=== PATIENT | male | born 1960 | race Caucasian/White ===

== ENCOUNTER 2020-05-30 12:39 | Inpatient (IN) | payer BC ==
[~2020-05-30] VITALS: Ht 162.6 cm; Wt 85.9 kg
[2020-05-30] MEDS ORDERED: methylPREDNISolone sod succ 125mg/2ml vial IV ONE (12:45)
[2020-05-30] MEDS ORDERED: ipratropium/albuterol 3ml nebule NEB ONE (12:45)
[2020-05-30 13:26] LABS: ABG BASE EXCESS 2.4 mmol/L (-2.0-2.0); ABG HCO3 27.3 mmol/L (22.0-26.0); ABG OXYGEN SATURATION 98.6 % (94-97); ABG PCO2 (T) 43.1 mmHg (35.0-48.0); ALLEN'S TEST POSITIVE; FCOHb 1.9 % (0.0-3.9); FLOW 15 L/min; FMetHb 0.3 % (0.0-1.5); FO2Hb 96.4 % (94-97)
[2020-05-30 13:37] LABS: D-DIMER 0.48 MG/L FEU (0-0.50); PARTIAL THROMBOPLASTIN TIME 30 SECONDS (22-32)
[2020-05-30] MEDS ORDERED: LORazepam 2 mg/ml vial IV ONE (14:00)
[2020-05-30 14:25] LABS: C-REACTIVE PROTEIN 9.19 MG/DL (0.0-0.5); FERRITIN 204 NG/ML (26-388); LACTATE DEHYDROGENASE 382 U/L (85-227)
[2020-05-30 14:33] LABS: CLARITY,URINE SLIGHTLY CLOUDY (Clear); COLOR,URINE YELLOW (Yellow); GLUCOSE, URINE NEGATIVE (Neg); KETONES,URINE NEGATIVE (Neg); LEUKOCYTE ESTERASE ,URINE NEGATIVE (Neg); NITRITES, URINE NEGATIVE (Neg); OCCULT BLOOD,URINE LARGE (Neg); PH,URINE 5.5 (4.8-8.0); PROTEIN,URINE 100 mg/dl (Neg)
[2020-05-30 14:39] LABS: BASOPHILS # (AUTO) 0.1 X10'3 (0-0.2); BASOPHILS % (AUTO) 0.5 % (0-1); EOSINOPHILS # (AUTO) 0.6 X10'3 (0-0.9); EOSINOPHILS % (AUTO) 4.5 % (0-6); HEMATOCRIT 49.4 % (42.0-52.0); HEMOGLOBIN 16.3 g/dl (14.0-17.9); LYMPHOCYTES # (AUTO) 1.8 X10'3 (1.1-4.8); LYMPHOCYTES % (AUTO) 14.3 % (21-51); MEAN CORPUSCULAR HEMOGLOBIN 26.6 PG (27.0-31.0); MEAN CORPUSCULAR VOLUME 80.8 FL (78-98); MEAN PLATELET VOLUME 8.8 FL (7.4-10.4); MONOCYTES # (AUTO) 1.2 X10'3 (0-0.9); MONOCYTES % (AUTO) 9.7 % (2-12); NEUTROPHILS # (AUTO) 8.8 X10'3 (1.8-7.7); PLATELET COUNT 394 X10'3 (140-440); RED BLOOD COUNT 6.12 X10'6 (4.70-6.10); RED CELL DISTRIBUTION WIDTH 15.4 % (11.5-14.5); WHITE BLOOD COUNT 12.3 X10'3 (4.5-11.0)
[2020-05-30 14:48] LABS: ALANINE AMINOTRANSFERASE 24 U/L (12-78); ALBUMIN 3.1 G/DL (3.4-5.0); ALBUMIN/GLOBULIN RATIO 0.7 (1.1-1.5); ALKALINE PHOSPHATASE 152 IU/L (46-116); ANION GAP 11 (8-16); ASPARTATE AMINO TRANSFERASE 29 U/L (10-37); BILIRUBIN,TOTAL 0.7 MG/DL (0.1-1.0); BLOOD UREA NITROGEN 16 MG/DL (7-18); BUN/CREATININE RATIO 18.2 (5.4-32.0); CALCIUM 9.4 MG/DL (8.5-10.1); CHLORIDE 100 MMOL/L (99-107); CREATININE 0.88 MG/DL (0.60-1.10); GLUCOSE 144 MG/DL (70-104); POTASSIUM 3.6 MMOL/L (3.5-5.1); SODIUM 138 MMOL/L (135-145); TOTAL CARBON DIOXIDE 26.6 MMOL/L (24-32); TOTAL PROTEIN 7.7 G/DL (6.4-8.2); eGFR 88 ML/MIN
[2020-05-30 14:52] LABS: UA COLLECTION TYPE URINAL
[2020-05-30 15:00] LABS: MUCUS STRANDS MANY /LPF (Neg)
[2020-05-30 15:02] LABS: COARSE GRANULAR CAST 0-3 /LPF (NEGATIVE); HYALINE CASTS 0-3 /LPF (NEGATIVE)
[2020-05-30 15:04] LABS: SQUAMOUS EPITHELIAL CELL,UR FEW /LPF (FEW)
[2020-05-30 15:05] LABS: BACTERIA,URINE FEW /HPF (Neg)
[2020-05-30 15:07] LABS: TRANSITIONAL EPI CELLS,URINE FEW /HPF
[2020-05-30] MEDS ORDERED: iohexol 350MG/ML 100ml bottle IV ONE (15:20)
--- NOTE | 2020-05-30 15:23 | NUR ---
patient to ct.
--- NOTE | 2020-05-30 16:12 | NUR ---
PATIENT ASLEEP.WE WILL MONITOR.
[2020-05-30] MEDS ORDERED: magnesium 2GM in 50ml NS 50 ML IV PRN (17:20)
[2020-05-30] MEDS ORDERED: magnesium 4gm in 100ml NS 100 ML IV PRN (17:20)
[2020-05-30] MEDS ORDERED: bisacodyl 10mg suppository rectal RC PRN (17:20)
[2020-05-30] MEDS ORDERED: mag hydrox/Alum hydrox/simeth 30ml oral suspension PO PRN (17:20)
[2020-05-30] MEDS ORDERED: magnesium Cl slow-release 64mg tablet PO PRN (17:20)
[2020-05-30] MEDS ORDERED: potassium CL 10mEq/100ml bag 100 ML IV PRN ×2 (17:20)
[2020-05-30] MEDS ORDERED: diphenhydrAMINE 25mg capsule PO PRN (17:20)
[2020-05-30] MEDS ORDERED: ipratropium/albuterol 3ml nebule NEB PRN (17:20)
[2020-05-30] MEDS ORDERED: magnesium hydroxide 30ml (MOM) UD suspension PO PRN (17:20)
[2020-05-30] MEDS ORDERED: HYDROcodone/acetaminophen 5mg/325mg tablet PO PRN (17:20)
[2020-05-30] MEDS ORDERED: potassium Cl 20 mEq SR tablet PO PRN ×2 (17:20)
[2020-05-30] MEDS ORDERED: ondansetron/PF 4mg/2ml inj IV PRN (17:20)
[2020-05-30] MEDS ORDERED: acetaminophen 325mg tablet PO PRN ×2 (17:20)
[2020-05-30] MEDS ORDERED: acetaminophen 650mg rectal suppository RC PRN (17:20)
[2020-05-30] MEDS ORDERED: HYDROcodone/acetaminophen 10/325mg tab PO PRN (17:20)
[2020-05-30] MEDS ORDERED: MULT-384 PO (17:55)
[2020-05-30] MEDS ORDERED: HYDR25TA4 PO (17:55)
[2020-05-30] MEDS ORDERED: MYCO500T5 PO (17:55)
[2020-05-30] MEDS ORDERED: GEMF600T89 PO (17:55)
[2020-05-30] MEDS ORDERED: ASPI-611 PO (17:55)
[2020-05-30] MEDS ORDERED: OMEG-79 PO (17:55)
[2020-05-30] MEDS ORDERED: ALBU18HF2 IH (17:55)
[2020-05-30] MEDS: levoFLOXACIN-Levaquin 750MG/D5 150 ML IV SCH (17:59)
[2020-05-30] MEDS: normal saline 1000ml 1,000 ML IV SCH (18:00)
[2020-05-30 18:19] LABS: HEMOGLOBIN A1C 5.9 % (4.5-6.2)
[2020-05-30] MEDS: ipratropium/albuterol 3ml nebule NEB SCH ×2 (18:59→23:55)
[2020-05-30 20:00] VITALS: BP 148/89
[2020-05-30] MEDS: mycophenolate mofetil 250mg capsule PO SCH (20:00)
[2020-05-30] MEDS: K and/or MAG REPLACEMENT MC SCH (20:00)
--- NOTE | 2020-05-30 20:00 | NUR ---
I have received report from Michelle CARLOS and had the opportunity to ask questions.
--- NOTE | 2020-05-30 20:10 | NUR ---
Patient transferred from ER via gurney. Patient is in stable condition AOx4. MRSA sample collected and physical assessment performed. Vitals signs Temp 98.9, HR 115, RR 26, O2 94 on 12 liters High flow nasal cannula. BP 148/89, no pain at this time. Tele monitor attached. Bed locked and lowered, call light in reach, will continue to monitor.
[2020-05-30] MEDS ORDERED: temazepam 15mg capsule PO PRN (21:00)
[2020-05-30] MEDS: methylPREDNISolone sod succ 125mg/2ml vial IV SCH (21:04)
[2020-05-30] MEDS: heparin, porcine 5000 units/ml vial SQ SCH (21:05)
[2020-05-30 22:00] VITALS: BP 116/75
--- NOTE | 2020-05-30 22:06 | NUR ---
message sent to pharmacy regarding cellcept capsules.
[2020-05-31] MEDS: LORazepam 2 mg/ml vial IV PRN ×4 (00:16→19:55)
[2020-05-31 02:00] VITALS: BP 116/87
[2020-05-31] MEDS: methylPREDNISolone sod succ 125mg/2ml vial IV SCH ×4 (02:00→19:54)
[2020-05-31] MEDS: ipratropium/albuterol 3ml nebule NEB SCH ×6 (03:42→23:14)
[2020-05-31 03:48] LABS: BASOPHILS % (AUTO) 0.3 % (0-1); EOSINOPHILS % (AUTO) 0 % (0-6); HEMOGLOBIN 15.1 g/dl (14.0-17.9); LYMPHOCYTES # (AUTO) 0.6 X10'3 (1.1-4.8); LYMPHOCYTES % (AUTO) 5.6 % (21-51); MEAN CORPUSCULAR HGB CONC 33.5 g/dL (33.0-36.5); MEAN CORPUSCULAR VOLUME 80.6 FL (78-98); MEAN PLATELET VOLUME 8.5 FL (7.4-10.4); MONOCYTES # (AUTO) 0.3 X10'3 (0-0.9); MONOCYTES % (AUTO) 2.8 % (2-12); NEUTROPHILS # (AUTO) 10.1 X10'3 (1.8-7.7); NEUTROPHILS % (AUTO) 91.3 % (42-75); PLATELET COUNT 404 X10'3 (140-440); RED BLOOD COUNT 5.59 X10'6 (4.70-6.10)
[2020-05-31 03:55] LABS: ALANINE AMINOTRANSFERASE 25 U/L (12-78); ALBUMIN 2.9 G/DL (3.4-5.0); ALBUMIN/GLOBULIN RATIO 0.6 (1.1-1.5); ALKALINE PHOSPHATASE 141 IU/L (46-116); ANION GAP 6 (8-16); ASPARTATE AMINO TRANSFERASE 18 U/L (10-37); BILIRUBIN,TOTAL 0.5 MG/DL (0.1-1.0); BLOOD UREA NITROGEN 20 MG/DL (7-18); BUN/CREATININE RATIO 21.5 (5.4-32.0); CALCIUM 9.6 MG/DL (8.5-10.1); CHLORIDE 102 MMOL/L (99-107); CREATININE 0.93 MG/DL (0.60-1.10); GLUCOSE 242 MG/DL (70-104); POTASSIUM 3.7 MMOL/L (3.5-5.1); SODIUM 138 MMOL/L (135-145); TOTAL CARBON DIOXIDE 29.9 MMOL/L (24-32); TOTAL PROTEIN 7.4 G/DL (6.4-8.2); eGFR 83 ML/MIN
[2020-05-31 03:58] LABS: CHOL/HDL RATIO 4.5 (0.00-4.99); CHOLESTEROL 140 MG/DL (0-200); HDL CHOLESTEROL 31 MG/DL (35-60); LDL CHOLESTEROL 98 MG/DL (50-100); MAGNESIUM 2.2 MG/DL (1.5-2.4); PHOSPHORUS 3.3 MG/DL (2.3-4.5); TRIGLYCERIDES 54 MG/DL (20-135)
[2020-05-31 06:00] VITALS: BP 111/78
--- NOTE | 2020-05-31 06:35 | NUR ---
Problems reprioritized. Patient report given, questions answered & plan of care reviewed with Emily CARLOS.
--- NOTE | 2020-05-31 06:54 | NUR ---
Patient in room PCU 3014. I have received report from BREANNA Ruffin and had the opportunity to ask questions and assume patient care.
[2020-05-31] MEDS: K and/or MAG REPLACEMENT MC SCH ×2 (08:41→19:42)
[2020-05-31] MEDS: levoFLOXACIN-Levaquin 750MG/D5 150 ML IV SCH (08:45)
[2020-05-31] MEDS: mycophenolate mofetil 250mg capsule PO SCH ×2 (08:46→19:54)
[2020-05-31] MEDS: multivitamins, therapeutics tablet PO SCH (08:46)
[2020-05-31] MEDS: HYDROchlorothiazide 25mg tablet PO SCH (08:46)
[2020-05-31] MEDS: aspirin 81mg tab.chew PO SCH (08:46)
[2020-05-31] MEDS: heparin, porcine 5000 units/ml vial SQ SCH ×2 (08:46→19:55)
[2020-05-31] MEDS: gemfibrozil 600mg tablet PO SCH ×2 (08:47→17:16)
[2020-05-31] MEDS: omega-3 acid ethyl esters 1GM capsule PO SCH (08:55)
[2020-05-31 11:00] VITALS: BP 104/71
[2020-05-31 12:00] VITALS: BP 122/74
[2020-05-31] MEDS: normal saline 1000ml 1,000 ML IV SCH (17:17)
[2020-05-31 18:00] VITALS: BP 125/74
--- NOTE | 2020-05-31 18:08 | NUR ---
Patient in room [facility] 3014. I have received report from BREANNA Donis and had the opportunity to ask questions and assume patient care. Addendum: 05/31/20 at 1808 by Emily Del Cid RN Problems reprioritized. Patient report given, questions answered & plan of care reviewed with BREANNA Donis.
[2020-05-31] MEDS: lactobacillus rhamnosus 10,000 MMU CELLS/CAPSULE PO SCH (19:55)
[2020-05-31 22:00] VITALS: BP 131/79
[2020-05-31] MEDS: morphine 2 MG/ML inj. syringe IV PRN (23:12)
[2020-06-01 02:00] VITALS: BP 127/75
[2020-06-01] MEDS: methylPREDNISolone sod succ 125mg/2ml vial IV SCH ×4 (02:12→20:18)
[2020-06-01] MEDS: ipratropium/albuterol 3ml nebule NEB SCH ×6 (03:32→23:18)
[2020-06-01 06:00] VITALS: BP 88/54
--- NOTE | 2020-06-01 06:04 | NUR ---
Problems reprioritized. Patient report given, questions answered & plan of care reviewed with Emily CARLOS.
[2020-06-01 06:22] LABS: BASOPHILS # (AUTO) 0.1 X10'3 (0-0.2); BASOPHILS % (AUTO) 0.3 % (0-1); EOSINOPHILS % (AUTO) 0 % (0-6); HEMATOCRIT 40.6 % (42.0-52.0); HEMOGLOBIN 13.5 g/dl (14.0-17.9); LYMPHOCYTES # (AUTO) 0.6 X10'3 (1.1-4.8); LYMPHOCYTES % (AUTO) 3.7 % (21-51); MEAN CORPUSCULAR HGB CONC 33.3 g/dL (33.0-36.5); MEAN CORPUSCULAR VOLUME 81.1 FL (78-98); MEAN PLATELET VOLUME 8.6 FL (7.4-10.4); MONOCYTES # (AUTO) 0.8 X10'3 (0-0.9); MONOCYTES % (AUTO) 4.3 % (2-12); NEUTROPHILS # (AUTO) 16.3 X10'3 (1.8-7.7); NEUTROPHILS % (AUTO) 91.7 % (42-75); PLATELET COUNT 392 X10'3 (140-440); RED CELL DISTRIBUTION WIDTH 15.3 % (11.5-14.5); WHITE BLOOD COUNT 17.8 X10'3 (4.5-11.0)
[2020-06-01 06:41] LABS: ALANINE AMINOTRANSFERASE 24 U/L (12-78); ALBUMIN 2.7 G/DL (3.4-5.0); ALBUMIN/GLOBULIN RATIO 0.7 (1.1-1.5); ALKALINE PHOSPHATASE 123 IU/L (46-116); ANION GAP 4 (8-16); ASPARTATE AMINO TRANSFERASE 15 U/L (10-37); BILIRUBIN,TOTAL 0.3 MG/DL (0.1-1.0); BLOOD UREA NITROGEN 18 MG/DL (7-18); BUN/CREATININE RATIO 21.4 (5.4-32.0); CALCIUM 9.1 MG/DL (8.5-10.1); CHLORIDE 101 MMOL/L (99-107); CREATININE 0.84 MG/DL (0.60-1.10); GLUCOSE 284 MG/DL (70-104); PHOSPHORUS 3.3 MG/DL (2.3-4.5); SODIUM 137 MMOL/L (135-145); TOTAL CARBON DIOXIDE 31.6 MMOL/L (24-32); TOTAL PROTEIN 6.4 G/DL (6.4-8.2); eGFR > 90 ML/MIN
[2020-06-01] MEDS: K and/or MAG REPLACEMENT MC SCH ×2 (08:22→20:00)
[2020-06-01] MEDS: multivitamins, therapeutics tablet PO SCH (08:24)
[2020-06-01] MEDS: aspirin 81mg tab.chew PO SCH (08:24)
[2020-06-01] MEDS: omega-3 acid ethyl esters 1GM capsule PO SCH (08:24)
[2020-06-01] MEDS: gemfibrozil 600mg tablet PO SCH ×2 (08:24→16:03)
[2020-06-01] MEDS: levoFLOXACIN-Levaquin 750MG/D5 150 ML IV SCH (08:24)
[2020-06-01] MEDS: lactobacillus rhamnosus 10,000 MMU CELLS/CAPSULE PO SCH ×2 (08:24→20:18)
[2020-06-01] MEDS: mycophenolate mofetil 250mg capsule PO SCH ×2 (08:24→20:19)
[2020-06-01] MEDS: heparin, porcine 5000 units/ml vial SQ SCH ×2 (08:25→20:18)
[2020-06-01] MEDS: HYDROchlorothiazide 25mg tablet PO SCH (08:29)
[2020-06-01] MEDS: LORazepam 2 mg/ml vial IV PRN ×3 (08:40→20:18)
[2020-06-01 11:00] VITALS: BP 112/72
--- NOTE | 2020-06-01 13:18 | NUR ---
New orders from mandi to discontinue normal saline @50cc
[2020-06-01 15:00] VITALS: BP 126/80
--- NOTE | 2020-06-01 15:30 | NUR ---
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 Replaced by RT.
[2020-06-01 18:00] VITALS: BP 127/84
--- NOTE | 2020-06-01 18:14 | NUR ---
Problems reprioritized. Patient report given, questions answered & plan of care reviewed with BREANNA Yanez.
--- NOTE | 2020-06-01 18:25 | NUR ---
Patient in room PCU 3014. I have received report from Emily CARLOS and had the opportunity to ask questions and assume patient care.
--- NOTE | 2020-06-01 21:50 | NUR ---
pt sat on the edge of the bed and began to desat and had persistent coughing. HiFlow @ 15L and NRB applied @ 15L for aprox. 15-20 mins until pt breathing was under control and saturations were back WNL. pt is currently on 15L HiFlow.
[2020-06-01 22:00] VITALS: BP 111/70
[2020-06-01] MEDS: morphine 2 MG/ML inj. syringe IV PRN (22:00)
[2020-06-02] MEDS: methylPREDNISolone sod succ 125mg/2ml vial IV SCH ×4 (01:19→19:59)
[2020-06-02 02:00] VITALS: BP 136/98
[2020-06-02 02:08] LABS: ALANINE AMINOTRANSFERASE 25 U/L (12-78); ALBUMIN 2.8 G/DL (3.4-5.0); ALBUMIN/GLOBULIN RATIO 0.8 (1.1-1.5); ALKALINE PHOSPHATASE 117 IU/L (46-116); ANION GAP 4 (8-16); ASPARTATE AMINO TRANSFERASE 13 U/L (10-37); BILIRUBIN,TOTAL 0.3 MG/DL (0.1-1.0); BLOOD UREA NITROGEN 21 MG/DL (7-18); BUN/CREATININE RATIO 24.4 (5.4-32.0); CHLORIDE 99 MMOL/L (99-107); CREATININE 0.86 MG/DL (0.60-1.10); GLUCOSE 189 MG/DL (70-104); MAGNESIUM 2.1 MG/DL (1.5-2.4); POTASSIUM 4.5 MMOL/L (3.5-5.1); SODIUM 138 MMOL/L (135-145); TOTAL CARBON DIOXIDE 35.1 MMOL/L (24-32); TOTAL PROTEIN 6.5 G/DL (6.4-8.2); eGFR > 90 ML/MIN
[2020-06-02 02:18] LABS: BASOPHILS % (AUTO) 0.1 % (0-1); EOSINOPHILS % (AUTO) 0 % (0-6); HEMATOCRIT 41.2 % (42.0-52.0); HEMOGLOBIN 13.4 g/dl (14.0-17.9); LYMPHOCYTES # (AUTO) 0.7 X10'3 (1.1-4.8); LYMPHOCYTES % (AUTO) 4.6 % (21-51); MEAN CORPUSCULAR HGB CONC 32.4 g/dL (33.0-36.5); MEAN CORPUSCULAR VOLUME 80.2 FL (78-98); MEAN PLATELET VOLUME 8.7 FL (7.4-10.4); MONOCYTES # (AUTO) 0.7 X10'3 (0-0.9); MONOCYTES % (AUTO) 4.4 % (2-12); NEUTROPHILS # (AUTO) 14.6 X10'3 (1.8-7.7); NEUTROPHILS % (AUTO) 90.9 % (42-75); PLATELET COUNT 405 X10'3 (140-440); RED BLOOD COUNT 5.14 X10'6 (4.70-6.10); RED CELL DISTRIBUTION WIDTH 14.9 % (11.5-14.5); WHITE BLOOD COUNT 16.1 X10'3 (4.5-11.0)
[2020-06-02] MEDS: ipratropium/albuterol 3ml nebule NEB SCH ×6 (02:51→22:29)
--- NOTE | 2020-06-02 06:18 | NUR ---
Problems reprioritized. Patient report given, questions answered & plan of care reviewed with Daniela CARLOS.
--- NOTE | 2020-06-02 06:18 | NUR ---
Patient in room PCU 3014. I have received report from BREANNA Yanez and had the opportunity to ask questions and assume patient care.
[2020-06-02] MEDS: K and/or MAG REPLACEMENT MC SCH ×2 (07:19→20:00)
[2020-06-02 07:23] VITALS: BP 111/73
[2020-06-02] MEDS: LORazepam 2 mg/ml vial IV PRN ×3 (08:16→19:46)
[2020-06-02] MEDS: HYDROchlorothiazide 25mg tablet PO SCH (08:24)
[2020-06-02] MEDS: multivitamins, therapeutics tablet PO SCH (08:24)
[2020-06-02] MEDS: aspirin 81mg tab.chew PO SCH (08:24)
[2020-06-02] MEDS: mycophenolate mofetil 250mg capsule PO SCH ×2 (08:24→19:59)
[2020-06-02] MEDS: gemfibrozil 600mg tablet PO SCH ×2 (08:24→16:47)
[2020-06-02] MEDS: lactobacillus rhamnosus 10,000 MMU CELLS/CAPSULE PO SCH ×2 (08:24→19:59)
[2020-06-02] MEDS: omega-3 acid ethyl esters 1GM capsule PO SCH (08:24)
[2020-06-02] MEDS: heparin, porcine 5000 units/ml vial SQ SCH ×2 (08:25→19:59)
[2020-06-02 11:37] VITALS: BP 111/75
[2020-06-02] MEDS: levoFLOXACIN 750MG TABLET PO SCH (11:50)
[2020-06-02 15:33] VITALS: BP 123/76
[2020-06-02 18:00] VITALS: BP 124/79
--- NOTE | 2020-06-02 18:24 | NUR ---
Problems reprioritized. Patient report given, questions answered & plan of care reviewed with BREANNA Reynolds.
[2020-06-02] MEDS: morphine 2 MG/ML inj. syringe IV PRN (21:42)
[2020-06-03] VITALS (7 sets, daily range): BP systolic 115–136; BP diastolic 66–82
[2020-06-03] MEDS: LORazepam 2 mg/ml vial IV PRN ×5 (00:08→23:59)
[2020-06-03] MEDS: methylPREDNISolone sod succ 125mg/2ml vial IV SCH ×4 (00:08→23:58)
[2020-06-03] MEDS: ipratropium/albuterol 3ml nebule NEB SCH ×6 (03:00→23:20)
[2020-06-03] MEDS: morphine 2 MG/ML inj. syringe IV PRN ×3 (03:33→19:55)
[2020-06-03 05:54] LABS: BASOPHILS % (AUTO) 0.2 % (0-1); EOSINOPHILS % (AUTO) 0 % (0-6); HEMOGLOBIN 13.6 g/dl (14.0-17.9); LYMPHOCYTES # (AUTO) 0.7 X10'3 (1.1-4.8); LYMPHOCYTES % (AUTO) 5.5 % (21-51); MEAN CORPUSCULAR HGB CONC 33.1 g/dL (33.0-36.5); MEAN CORPUSCULAR VOLUME 81.5 FL (78-98); MEAN PLATELET VOLUME 8.5 FL (7.4-10.4); MONOCYTES # (AUTO) 0.6 X10'3 (0-0.9); MONOCYTES % (AUTO) 4.8 % (2-12); NEUTROPHILS # (AUTO) 11.6 X10'3 (1.8-7.7); NEUTROPHILS % (AUTO) 89.5 % (42-75); PLATELET COUNT 379 X10'3 (140-440); RED BLOOD COUNT 5.02 X10'6 (4.70-6.10); RED CELL DISTRIBUTION WIDTH 14.8 % (11.5-14.5)
[2020-06-03 06:15] LABS: ALANINE AMINOTRANSFERASE 24 U/L (12-78); ALBUMIN 2.8 G/DL (3.4-5.0); ALBUMIN/GLOBULIN RATIO 0.8 (1.1-1.5); ALKALINE PHOSPHATASE 130 IU/L (46-116); ANION GAP 4 (8-16); ASPARTATE AMINO TRANSFERASE 12 U/L (10-37); BILIRUBIN,TOTAL 0.3 MG/DL (0.1-1.0); BLOOD UREA NITROGEN 18 MG/DL (7-18); BUN/CREATININE RATIO 20.9 (5.4-32.0); CALCIUM 9.2 MG/DL (8.5-10.1); CHLORIDE 97 MMOL/L (99-107); CREATININE 0.86 MG/DL (0.60-1.10); GLUCOSE 305 MG/DL (70-104); MAGNESIUM 2.3 MG/DL (1.5-2.4); POTASSIUM 4.4 MMOL/L (3.5-5.1); SODIUM 136 MMOL/L (135-145); TOTAL CARBON DIOXIDE 35.2 MMOL/L (24-32); TOTAL PROTEIN 6.3 G/DL (6.4-8.2); eGFR > 90 ML/MIN
--- NOTE | 2020-06-03 06:33 | NUR ---
Problems reprioritized. Patient report given, questions answered & plan of care reviewed with BREANNA Green.
--- NOTE | 2020-06-03 06:36 | NUR ---
Patient in room PCU 3014. I have received report from Gail CARLOS and had the opportunity to ask questions and assume patient care. Patient resting in bed, on 12L high flow, offers no complaints, will continue to monitor.
[2020-06-03] MEDS: K and/or MAG REPLACEMENT MC SCH ×2 (08:00→20:00)
[2020-06-03] MEDS: gemfibrozil 600mg tablet PO SCH ×2 (08:30→16:01)
[2020-06-03] MEDS: omega-3 acid ethyl esters 1GM capsule PO SCH (08:31)
[2020-06-03] MEDS: lactobacillus rhamnosus 10,000 MMU CELLS/CAPSULE PO SCH ×2 (08:31→19:55)
[2020-06-03] MEDS: aspirin 81mg tab.chew PO SCH (08:31)
[2020-06-03] MEDS: mycophenolate mofetil 250mg capsule PO SCH ×2 (08:31→19:56)
[2020-06-03] MEDS: HYDROchlorothiazide 25mg tablet PO SCH (08:31)
[2020-06-03] MEDS: multivitamins, therapeutics tablet PO SCH (08:31)
[2020-06-03] MEDS: heparin, porcine 5000 units/ml vial SQ SCH ×2 (08:32→19:56)
[2020-06-03] MEDS: levoFLOXACIN 750MG TABLET PO SCH (12:05)
--- NOTE | 2020-06-03 18:32 | NUR ---
Problems reprioritized. Patient report given, questions answered & plan of care reviewed with Norma CARLOS.
--- NOTE | 2020-06-03 18:43 | NUR ---
Patient in room PCU 3014. I have received report from BREANNA CHERRY and had the opportunity to ask questions and assume patient care.
[2020-06-04 02:00] VITALS: BP 117/67
[2020-06-04] MEDS: ipratropium/albuterol 3ml nebule NEB SCH ×6 (02:54→23:23)
--- NOTE | 2020-06-04 06:22 | NUR ---
Problems reprioritized. Patient report given, questions answered & plan of care reviewed with DILIP RN.
[2020-06-04 06:29] LABS: BASOPHILS % (AUTO) 0.1 % (0-1); EOSINOPHILS % (AUTO) 0 % (0-6); HEMATOCRIT 43.2 % (42.0-52.0); HEMOGLOBIN 14.1 g/dl (14.0-17.9); LYMPHOCYTES # (AUTO) 0.8 X10'3 (1.1-4.8); LYMPHOCYTES % (AUTO) 6.1 % (21-51); MEAN CORPUSCULAR HEMOGLOBIN 26.3 PG (27.0-31.0); MEAN CORPUSCULAR HGB CONC 32.7 g/dL (33.0-36.5); MEAN CORPUSCULAR VOLUME 80.5 FL (78-98); MEAN PLATELET VOLUME 8.4 FL (7.4-10.4); MONOCYTES # (AUTO) 0.6 X10'3 (0-0.9); MONOCYTES % (AUTO) 4.1 % (2-12); NEUTROPHILS # (AUTO) 12.2 X10'3 (1.8-7.7); NEUTROPHILS % (AUTO) 89.7 % (42-75); PLATELET COUNT 429 X10'3 (140-440); RED BLOOD COUNT 5.36 X10'6 (4.70-6.10); RED CELL DISTRIBUTION WIDTH 14.9 % (11.5-14.5); WHITE BLOOD COUNT 13.6 X10'3 (4.5-11.0)
--- NOTE | 2020-06-04 06:31 | NUR ---
Patient in room PCU 3014. I have received report from Norma HERRERA and had the opportunity to ask questions and assume patient care. Patient awake and oriented, O2sat in the 80s, bumped to 15L high flow and anxious, assistant casino shift manager RN will administer anxiety medication, will continue to monitor.
[2020-06-04] MEDS: LORazepam 2 mg/ml vial IV PRN ×2 (06:32→13:30)
[2020-06-04 06:44] LABS: ALANINE AMINOTRANSFERASE 43 U/L (12-78); ALBUMIN 2.8 G/DL (3.4-5.0); ALBUMIN/GLOBULIN RATIO 0.8 (1.1-1.5); ALKALINE PHOSPHATASE 120 IU/L (46-116); ANION GAP 2 (8-16); ASPARTATE AMINO TRANSFERASE 20 U/L (10-37); BILIRUBIN,TOTAL 0.3 MG/DL (0.1-1.0); BLOOD UREA NITROGEN 18 MG/DL (7-18); BUN/CREATININE RATIO 22.5 (5.4-32.0); CALCIUM 9.2 MG/DL (8.5-10.1); CHLORIDE 99 MMOL/L (99-107); GLUCOSE 224 MG/DL (70-104); MAGNESIUM 2.2 MG/DL (1.5-2.4); PHOSPHORUS 3.4 MG/DL (2.3-4.5); POTASSIUM 4.7 MMOL/L (3.5-5.1); SODIUM 136 MMOL/L (135-145); TOTAL CARBON DIOXIDE 35.1 MMOL/L (24-32); TOTAL PROTEIN 6.3 G/DL (6.4-8.2); eGFR > 90 ML/MIN
[2020-06-04] MEDS: K and/or MAG REPLACEMENT MC SCH ×2 (06:57→20:00)
[2020-06-04 07:00] VITALS: BP 118/74
[2020-06-04] MEDS: multivitamins, therapeutics tablet PO SCH (07:22)
[2020-06-04] MEDS: mycophenolate mofetil 250mg capsule PO SCH ×2 (07:22→20:45)
[2020-06-04] MEDS: lactobacillus rhamnosus 10,000 MMU CELLS/CAPSULE PO SCH (07:22)
[2020-06-04] MEDS: methylPREDNISolone sod succ 125mg/2ml vial IV SCH (07:22)
[2020-06-04] MEDS: aspirin 81mg tab.chew PO SCH (07:22)
[2020-06-04] MEDS: gemfibrozil 600mg tablet PO SCH ×2 (07:22→17:18)
[2020-06-04] MEDS: omega-3 acid ethyl esters 1GM capsule PO SCH (07:23)
[2020-06-04] MEDS: HYDROchlorothiazide 25mg tablet PO SCH (07:23)
[2020-06-04] MEDS: heparin, porcine 5000 units/ml vial SQ SCH ×2 (07:24→20:47)
[2020-06-04 07:36] LABS: GIANT PLATELET FEW; TOTAL CELLS COUNTED 100
[2020-06-04 07:37] LABS: LARGE PLATELETS FEW; PLATELET ESTIMATE NORMAL; TOXIC GRANULATION 1+
[2020-06-04 11:00] VITALS: BP 131/86
--- NOTE | 2020-06-04 11:27 | NUR ---
Good appetite, eating 75-100% of meals. Recommend: 1. continue heart healthy diet 2. bowel care as needed 3. Wt per rx Addendum: 06/04/20 at [address] Amended: Links added.
[2020-06-04] MEDS: levoFLOXACIN 750MG TABLET PO SCH (13:28)
[2020-06-04 15:00] VITALS: BP 119/86
[2020-06-04] MEDS: morphine 2 MG/ML inj. syringe IV PRN ×2 (17:19)
[2020-06-04 18:00] VITALS: BP 119/92
--- NOTE | 2020-06-04 18:15 | NUR ---
Patient in room PCU 3014. I have received report from BREANNA HCERRY and had the opportunity to ask questions and assume patient care.
--- NOTE | 2020-06-04 18:16 | NUR ---
Problems reprioritized. Patient report given, questions answered & plan of care reviewed with Norma Casanova
[2020-06-04 22:00] VITALS: BP 94/76
[2020-06-05 02:00] VITALS: BP 109/79
[2020-06-05] MEDS: LORazepam 2 mg/ml vial IV PRN ×4 (02:56→18:53)
[2020-06-05] MEDS: ipratropium/albuterol 3ml nebule NEB SCH ×6 (03:18→23:23)
[2020-06-05 06:00] VITALS: BP 108/66
--- NOTE | 2020-06-05 06:44 | NUR ---
Patient in room PCU 3014. I have received report from BREANNA GUERRERO and had the opportunity to ask questions and assume patient care.
[2020-06-05] MEDS: gemfibrozil 600mg tablet PO SCH ×2 (07:06→17:01)
[2020-06-05] MEDS: aspirin 81mg tab.chew PO SCH (07:54)
[2020-06-05] MEDS: mycophenolate mofetil 250mg capsule PO SCH ×2 (07:56→20:50)
[2020-06-05] MEDS: HYDROchlorothiazide 25mg tablet PO SCH (07:57)
[2020-06-05] MEDS: OMEGA-3/DHA/EPA/FISH OIL 1 EACH CAPSULE.DR PO SCH (07:57)
[2020-06-05] MEDS: multivitamins, therapeutics tablet PO SCH (07:58)
[2020-06-05] MEDS: predniSONE 20 mg tablet PO SCH (07:58)
[2020-06-05] MEDS: heparin, porcine 5000 units/ml vial SQ SCH ×2 (07:59→20:49)
[2020-06-05] MEDS: K and/or MAG REPLACEMENT MC SCH ×2 (08:00→20:00)
[2020-06-05 11:00] VITALS: BP 115/82
[2020-06-05] MEDS: levoFLOXACIN 750MG TABLET PO SCH (11:39)
[2020-06-05 15:00] VITALS: BP 113/87
[2020-06-05 18:00] VITALS: BP 127/87
--- NOTE | 2020-06-05 18:34 | NUR ---
Problems reprioritized. Patient report given, questions answered & plan of care reviewed with BREANNA GUERRERO.
[2020-06-05 22:00] VITALS: BP 119/82
[2020-06-05] MEDS: morphine 2 MG/ML inj. syringe IV PRN (23:05)
[2020-06-06 02:00] VITALS: BP 134/88
[2020-06-06] MEDS: ipratropium/albuterol 3ml nebule NEB SCH ×6 (03:06→23:52)
[2020-06-06] MEDS: LORazepam 2 mg/ml vial IV PRN (05:02)
--- NOTE | 2020-06-06 05:22 | NUR ---
Patient in room U 3014. I have received report from BREANNA Del Cid and had the opportunity to ask questions and assume patient care. Addendum: 06/06/20 at 0525 by Norma Bravo RN report received at 1820 on 06/05. original note is timed incorrectly.
[2020-06-06 06:30] VITALS: BP 106/88
--- NOTE | 2020-06-06 06:37 | NUR ---
Received report from Norma CARLOS, [facility].
--- NOTE | 2020-06-06 06:50 | NUR ---
Problems reprioritized. Patient report given, questions answered & plan of care reviewed with BREANNA Fernandes.
[2020-06-06] MEDS: K and/or MAG REPLACEMENT MC SCH ×2 (08:00→19:36)
[2020-06-06] MEDS: HYDROchlorothiazide 25mg tablet PO SCH (09:23)
[2020-06-06] MEDS: multivitamins, therapeutics tablet PO SCH (09:23)
[2020-06-06] MEDS: OMEGA-3/DHA/EPA/FISH OIL 1 EACH CAPSULE.DR PO SCH (09:23)
[2020-06-06] MEDS: predniSONE 20 mg tablet PO SCH (09:23)
[2020-06-06] MEDS: aspirin 81mg tab.chew PO SCH (09:23)
[2020-06-06] MEDS: gemfibrozil 600mg tablet PO SCH ×2 (09:23→17:31)
[2020-06-06] MEDS: heparin, porcine 5000 units/ml vial SQ SCH ×2 (09:24→19:30)
[2020-06-06] MEDS: mycophenolate mofetil 250mg capsule PO SCH ×2 (09:24→19:35)
[2020-06-06 11:00] VITALS: BP 111/77
[2020-06-06] MEDS: levoFLOXACIN 750MG TABLET PO SCH (12:08)
--- NOTE | 2020-06-06 13:39 | NUR ---
Paged hosp, "Dena [id number] Deangelo Caldera has iv Ativan 0.5 mg ordered. Can we change it to oral?" awaiting orders.
[2020-06-06 15:00] VITALS: BP 103/60
[2020-06-06] MEDS: LORazepam 1 MG tablet PO PRN ×2 (17:32→22:20)
[2020-06-06 18:00] VITALS: BP 121/86
--- NOTE | 2020-06-06 18:26 | NUR ---
GAVE REPORT TO RADHA CARLOS, TRANSFERRED CARE.
--- NOTE | 2020-06-06 21:18 | NUR ---
Patient in room PCU 3014. I have received report from Dena CARLOS and had the opportunity to ask questions and assume patient care.
[2020-06-06 22:00] VITALS: BP 96/67
[2020-06-07 02:00] VITALS: BP 125/77
[2020-06-07] MEDS: ipratropium/albuterol 3ml nebule NEB SCH ×3 (03:21→11:23)
[2020-06-07 06:00] VITALS: BP 100/71
--- NOTE | 2020-06-07 06:14 | NUR ---
Problems reprioritized. Patient report given, questions answered & plan of care reviewed with Edin CARLOS.
--- NOTE | 2020-06-07 06:45 | NUR ---
Patient in room PCU 3014. I have received report from Laly CARLOS and had the opportunity to ask questions and assume patient care.
--- NOTE | 2020-06-07 07:29 | NUR ---
Problems reprioritized. Patient report given, questions answered & plan of care reviewed with Dinah CARLOS.
[2020-06-07] MEDS: K and/or MAG REPLACEMENT MC SCH (08:00)
[2020-06-07] MEDS: predniSONE 20 mg tablet PO SCH (08:33)
[2020-06-07] MEDS: HYDROchlorothiazide 25mg tablet PO SCH (08:33)
[2020-06-07] MEDS: OMEGA-3/DHA/EPA/FISH OIL 1 EACH CAPSULE.DR PO SCH (08:33)
[2020-06-07] MEDS: aspirin 81mg tab.chew PO SCH (08:33)
[2020-06-07] MEDS: multivitamins, therapeutics tablet PO SCH (08:34)
[2020-06-07] MEDS: mycophenolate mofetil 250mg capsule PO SCH (08:37)
[2020-06-07] MEDS: heparin, porcine 5000 units/ml vial SQ SCH (08:39)
[2020-06-07] MEDS: LORazepam 1 MG tablet PO PRN (08:47)
[2020-06-07] MEDS: gemfibrozil 600mg tablet PO SCH (08:57)
[2020-06-07] MEDS ORDERED: LEVO750T46 PO (10:26)
[2020-06-07] MEDS ORDERED: IPRA3AMP9 NEB (10:26)
[2020-06-07] MEDS ORDERED: PRED20TA PO (10:28)
[2020-06-07 11:00] VITALS: BP 131/68
--- NOTE | 2020-06-07 11:52 | NUR ---
O2 Sat at rest on room air:_89__% If below 89%: Recovery O2 Sat at rest on __9_LPM:__93_%:___% via high flow nasal cannula (mask/nasal cannula, etc..) No further documentation is necessary. If O2 Sat did not drop below 89% on room air,ambulate patient on room air. O2 Sat while ambulating on room air:___% Recovery O2 Sat while ambulating on ___LPM:___% No further documentation is necessary. If patient does not drop below 89% while ambulating, he/she does not qualify for home O2.
--- NOTE | 2020-06-07 11:54 | NUR ---
Patient in room PCU 3014. I have received report from Edin and had the opportunity to ask questions and assume patient care.
== END 2020-06-07 15:14 | disposition home health service (06) | DRG 189 ==
LOC: ER 12:39 → ED HOLD 17:17 → PCU 3S 20:16
PROVIDERS: ADMIT Family Medicine; ATTEND Family Medicine
PROC: B32T1ZZ Computerized Tomography (CT Scan) of Left Pulmonary Artery using Low Osmolar Contrast (ICD-10-PCS; principal; 2020-05-30)
PROC: B32S1ZZ Computerized Tomography (CT Scan) of Right Pulmonary Artery using Low Osmolar Contrast (ICD-10-PCS; 2020-05-30)
DX: J96.21 Acute and chronic respiratory failure with hypoxia (principal); J44.1 Chronic obstructive pulmonary disease with (acute) exacerbation; E78.1 Pure hyperglyceridemia; E78.5 Hyperlipidemia, unspecified; J84.10 Pulmonary fibrosis, unspecified; I10 Essential (primary) hypertension; J98.4 Other disorders of lung; Z20.828 Contact with and (suspected) exposure to other viral communicable diseases; D72.829 Elevated white blood cell count, unspecified; T38.0X5A Adverse effect of glucocorticoids and synthetic analogues, initial encounter; Z79.899 Other long term (current) drug therapy; Z83.3 Family history of diabetes mellitus; Z87.891 Personal history of nicotine dependence
CPT/HCPCS: 36415; 36600; 71045; 71275; 80053; 80061; 81001; 82728; 82803; 83036; 83605; 83615; 83735; 83880; 84100; 84145; 84484; 85007; 85018; 85025; 85379; 85384; 85610; 85730; 86140; 87040; 87081; 87088; 87635; 93306; 93308; 94640; 94760; 96365; 96375; 97116; 97161; 97530; 99285; C9803; G0378; J1644; J1956; J2060; J2270; J2930; J7030; J7512; J7517; Q0163; Q9967

== ENCOUNTER 2020-07-12 01:30 | Inpatient (IN) | payer BC ==
[~2020-07-12] VITALS: Ht 167.6 cm; Wt 72.7 kg
[~2020-07-12 01:30] MED LIST: ALBU18HF2 IH; ASPI-611 PO; GEMF600T89 PO; HYDR25TA4 PO; IPRA3AMP9 NEB; LEVO750T46 PO; MULT-384 PO; MYCO500T5 PO; OMEG-79 PO; PRED20TA PO
[2020-07-12 01:58] LABS: BASOPHILS # (AUTO) 0.1 X10'3 (0-0.2); BASOPHILS % (AUTO) 0.6 % (0-1); EOSINOPHILS # (AUTO) 0.5 X10'3 (0-0.9); EOSINOPHILS % (AUTO) 3.1 % (0-6); HEMATOCRIT 46.9 % (42.0-52.0); HEMOGLOBIN 15.5 g/dl (14.0-17.9); LYMPHOCYTES # (AUTO) 1.2 X10'3 (1.1-4.8); LYMPHOCYTES % (AUTO) 8.1 % (21-51); MEAN CORPUSCULAR HEMOGLOBIN 26.3 PG (27.0-31.0); MEAN CORPUSCULAR HGB CONC 33.1 g/dL (33.0-36.5); MEAN CORPUSCULAR VOLUME 79.6 FL (78-98); MEAN PLATELET VOLUME 8.4 FL (7.4-10.4); MONOCYTES # (AUTO) 1.2 X10'3 (0-0.9); MONOCYTES % (AUTO) 7.6 % (2-12); NEUTROPHILS # (AUTO) 12.2 X10'3 (1.8-7.7); NEUTROPHILS % (AUTO) 80.6 % (42-75); PLATELET COUNT 443 X10'3 (140-440); RED BLOOD COUNT 5.89 X10'6 (4.70-6.10); RED CELL DISTRIBUTION WIDTH 16.3 % (11.5-14.5); WHITE BLOOD COUNT 15.2 X10'3 (4.5-11.0)
[2020-07-12] MEDS ORDERED: iohexol 350MG/ML 100ml bottle IV ONE (01:59)
[2020-07-12 02:12] LABS: D-DIMER 0.58 MG/L FEU (0-0.50)
[2020-07-12 02:13] LABS: ALANINE AMINOTRANSFERASE 19 U/L (12-78); ALBUMIN 2.9 G/DL (3.4-5.0); ALBUMIN/GLOBULIN RATIO 0.7 (1.1-1.5); ALKALINE PHOSPHATASE 128 IU/L (46-116); ANION GAP 1 (8-16); ASPARTATE AMINO TRANSFERASE 21 U/L (10-37); BILIRUBIN,TOTAL 0.4 MG/DL (0.1-1.0); BLOOD UREA NITROGEN 12 MG/DL (7-18); BUN/CREATININE RATIO 13.3 (5.4-32.0); CHLORIDE 99 MMOL/L (99-107); GLUCOSE 215 MG/DL (70-104); POTASSIUM 4.2 MMOL/L (3.5-5.1); SODIUM 135 MMOL/L (135-145); TOTAL CARBON DIOXIDE 34.6 MMOL/L (24-32); eGFR 86 ML/MIN
[2020-07-12 02:27] LABS: C-REACTIVE PROTEIN 3.59 MG/DL (0.0-0.5); FERRITIN 189 NG/ML (26-388); LACTATE DEHYDROGENASE 295 U/L (85-227)
[2020-07-12] MEDS ORDERED: heparin 10,000 units/1 ML INJ IV ONE (02:40)
[2020-07-12] MEDS ORDERED: dexamethasone sod phosphate 10mg/ml inj IV STA (03:08)
[2020-07-12] MEDS: heparin 25,000 UNIT/250ml bag 250 ML IV SCH (03:17)
[2020-07-12] MEDS ORDERED: CefTRIAXone 2gm/D5W 50ml BAG 50 ML IV ONE (03:30)
[2020-07-12] MEDS ORDERED: HYDROcodone/acetaminophen 5mg/325mg tablet PO PRN (03:35)
[2020-07-12] MEDS ORDERED: potassium Cl 40MEQ/1/2NS 520ml 520 ML IV PRN ×2 (03:35)
[2020-07-12] MEDS ORDERED: ondansetron/PF 4mg/2ml inj IV PRN (03:35)
[2020-07-12] MEDS ORDERED: magnesium Cl slow-release 64mg tablet PO PRN (03:35)
[2020-07-12] MEDS ORDERED: mag hydrox/Alum hydrox/simeth 30ml oral suspension PO PRN (03:35)
[2020-07-12] MEDS ORDERED: magnesium 2GM in 50ml NS 50 ML IV PRN (03:35)
[2020-07-12] MEDS ORDERED: magnesium 4gm in 100ml NS 100 ML IV PRN (03:35)
[2020-07-12] MEDS ORDERED: acetaminophen 325mg tablet PO PRN (03:35)
[2020-07-12] MEDS ORDERED: magnesium hydroxide 30ml (MOM) UD suspension PO PRN (03:35)
[2020-07-12] MEDS ORDERED: potassium Cl 20 mEq SR tablet PO PRN ×2 (03:35)
[2020-07-12] MEDS ORDERED: MESSAGE TO PHARMACY PO ONE (05:25)
[2020-07-12] MEDS ORDERED: glucagon, human recombinant 1mg kit SUBCUT PRN (05:25)
[2020-07-12] MEDS ORDERED: dextrose ORAL solution 15 GM/59 ML bottle PO PRN ×2 (05:25)
[2020-07-12] MEDS ORDERED: dextrose 50%-water 50ml dispensing syringe IV PRN ×2 (05:25)
[2020-07-12] MEDS: K and/or MAG REPLACEMENT MC SCH ×2 (08:00→20:00)
--- NOTE | 2020-07-12 08:43 | NUR ---
JAZZY IS PHYSICIAN 07/12
[2020-07-12] MEDS: azithromycin/NS 500mg/250ml 250 ML IV SCH (08:46)
[2020-07-12] MEDS: predniSONE 20 mg tablet PO SCH (08:46)
[2020-07-12] MEDS: heparin 10,000 units/1 ML INJ IV PRN ×2 (10:29→17:21)
--- NOTE | 2020-07-12 15:33 | NUR ---
Patient in room ED 5. I have received report from BREANNA Duncan and had the opportunity to ask questions and awaiting pt's arrival from ED.
[2020-07-12 15:37] VITALS: BP 122/79
--- NOTE | 2020-07-12 15:37 | NUR ---
Patient arrived from ED, ambulated from gurney to bed with minimal assistance. Alert and oriented to room. BLL, SRx2, CL within reach, non skid socks on, will continue to frequently round. 2 RN skin check complete, MRSA swab collected, tele monitor on. First set of vitals complete.
--- NOTE | 2020-07-12 16:20 | NUR ---
Paged RT Re Deangelo Caldera Pt came to floor from ED without salter. He's on 15L NC. Can I have an RT set this up please. Thank you. [phone]
[2020-07-12 18:00] VITALS: BP 113/67
--- NOTE | 2020-07-12 18:29 | NUR ---
Problems reprioritized. Patient report given, questions answered & plan of care reviewed with BREANNA Kennedy. All pt needs met at change of shift.
--- NOTE | 2020-07-12 18:31 | NUR ---
Patient in room U 3016. I have received report from BREANNA Chapman and had the opportunity to ask questions and assume patient care. Patient resting in bed, no signs of distress. Safety measures in place, bed in low and locked position. Call light and personal items within reach. Will continue to monitor throughout shift.
[2020-07-12] MEDS: insulin glargine (Lantus) pen - multi-dose SQ SCH (21:00)
--- NOTE | 2020-07-12 21:00 | NUR ---
Patient in room PCU 3016. I have received report from BREANNA Eckert and had the opportunity to ask questions and assume patient care. Patient brought up on gurney, no signs of distress. Transferred self to bed. Belongings stayed with patient. Safety measures in place, bed in low and locked position. Call light and personal items within reach. Will continue to monitor.
[2020-07-12 22:00] VITALS: BP 99/66
[2020-07-13] MEDS: heparin 25,000 UNIT/250ml bag 250 ML IV SCH ×3 (00:20→16:04)
[2020-07-13 02:00] VITALS: BP 104/65
[2020-07-13] MEDS: CefTRIAXone/D5W-Rocephin 1gm 50 ML IV SCH (03:15)
--- NOTE | 2020-07-13 06:33 | NUR ---
Patient in room PCU 3016. I have received report from BREANNA Kennedy and had the opportunity to ask questions and assume patient care. Pt sleeping comfortably at change of shift.
[2020-07-13 07:00] VITALS: BP 102/71
[2020-07-13 07:03] LABS: BASOPHILS # (AUTO) 0.1 X10'3 (0-0.2); BASOPHILS % (AUTO) 0.4 % (0-1); EOSINOPHILS # (AUTO) 0.3 X10'3 (0-0.9); EOSINOPHILS % (AUTO) 1.9 % (0-6); HEMATOCRIT 40.2 % (42.0-52.0); LYMPHOCYTES # (AUTO) 2.4 X10'3 (1.1-4.8); LYMPHOCYTES % (AUTO) 17.1 % (21-51); MEAN CORPUSCULAR HEMOGLOBIN 26.1 PG (27.0-31.0); MEAN CORPUSCULAR HGB CONC 32.3 g/dL (33.0-36.5); MEAN CORPUSCULAR VOLUME 80.7 FL (78-98); MEAN PLATELET VOLUME 8.4 FL (7.4-10.4); MONOCYTES # (AUTO) 1.2 X10'3 (0-0.9); MONOCYTES % (AUTO) 8.7 % (2-12); NEUTROPHILS # (AUTO) 9.9 X10'3 (1.8-7.7); NEUTROPHILS % (AUTO) 71.9 % (42-75); PLATELET COUNT 405 X10'3 (140-440); RED BLOOD COUNT 4.98 X10'6 (4.70-6.10); RED CELL DISTRIBUTION WIDTH 16.2 % (11.5-14.5); WHITE BLOOD COUNT 13.8 X10'3 (4.5-11.0)
--- NOTE | 2020-07-13 07:05 | NUR ---
Problems reprioritized. Patient report given, questions answered & plan of care reviewed with BREANNA Chapman. VSS. Medications administered as ordered. Safety measures in place, bed in low and locked position. Call light and personal items within reach. Will continue to monitor throughout shift.
[2020-07-13] MEDS: azithromycin/NS 500mg/250ml 250 ML IV SCH (07:47)
[2020-07-13] MEDS: predniSONE 20 mg tablet PO SCH (07:47)
[2020-07-13] MEDS: heparin 10,000 units/1 ML INJ IV PRN ×2 (07:51→16:01)
[2020-07-13] MEDS: K and/or MAG REPLACEMENT MC SCH ×2 (08:00→20:00)
[2020-07-13 08:01] LABS: ALANINE AMINOTRANSFERASE 16 U/L (12-78); ALBUMIN 2.4 G/DL (3.4-5.0); ALBUMIN/GLOBULIN RATIO 0.7 (1.1-1.5); ALKALINE PHOSPHATASE 83 IU/L (46-116); ANION GAP 7 (8-16); ASPARTATE AMINO TRANSFERASE 17 U/L (10-37); BILIRUBIN,TOTAL 0.3 MG/DL (0.1-1.0); CHLORIDE 100 MMOL/L (99-107); CREATININE 0.75 MG/DL (0.60-1.10); GLUCOSE 95 MG/DL (70-104); POTASSIUM 3.7 MMOL/L (3.5-5.1); SODIUM 141 MMOL/L (135-145); TOTAL CARBON DIOXIDE 34.1 MMOL/L (24-32); TOTAL PROTEIN 5.9 G/DL (6.4-8.2); eGFR > 90 ML/MIN
[2020-07-13 08:20] LABS: BLOOD UREA NITROGEN 22 MG/DL (7-18); BUN/CREATININE RATIO 29.3 (5.4-32.0)
[2020-07-13 11:00] VITALS: BP 93/54
[2020-07-13] MEDS: aspirin 81mg tablet.DR PO SCH (11:42)
[2020-07-13] MEDS: mycophenolate mofetil 250mg capsule PO SCH ×2 (11:43→21:15)
[2020-07-13] MEDS: LORazepam 1 MG tablet PO PRN (13:10)
[2020-07-13 15:00] VITALS: BP 104/63
[2020-07-13] MEDS: gemfibrozil 600mg tablet PO SCH (17:19)
[2020-07-13 18:00] VITALS: BP 96/61
--- NOTE | 2020-07-13 18:29 | NUR ---
Problems reprioritized. Patient report given, questions answered & plan of care reviewed with BREANNA Kennedy. Pt resting comfortably at change of shift. All pt needs met.
[2020-07-13] MEDS: insulin glargine (Lantus) pen - multi-dose SQ SCH (21:00)
[2020-07-13] MEDS: lactobacillus rhamnosus 10,000 MMU CELLS/CAPSULE PO SCH (21:15)
[2020-07-13 22:00] VITALS: BP 100/63
[2020-07-14 02:00] VITALS: BP 99/61
[2020-07-14] MEDS: CefTRIAXone/D5W-Rocephin 1gm 50 ML IV SCH (04:38)
[2020-07-14 05:16] LABS: BASOPHILS # (AUTO) 0.1 X10'3 (0-0.2); BASOPHILS % (AUTO) 0.6 % (0-1); EOSINOPHILS # (AUTO) 0.3 X10'3 (0-0.9); EOSINOPHILS % (AUTO) 2.2 % (0-6); HEMATOCRIT 40.8 % (42.0-52.0); HEMOGLOBIN 13.3 g/dl (14.0-17.9); LYMPHOCYTES # (AUTO) 2.6 X10'3 (1.1-4.8); MEAN CORPUSCULAR HEMOGLOBIN 25.9 PG (27.0-31.0); MEAN CORPUSCULAR HGB CONC 32.5 g/dL (33.0-36.5); MEAN CORPUSCULAR VOLUME 79.8 FL (78-98); MEAN PLATELET VOLUME 8.4 FL (7.4-10.4); MONOCYTES # (AUTO) 0.8 X10'3 (0-0.9); MONOCYTES % (AUTO) 6.3 % (2-12); NEUTROPHILS # (AUTO) 8.7 X10'3 (1.8-7.7); NEUTROPHILS % (AUTO) 69.9 % (42-75); PLATELET COUNT 415 X10'3 (140-440); RED BLOOD COUNT 5.12 X10'6 (4.70-6.10); RED CELL DISTRIBUTION WIDTH 16.4 % (11.5-14.5); WHITE BLOOD COUNT 12.4 X10'3 (4.5-11.0)
[2020-07-14 05:30] LABS: ALANINE AMINOTRANSFERASE 16 U/L (12-78); ALBUMIN 2.5 G/DL (3.4-5.0); ALBUMIN/GLOBULIN RATIO 0.7 (1.1-1.5); ALKALINE PHOSPHATASE 81 IU/L (46-116); ANION GAP 3 (8-16); ASPARTATE AMINO TRANSFERASE 16 U/L (10-37); BILIRUBIN,TOTAL 0.3 MG/DL (0.1-1.0); BLOOD UREA NITROGEN 20 MG/DL (7-18); BUN/CREATININE RATIO 29.9 (5.4-32.0); CALCIUM 9.1 MG/DL (8.5-10.1); CHLORIDE 102 MMOL/L (99-107); CREATININE 0.67 MG/DL (0.60-1.10); GLUCOSE 86 MG/DL (70-104); MAGNESIUM 2.1 MG/DL (1.5-2.4); POTASSIUM 4.1 MMOL/L (3.5-5.1); SODIUM 142 MMOL/L (135-145); TOTAL CARBON DIOXIDE 36.8 MMOL/L (24-32); TOTAL PROTEIN 6.2 G/DL (6.4-8.2); eGFR > 90 ML/MIN
[2020-07-14] MEDS: heparin 10,000 units/1 ML INJ IV PRN (05:56)
--- NOTE | 2020-07-14 06:18 | NUR ---
Patient in room PCU 3016. I have received report from BREANNA Kennedy and had the opportunity to ask questions and assume patient care.
--- NOTE | 2020-07-14 06:44 | NUR ---
Problems reprioritized. Patient report given, questions answered & plan of care reviewed with BREANNA Agrawal. Heparin drip on, running at 2100 units per hour. VSS. Medications administered as ordered. Care plan followed. Safety measures in place, bed in low and locked position. Call light and personal items within reach. Will continue to monitor for remainder of shift.
[2020-07-14 07:00] VITALS: BP 118/83
[2020-07-14] MEDS: HYDROchlorothiazide 25mg tablet PO SCH (07:29)
[2020-07-14] MEDS: multivitamins, therapeutics tablet PO SCH (07:29)
[2020-07-14] MEDS: lactobacillus rhamnosus 10,000 MMU CELLS/CAPSULE PO SCH ×2 (07:29→20:17)
[2020-07-14] MEDS: aspirin 81mg tablet.DR PO SCH (07:29)
[2020-07-14] MEDS: predniSONE 20 mg tablet PO SCH (07:29)
[2020-07-14] MEDS: gemfibrozil 600mg tablet PO SCH ×2 (07:30→17:30)
[2020-07-14] MEDS: mycophenolate mofetil 250mg capsule PO SCH ×2 (07:30→20:17)
[2020-07-14] MEDS: OMEGA-3/DHA/EPA/FISH OIL 1 EACH CAPSULE.DR PO SCH (07:30)
[2020-07-14] MEDS: azithromycin/NS 500mg/250ml 250 ML IV SCH (07:31)
[2020-07-14] MEDS: LORazepam 1 MG tablet PO PRN (07:33)
[2020-07-14] MEDS: K and/or MAG REPLACEMENT MC SCH ×2 (08:00→20:00)
[2020-07-14] MEDS: heparin 25,000 UNIT/250ml bag 250 ML IV SCH ×2 (08:34→21:56)
[2020-07-14 11:00] VITALS: BP_SYST 112; BP_SYST 124; BP_DIAS 70; BP_DIAS 78
--- NOTE | 2020-07-14 12:43 | NUR ---
Cardiac PTT 54 in therapeutic range with no changes per protocol. Will continue to monitor.
--- NOTE | 2020-07-14 14:50 | NUR ---
Patient reports that he does not have diabetes and says he has never been diagnosed with diabetes. When Dr. Johnson in to see patient she was notified and ordered for BG checks once a day. Patient aware.
--- NOTE | 2020-07-14 15:16 | NUR ---
Linda patient's caregiver updated on patient diagnosis and treatment plan with patient's consent.
[2020-07-14 15:49] VITALS: BP 108/80
--- NOTE | 2020-07-14 16:11 | NUR ---
PAGER ID: [phone] MESSAGE: [id number]- Deangelo Caldera- positive MRSA nasal swab- [facility] [address] Dr. Johnson notified of patient's positive MRSA nasal swab.
[2020-07-14 18:00] VITALS: BP 110/73
--- NOTE | 2020-07-14 18:20 | NUR ---
Problems reprioritized. Patient report given, questions answered & plan of care reviewed with BREANNA MONROE.
--- NOTE | 2020-07-14 19:11 | NUR ---
Spoke to MD Lewis about patient result, Gram positive cocci is clusters seen in Aerobic bottle. Hours to detect:62 @ 1912.
[2020-07-14] MEDS: insulin glargine (Lantus) pen - multi-dose SQ SCH (21:00)
[2020-07-15 03:00] VITALS: BP 114/68
[2020-07-15] MEDS: CefTRIAXone/D5W-Rocephin 1gm 50 ML IV SCH (03:00)
--- NOTE | 2020-07-15 06:24 | NUR ---
Patient in room PCU 3016. I have received report from Sd Madden and had the opportunity to ask questions and assume patient care.
--- NOTE | 2020-07-15 06:39 | NUR ---
Report given to Barbie CARLOS, questions answer accordingly, patient left in stable condition, end of shift.
[2020-07-15 07:00] VITALS: BP 91/49
[2020-07-15] MEDS: K and/or MAG REPLACEMENT MC SCH ×2 (08:00→20:00)
[2020-07-15] MEDS: HYDROchlorothiazide 25mg tablet PO SCH (08:00)
[2020-07-15] MEDS: mycophenolate mofetil 250mg capsule PO SCH ×2 (08:00→19:54)
[2020-07-15 08:22] LABS: BASOPHILS # (AUTO) 0.1 X10'3 (0-0.2); BASOPHILS % (AUTO) 0.5 % (0-1); EOSINOPHILS # (AUTO) 0.3 X10'3 (0-0.9); EOSINOPHILS % (AUTO) 3.1 % (0-6); HEMATOCRIT 42.4 % (42.0-52.0); HEMOGLOBIN 13.6 g/dl (14.0-17.9); LYMPHOCYTES # (AUTO) 2.9 X10'3 (1.1-4.8); LYMPHOCYTES % (AUTO) 25.2 % (21-51); MEAN CORPUSCULAR HEMOGLOBIN 25.6 PG (27.0-31.0); MEAN CORPUSCULAR VOLUME 80.1 FL (78-98); MEAN PLATELET VOLUME 8.6 FL (7.4-10.4); MONOCYTES % (AUTO) 8.4 % (2-12); NEUTROPHILS # (AUTO) 7.1 X10'3 (1.8-7.7); NEUTROPHILS % (AUTO) 62.8 % (42-75); PLATELET COUNT 437 X10'3 (140-440); WHITE BLOOD COUNT 11.4 X10'3 (4.5-11.0)
[2020-07-15 08:43] LABS: ALANINE AMINOTRANSFERASE 17 U/L (12-78); ALBUMIN 2.6 G/DL (3.4-5.0); ALBUMIN/GLOBULIN RATIO 0.7 (1.1-1.5); ALKALINE PHOSPHATASE 79 IU/L (46-116); ANION GAP 5 (8-16); ASPARTATE AMINO TRANSFERASE 14 U/L (10-37); BILIRUBIN,TOTAL 0.2 MG/DL (0.1-1.0); BLOOD UREA NITROGEN 17 MG/DL (7-18); CALCIUM 8.9 MG/DL (8.5-10.1); CHLORIDE 101 MMOL/L (99-107); CREATININE 0.68 MG/DL (0.60-1.10); GLUCOSE 145 MG/DL (70-104); POTASSIUM 3.4 MMOL/L (3.5-5.1); SODIUM 142 MMOL/L (135-145); TOTAL CARBON DIOXIDE 36.1 MMOL/L (24-32); TOTAL PROTEIN 6.2 G/DL (6.4-8.2); eGFR > 90 ML/MIN
[2020-07-15] MEDS: gemfibrozil 600mg tablet PO SCH ×2 (09:44→16:23)
[2020-07-15] MEDS: lactobacillus rhamnosus 10,000 MMU CELLS/CAPSULE PO SCH ×2 (09:44→19:55)
[2020-07-15] MEDS: aspirin 81mg tablet.DR PO SCH (09:44)
[2020-07-15] MEDS: OMEGA-3/DHA/EPA/FISH OIL 1 EACH CAPSULE.DR PO SCH (09:45)
[2020-07-15] MEDS: multivitamins, therapeutics tablet PO SCH (09:46)
[2020-07-15] MEDS: predniSONE 20 mg tablet PO SCH (09:46)
[2020-07-15] MEDS: azithromycin 250mg tablet PO SCH (09:46)
[2020-07-15 11:00] VITALS: BP 99/62
[2020-07-15 15:00] VITALS: BP 116/76
[2020-07-15] MEDS: LORazepam 1 MG tablet PO PRN (15:25)
[2020-07-15 18:00] VITALS: BP 98/52
--- NOTE | 2020-07-15 18:42 | NUR ---
Problems reprioritized. Patient report given, questions answered & plan of care reviewed with Sd CARLOS.
[2020-07-15] MEDS: insulin glargine (Lantus) pen - multi-dose SQ SCH (20:00)
[2020-07-15] MEDS: heparin 25,000 UNIT/250ml bag 250 ML IV SCH (23:12)
[2020-07-16] MEDS: CefTRIAXone/D5W-Rocephin 1gm 50 ML IV SCH (03:33)
--- NOTE | 2020-07-16 06:24 | NUR ---
Patient in room PCU 3016. I have received report from Mathew CARLOS and had the opportunity to ask questions and assume patient care. Patient is resting in bed no signs of distress.
[2020-07-16 07:00] VITALS: BP 114/79
--- NOTE | 2020-07-16 07:57 | NUR ---
promotional table spacer PAGER ID: [phone] MESSAGE: Emilee 0582nVerenice, Pt has been on heparin gtt for 4 days, no cardiology consult, do you want continue gtt. Please advise. Francisca [phone]
[2020-07-16] MEDS: K and/or MAG REPLACEMENT MC SCH ×2 (08:00→20:00)
[2020-07-16] MEDS: predniSONE 20 mg tablet PO SCH (08:27)
[2020-07-16] MEDS: lactobacillus rhamnosus 10,000 MMU CELLS/CAPSULE PO SCH ×2 (08:27→19:51)
[2020-07-16] MEDS: OMEGA-3/DHA/EPA/FISH OIL 1 EACH CAPSULE.DR PO SCH (08:27)
[2020-07-16] MEDS: azithromycin 250mg tablet PO SCH (08:27)
[2020-07-16] MEDS: aspirin 81mg tablet.DR PO SCH (08:27)
[2020-07-16] MEDS: multivitamins, therapeutics tablet PO SCH (08:27)
[2020-07-16] MEDS: gemfibrozil 600mg tablet PO SCH ×2 (08:27→17:49)
[2020-07-16] MEDS: HYDROchlorothiazide 25mg tablet PO SCH (08:27)
[2020-07-16 08:28] LABS: BASOPHILS # (AUTO) 0.1 X10'3 (0-0.2); BASOPHILS % (AUTO) 0.5 % (0-1); EOSINOPHILS # (AUTO) 0.4 X10'3 (0-0.9); EOSINOPHILS % (AUTO) 2.6 % (0-6); HEMATOCRIT 46.6 % (42.0-52.0); HEMOGLOBIN 15.3 g/dl (14.0-17.9); LYMPHOCYTES # (AUTO) 3.4 X10'3 (1.1-4.8); LYMPHOCYTES % (AUTO) 22.7 % (21-51); MEAN CORPUSCULAR HEMOGLOBIN 26.7 PG (27.0-31.0); MEAN CORPUSCULAR HGB CONC 32.8 g/dL (33.0-36.5); MEAN CORPUSCULAR VOLUME 81.2 FL (78-98); MEAN PLATELET VOLUME 8.7 FL (7.4-10.4); MONOCYTES # (AUTO) 1.2 X10'3 (0-0.9); MONOCYTES % (AUTO) 7.8 % (2-12); NEUTROPHILS # (AUTO) 9.9 X10'3 (1.8-7.7); NEUTROPHILS % (AUTO) 66.4 % (42-75); PLATELET COUNT 459 X10'3 (140-440); RED BLOOD COUNT 5.74 X10'6 (4.70-6.10); RED CELL DISTRIBUTION WIDTH 16.2 % (11.5-14.5); WHITE BLOOD COUNT 14.9 X10'3 (4.5-11.0)
[2020-07-16] MEDS: mycophenolate mofetil 250mg capsule PO SCH ×2 (08:28→19:52)
[2020-07-16 09:02] LABS: BILIRUBIN,TOTAL 0.4 MG/DL (0.1-1.0); BLOOD UREA NITROGEN 17 MG/DL (7-18); BUN/CREATININE RATIO 26.6 (5.4-32.0); CHLORIDE 99 MMOL/L (99-107); CREATININE 0.64 MG/DL (0.60-1.10); GLUCOSE 78 MG/DL (70-104); POTASSIUM 4.3 MMOL/L (3.5-5.1); SODIUM 139 MMOL/L (135-145); eGFR > 90 ML/MIN
[2020-07-16 09:08] LABS: ALANINE AMINOTRANSFERASE 18 U/L (12-78); ALBUMIN/GLOBULIN RATIO 0.8 (1.1-1.5); ALKALINE PHOSPHATASE 86 IU/L (46-116); ASPARTATE AMINO TRANSFERASE 16 U/L (10-37); MAGNESIUM 2.1 MG/DL (1.5-2.4); TOTAL CARBON DIOXIDE 34.7 MMOL/L (24-32); TOTAL PROTEIN 6.9 G/DL (6.4-8.2)
[2020-07-16 09:25] LABS: ANION GAP 5 (8-16)
[2020-07-16 09:44] LABS: ANISOCYTOSIS 1+; PLATELET ESTIMATE INCREASED; TOTAL CELLS COUNTED 100
[2020-07-16 11:00] VITALS: BP 120/78
--- NOTE | 2020-07-16 12:40 | NUR ---
received verbal orders from Dr. Jimenez to d/c heparin drip and add IS Q1 hour while awake
[2020-07-16] MEDS: insulin Lispro (HumaLOG) vial - multi-dose SQ SCH (14:16)
[2020-07-16 15:00] VITALS: BP 96/75
[2020-07-16] MEDS ORDERED: ipratropium/albuterol 3ml nebule NEB PRN (16:50)
[2020-07-16] MEDS: vancomycin/NS 1 GM ADD-VANTAGE 250 ML IV SCH (17:50)
[2020-07-16 18:00] VITALS: BP 119/78
--- NOTE | 2020-07-16 18:21 | NUR ---
Problems reprioritized. Patient report given, questions answered & plan of care reviewed with Mathew CARLOS.
[2020-07-16] MEDS: ipratropium/albuterol 3ml nebule NEB SCH ×2 (19:42→23:24)
[2020-07-16] MEDS: insulin glargine (Lantus) pen - multi-dose SQ SCH (21:16)
[2020-07-17] MEDS: CefTRIAXone/D5W-Rocephin 1gm 50 ML IV SCH (03:00)
[2020-07-17] MEDS: vancomycin/NS 1 GM ADD-VANTAGE 250 ML IV SCH ×2 (04:54→17:25)
--- NOTE | 2020-07-17 06:06 | NUR ---
Problems reprioritized. Patient report given, questions answered & plan of care reviewed with Shilpi CARLOS.
[2020-07-17 06:17] LABS: BASOPHILS # (AUTO) 0.1 X10'3 (0-0.2); BASOPHILS % (AUTO) 0.4 % (0-1); EOSINOPHILS # (AUTO) 0.5 X10'3 (0-0.9); EOSINOPHILS % (AUTO) 3.5 % (0-6); HEMATOCRIT 46.4 % (42.0-52.0); LYMPHOCYTES # (AUTO) 3.3 X10'3 (1.1-4.8); LYMPHOCYTES % (AUTO) 23.6 % (21-51); MEAN CORPUSCULAR HEMOGLOBIN 26.2 PG (27.0-31.0); MEAN CORPUSCULAR HGB CONC 32.4 g/dL (33.0-36.5); MEAN CORPUSCULAR VOLUME 80.9 FL (78-98); MEAN PLATELET VOLUME 8.2 FL (7.4-10.4); MONOCYTES % (AUTO) 7.3 % (2-12); NEUTROPHILS % (AUTO) 65.2 % (42-75); PLATELET COUNT 415 X10'3 (140-440); RED BLOOD COUNT 5.74 X10'6 (4.70-6.10); RED CELL DISTRIBUTION WIDTH 16.2 % (11.5-14.5); WHITE BLOOD COUNT 13.8 X10'3 (4.5-11.0)
[2020-07-17 06:43] LABS: ALANINE AMINOTRANSFERASE 29 U/L (12-78); ALBUMIN 2.9 G/DL (3.4-5.0); ALBUMIN/GLOBULIN RATIO 0.8 (1.1-1.5); ALKALINE PHOSPHATASE 82 IU/L (46-116); ANION GAP 3 (8-16); ASPARTATE AMINO TRANSFERASE 16 U/L (10-37); BILIRUBIN,TOTAL 0.4 MG/DL (0.1-1.0); BLOOD UREA NITROGEN 17 MG/DL (7-18); BUN/CREATININE RATIO 22.4 (5.4-32.0); CALCIUM 9.7 MG/DL (8.5-10.1); CHLORIDE 99 MMOL/L (99-107); CREATININE 0.76 MG/DL (0.60-1.10); GLUCOSE 81 MG/DL (70-104); MAGNESIUM 2.1 MG/DL (1.5-2.4); SODIUM 138 MMOL/L (135-145); TOTAL CARBON DIOXIDE 35.9 MMOL/L (24-32); TOTAL PROTEIN 6.7 G/DL (6.4-8.2); eGFR > 90 ML/MIN
[2020-07-17 07:00] VITALS: BP 108/65
[2020-07-17 07:02] LABS: ANISOCYTOSIS 1+; LARGE PLATELETS FEW; PLATELET ESTIMATE NORMAL; TOTAL CELLS COUNTED 100
[2020-07-17] MEDS: ipratropium/albuterol 3ml nebule NEB SCH ×5 (07:14→22:58)
[2020-07-17] MEDS: K and/or MAG REPLACEMENT MC SCH ×2 (08:00→20:16)
[2020-07-17] MEDS: gemfibrozil 600mg tablet PO SCH ×2 (08:33→17:25)
[2020-07-17] MEDS: lactobacillus rhamnosus 10,000 MMU CELLS/CAPSULE PO SCH ×2 (08:34→20:12)
[2020-07-17] MEDS: azithromycin 250mg tablet PO SCH (08:34)
[2020-07-17] MEDS: HYDROchlorothiazide 25mg tablet PO SCH (08:34)
[2020-07-17] MEDS: predniSONE 20 mg tablet PO SCH (08:34)
[2020-07-17] MEDS: mycophenolate mofetil 250mg capsule PO SCH ×2 (08:34→20:14)
[2020-07-17] MEDS: OMEGA-3/DHA/EPA/FISH OIL 1 EACH CAPSULE.DR PO SCH (08:34)
[2020-07-17] MEDS: multivitamins, therapeutics tablet PO SCH (08:34)
[2020-07-17] MEDS: aspirin 81mg tablet.DR PO SCH (08:34)
[2020-07-17] MEDS: insulin Lispro (HumaLOG) vial - multi-dose SQ SCH ×2 (08:45→13:20)
--- NOTE | 2020-07-17 10:11 | NUR ---
Initial: Pt admit with acute and chronic respiratory failure with hypoxia and NSTEMI. Pt on a CHO controlled diet documented with slightly fluctuating PO intake with average 75-100% PO intake meeting estimated nutrient needs. BG range 77-281 mg/dL though A1c ia 5.9%, not diabetes per [place] [employer]. Noted that pt with Prednisone on home med list and receiving during admission, this is likely the cause for elevated BG levels. Pt on hyperglycemic protocol. Recommend diet advancement to regular given current A1c and BG levels fairly well controlled throughout admit. [facility] 07/15. Will continue to follow and monitor need for nutrition intervention. Recommendations: 1) Advance to regular diet in view of A1c 5.9% and BG levels fairly well controlled during admit; receiving steroids on hyperglycemic protocol 2) Routine bowel care 3) Scaled weights per rx Addendum: 07/17/20 at [address] Amended: Links added.
[2020-07-17 11:00] VITALS: BP 98/71
[2020-07-17 15:00] VITALS: BP 107/75
[2020-07-17] MEDS: LORazepam 1 MG tablet PO PRN (17:27)
--- NOTE | 2020-07-17 18:21 | NUR ---
Problems reprioritized. Patient report given, questions answered & plan of care reviewed with Sd CARLOS. Patient alert, oriented, and appropriate at this time.
[2020-07-17] MEDS: insulin glargine (Lantus) pen - multi-dose SQ SCH (21:00)
[2020-07-18] MEDS: CefTRIAXone/D5W-Rocephin 1gm 50 ML IV SCH (02:43)
[2020-07-18] MEDS ORDERED: VANCOMYCIN LEVEL IV ONE (04:30)
[2020-07-18 04:50] LABS: VANCOMYCIN,TROUGH 5.3 UG/ML (6.0-14.0)
[2020-07-18] MEDS: vancomycin/NS 1 GM ADD-VANTAGE 250 ML IV SCH (05:51)
[2020-07-18 06:00] VITALS: BP 131/78
--- NOTE | 2020-07-18 06:15 | NUR ---
Patient in room PCU 3016. I have received report from Mathew CARLOS and had the opportunity to ask questions and assume patient care.
--- NOTE | 2020-07-18 06:25 | NUR ---
Problems reprioritized. Patient report given, questions answered & plan of care reviewed with Vel CARLOS. Patient alert, oriented, and appropriate at this time.
[2020-07-18] MEDS: ipratropium/albuterol 3ml nebule NEB SCH ×5 (07:04→23:18)
[2020-07-18] MEDS: K and/or MAG REPLACEMENT MC SCH ×2 (08:00→19:04)
[2020-07-18] MEDS: predniSONE 20 mg tablet PO SCH (09:16)
[2020-07-18] MEDS: multivitamins, therapeutics tablet PO SCH (09:16)
[2020-07-18] MEDS: aspirin 81mg tablet.DR PO SCH (09:16)
[2020-07-18] MEDS: LORazepam 1 MG tablet PO PRN ×2 (09:16→19:01)
[2020-07-18] MEDS: azithromycin 250mg tablet PO SCH (09:16)
[2020-07-18] MEDS: OMEGA-3/DHA/EPA/FISH OIL 1 EACH CAPSULE.DR PO SCH (09:16)
[2020-07-18] MEDS: HYDROchlorothiazide 25mg tablet PO SCH (09:16)
[2020-07-18] MEDS: lactobacillus rhamnosus 10,000 MMU CELLS/CAPSULE PO SCH ×2 (09:17→19:01)
[2020-07-18] MEDS: gemfibrozil 600mg tablet PO SCH ×2 (09:17→17:27)
[2020-07-18] MEDS: mycophenolate mofetil 250mg capsule PO SCH ×2 (09:18→19:02)
[2020-07-18] MEDS: insulin Lispro (HumaLOG) vial - multi-dose SQ SCH ×3 (09:46→18:59)
[2020-07-18 11:00] VITALS: BP 95/57
[2020-07-18 12:30] LABS: ABG BASE EXCESS 8.6 mmol/L (-2.0-2.0); ABG HCO3 34.7 mmol/L (22.0-26.0); ABG OXYGEN SATURATION 88.3 % (94-97); ABG PCO2 (T) 52.2 mmHg (35.0-48.0); ABG PO2 (T) 51.9 mmHg (75.0-100.0); ALLEN'S TEST POSITIVE; FLOW 8 L/min; FMetHb 0.1 % (0.0-1.5); FO2Hb 87.3 % (94-97); TOTAL HEMOGLOBIN 16.1 G/dl (14.0-18.0)
--- NOTE | 2020-07-18 12:37 | NUR ---
promotional table spacer PAGER ID: [phone] MESSAGE: Re: Deangelo Caldera. Room: 3016B. ABG results posted. RT recommends increasing O2. -[facility] #[id number] -Dr. Jimenez paged concerning ABG results.
[2020-07-18 13:55] LABS: BASOPHILS # (AUTO) 0.1 X10'3 (0-0.2); BASOPHILS % (AUTO) 0.7 % (0-1); EOSINOPHILS # (AUTO) 0.3 X10'3 (0-0.9); EOSINOPHILS % (AUTO) 2.1 % (0-6); HEMATOCRIT 47.3 % (42.0-52.0); HEMOGLOBIN 15.5 g/dl (14.0-17.9); LYMPHOCYTES # (AUTO) 1.2 X10'3 (1.1-4.8); MEAN CORPUSCULAR HEMOGLOBIN 26.3 PG (27.0-31.0); MEAN CORPUSCULAR HGB CONC 32.9 g/dL (33.0-36.5); MEAN CORPUSCULAR VOLUME 80.1 FL (78-98); MEAN PLATELET VOLUME 8.4 FL (7.4-10.4); MONOCYTES # (AUTO) 0.4 X10'3 (0-0.9); NEUTROPHILS # (AUTO) 10.3 X10'3 (1.8-7.7); NEUTROPHILS % (AUTO) 84.2 % (42-75); PLATELET COUNT 490 X10'3 (140-440); RED CELL DISTRIBUTION WIDTH 16.3 % (11.5-14.5); WHITE BLOOD COUNT 12.2 X10'3 (4.5-11.0)
[2020-07-18] MEDS ORDERED: vancomycin/NS 1 GM ADD-VANTAGE 250 ML IV SCH (14:00)
[2020-07-18 14:13] LABS: ALANINE AMINOTRANSFERASE 29 U/L (12-78); ALBUMIN 3.2 G/DL (3.4-5.0); ALBUMIN/GLOBULIN RATIO 0.9 (1.1-1.5); ALKALINE PHOSPHATASE 89 IU/L (46-116); ANION GAP 3 (8-16); ASPARTATE AMINO TRANSFERASE 18 U/L (10-37); BILIRUBIN,TOTAL 0.5 MG/DL (0.1-1.0); BLOOD UREA NITROGEN 21 MG/DL (7-18); BUN/CREATININE RATIO 22.6 (5.4-32.0); CALCIUM 9.2 MG/DL (8.5-10.1); CHLORIDE 98 MMOL/L (99-107); CREATININE 0.93 MG/DL (0.60-1.10); GLUCOSE 177 MG/DL (70-104); POTASSIUM 4.9 MMOL/L (3.5-5.1); SODIUM 137 MMOL/L (135-145); TOTAL CARBON DIOXIDE 35.9 MMOL/L (24-32); TOTAL PROTEIN 6.8 G/DL (6.4-8.2); eGFR 83 ML/MIN
[2020-07-18 14:17] LABS: ANISOCYTOSIS 1+; PLATELET ESTIMATE INCREASED; TOTAL CELLS COUNTED 100
[2020-07-18 14:18] LABS: GIANT PLATELET FEW; LARGE PLATELETS FEW
[2020-07-18 15:00] VITALS: BP 114/84
[2020-07-18 18:00] VITALS: BP 106/70
--- NOTE | 2020-07-18 18:05 | NUR ---
Problems reprioritized. Patient report given, questions answered & plan of care reviewed with Emmy CARLOS.
[2020-07-18] MEDS: insulin glargine (Lantus) pen - multi-dose SQ SCH (20:47)
[2020-07-18 22:00] VITALS: BP 100/68
[2020-07-19 02:00] VITALS: BP 100/68
[2020-07-19] MEDS: CefTRIAXone/D5W-Rocephin 1gm 50 ML IV SCH (02:38)
[2020-07-19] MEDS ORDERED: VANCOMYCIN LEVEL IV ONE (05:30)
[2020-07-19 06:00] VITALS: BP 115/69
--- NOTE | 2020-07-19 06:10 | NUR ---
Report given to Vel CARLOS.
--- NOTE | 2020-07-19 06:20 | NUR ---
Patient in room PCU 3016. I have received report from Emmy CARLOS and had the opportunity to ask questions and assume patient care.
[2020-07-19] MEDS: ipratropium/albuterol 3ml nebule NEB SCH ×2 (07:23→11:24)
[2020-07-19 07:37] LABS: ALANINE AMINOTRANSFERASE 24 U/L (12-78); ALBUMIN 2.9 G/DL (3.4-5.0); ALBUMIN/GLOBULIN RATIO 0.8 (1.1-1.5); ALKALINE PHOSPHATASE 80 IU/L (46-116); ANION GAP 8 (8-16); ASPARTATE AMINO TRANSFERASE 11 U/L (10-37); BILIRUBIN,TOTAL 0.2 MG/DL (0.1-1.0); BLOOD UREA NITROGEN 24 MG/DL (7-18); BUN/CREATININE RATIO 35.8 (5.4-32.0); CHLORIDE 100 MMOL/L (99-107); CREATININE 0.67 MG/DL (0.60-1.10); GLUCOSE 84 MG/DL (70-104); MAGNESIUM 2.2 MG/DL (1.5-2.4); POTASSIUM 3.5 MMOL/L (3.5-5.1); SODIUM 139 MMOL/L (135-145); TOTAL CARBON DIOXIDE 30.9 MMOL/L (24-32); TOTAL PROTEIN 6.4 G/DL (6.4-8.2); eGFR > 90 ML/MIN
[2020-07-19] MEDS: K and/or MAG REPLACEMENT MC SCH (08:00)
[2020-07-19] MEDS: OMEGA-3/DHA/EPA/FISH OIL 1 EACH CAPSULE.DR PO SCH (08:54)
[2020-07-19] MEDS: lactobacillus rhamnosus 10,000 MMU CELLS/CAPSULE PO SCH (08:55)
[2020-07-19] MEDS: aspirin 81mg tablet.DR PO SCH (08:55)
[2020-07-19] MEDS: azithromycin 250mg tablet PO SCH (08:55)
[2020-07-19] MEDS: predniSONE 20 mg tablet PO SCH (08:56)
[2020-07-19] MEDS: gemfibrozil 600mg tablet PO SCH (08:56)
[2020-07-19] MEDS: multivitamins, therapeutics tablet PO SCH (08:56)
[2020-07-19] MEDS: HYDROchlorothiazide 25mg tablet PO SCH (08:56)
[2020-07-19] MEDS: mycophenolate mofetil 250mg capsule PO SCH (08:56)
[2020-07-19] MEDS: LORazepam 1 MG tablet PO PRN (09:00)
[2020-07-19] MEDS ORDERED: AZI25OT PO (10:00)
[2020-07-19] MEDS ORDERED: PRED20TA PO (10:00)
--- NOTE | 2020-07-19 11:50 | NUR ---
Pt DC'd home with brother. IV's removed, canulas intact. Tele-box removed and returned to tele-tech. Pt alert and oriented and vitals WNL upon DC. Per Dr. Adhikari; Pt is stable for DC. DC paperwork printed out and gone over with Pt. Allowed Pt to ask questions concerning DC and then answered them. New prescriptions called into [facility] pharmacy in [place]. Home health will call Pt to set up appts. Pt stated that he will call and make follow up appt with his PCP at [place] [facility]. Pt will also get referral from PCP for local knowledge management advisor. Pt will also be having trilogy installed at home. Pt's belongings gathered and sent with Pt. Pt wheeled down to lobby in wheelchair. pt left in private vehicle with brother for home with his own home O2.
== END 2020-07-19 11:51 | disposition home or self-care (01) | DRG 193 ==
LOC: ER 01:30 → ED HOLD 03:33 → PCU 3S 15:44
PROVIDERS: ADMIT Family Medicine; ATTEND Internal Medicine
PROC: 5A0945A Assistance with Respiratory Ventilation, 24-96 Consecutive Hours, High Flow/Velocity Cannula (ICD-10-PCS; principal; 2020-07-12)
PROC: B32T1ZZ Computerized Tomography (CT Scan) of Left Pulmonary Artery using Low Osmolar Contrast (ICD-10-PCS; 2020-07-12)
PROC: B3201ZZ Computerized Tomography (CT Scan) of Thoracic Aorta using Low Osmolar Contrast (ICD-10-PCS; 2020-07-12)
PROC: B32S1ZZ Computerized Tomography (CT Scan) of Right Pulmonary Artery using Low Osmolar Contrast (ICD-10-PCS; 2020-07-12)
DX: J18.9 Pneumonia, unspecified organism (principal); I21.A1 Myocardial infarction type 2; J96.21 Acute and chronic respiratory failure with hypoxia; J96.22 Acute and chronic respiratory failure with hypercapnia; J44.0 Chronic obstructive pulmonary disease with (acute) lower respiratory infection; J44.1 Chronic obstructive pulmonary disease with (acute) exacerbation; E11.65 Type 2 diabetes mellitus with hyperglycemia; E78.5 Hyperlipidemia, unspecified; E07.9 Disorder of thyroid, unspecified; I10 Essential (primary) hypertension; J84.10 Pulmonary fibrosis, unspecified; Z20.822 Contact with and (suspected) exposure to COVID-19; Z87.891 Personal history of nicotine dependence; Z79.899 Other long term (current) drug therapy
CPT/HCPCS: 36415; 36600; 71045; 71275; 74177; 80053; 80202; 82728; 82803; 82948; 83605; 83615; 83735; 83880; 84145; 84443; 84484; 85007; 85018; 85025; 85379; 85384; 85730; 86140; 87040; 87077; 87081; 87186; 87635; 93005; 94640; 94760; 94799; 96365; 96375; 96376; 97110; 97161; 97530; 99291; C9803; G0378; J0456; J0696; J1100; J1644; J1815; J3370; J7512; J7517; Q9967

== ENCOUNTER 2020-08-01 18:15 | Inpatient (IN) | payer BC ==
[~2020-08-01] VITALS: Ht 167.6 cm; Wt 81.8 kg
[~2020-08-01 18:15] MED LIST changes: +AZI25OT PO; -IPRA3AMP9 NEB; -LEVO750T46 PO
[2020-08-01] MEDS ORDERED: methylPREDNISolone sod succ 125mg/2ml vial IV ONE (18:25)
[2020-08-01] MEDS ORDERED: albuterol 2.5 MG/3 ML nebule CONTNEB PRN (18:25)
--- NOTE | 2020-08-01 18:30 | NUR ---
patient started on a bipap per Dr. Martínez,solumedrol given per saeed.
[2020-08-01] MEDS ORDERED: vancomycin/NS 1 GM ADD-VANTAGE 250 ML IV ONE (18:35)
[2020-08-01] MEDS ORDERED: piperacillin/tazo 3.375gm/50ml 50 ML IV ONE (18:35)
[2020-08-01 18:44] LABS: BASOPHILS # (AUTO) 0.2 X10'3 (0-0.2); BASOPHILS % (AUTO) 0.9 % (0-1); EOSINOPHILS # (AUTO) 0.9 X10'3 (0-0.9); EOSINOPHILS % (AUTO) 5.6 % (0-6); HEMATOCRIT 51.7 % (42.0-52.0); LYMPHOCYTES # (AUTO) 2.3 X10'3 (1.1-4.8); MEAN CORPUSCULAR HEMOGLOBIN 26.7 PG (27.0-31.0); MEAN CORPUSCULAR HGB CONC 32.8 g/dL (33.0-36.5); MEAN CORPUSCULAR VOLUME 81.4 FL (78-98); MEAN PLATELET VOLUME 8.7 FL (7.4-10.4); MONOCYTES # (AUTO) 1.1 X10'3 (0-0.9); MONOCYTES % (AUTO) 6.9 % (2-12); NEUTROPHILS % (AUTO) 72.6 % (42-75); PLATELET COUNT 401 X10'3 (140-440); RED BLOOD COUNT 6.35 X10'6 (4.70-6.10); RED CELL DISTRIBUTION WIDTH 17.1 % (11.5-14.5); WHITE BLOOD COUNT 16.6 X10'3 (4.5-11.0)
[2020-08-01 18:53] LABS: ABG BASE EXCESS -0.5 mmol/L (-2.0-2.0); ABG HCO3 25.5 mmol/L (22.0-26.0); ABG PCO2 (T) 46.4 mmHg (35.0-48.0); ABG PO2 (T) 151.1 mmHg (75.0-100.0); ALLEN'S TEST POSITIVE; FCOHb 1.7 % (0.0-3.9); FMetHb 0.2 % (0.0-1.5); FO2Hb 97.1 % (94-97); TOTAL HEMOGLOBIN 17.2 G/dl (14.0-18.0)
[2020-08-01 18:54] LABS: D-DIMER 0.38 MG/L FEU (0-0.50); PARTIAL THROMBOPLASTIN TIME 27 SECONDS (22-32)
[2020-08-01 18:57] LABS: ALANINE AMINOTRANSFERASE 22 U/L (12-78); ALBUMIN 3.5 G/DL (3.4-5.0); ALBUMIN/GLOBULIN RATIO 0.8 (1.1-1.5); ALKALINE PHOSPHATASE 103 IU/L (46-116); ANION GAP 6 (8-16); ASPARTATE AMINO TRANSFERASE 23 U/L (10-37); BILIRUBIN,TOTAL 0.5 MG/DL (0.1-1.0); BLOOD UREA NITROGEN 15 MG/DL (7-18); CALCIUM 9.4 MG/DL (8.5-10.1); CHLORIDE 100 MMOL/L (99-107); GLUCOSE 139 MG/DL (70-104); POTASSIUM 3.8 MMOL/L (3.5-5.1); SODIUM 139 MMOL/L (135-145); TOTAL CARBON DIOXIDE 32.6 MMOL/L (24-32); TOTAL PROTEIN 7.8 G/DL (6.4-8.2); eGFR 76 ML/MIN
--- NOTE | 2020-08-01 19:15 | NUR ---
SON GILBERTO CALLED ([phone]) PER REQUEST OF DR. VALENCIA TO GET LIST OF MEDS. HE REPORTS PT ONLY TAKES ASPRIN, METFORMIN, AND JANUVIA. PT IS SEEN [facility] BY RICHA. PIV IN PLACE, PT GETTINIG OUT OF BED INTERMITTENTLY AND WANDERING IN THE ROOM AND IN THE HALLWAY. AMBULATES WITH STEADY GAIT. REDIRECTABLE.
--- NOTE | 2020-08-01 19:15 | NUR ---
Note undone in EDM - 08/01/20 at 1928 by LINDA NOBLE GILBERTO CALLED ([phone]) PER REQUEST OF DR. VALENCIA TO GET LIST OF MEDS. HE REPORTS PT ONLY TAKES ASPRIN, METFORMIN, AND JANUVIA. PT IS SEEN [facility] BY RICHA. PIV IN PLACE, PT GETTINIG OUT OF BED INTERMITTENTLY AND WANDERING IN THE ROOM AND IN THE HALLWAY. AMBULATES WITH STEADY GAIT. REDIRECTABLE.
[2020-08-01] MEDS ORDERED: furosemide 20 MG/2 ML vial IV ONE (20:00)
--- NOTE | 2020-08-01 20:36 | NUR ---
JEANNE ([facility]) # [phone]
--- NOTE | 2020-08-01 20:37 | NUR ---
Denia ALLEN, AUTOMOTIVE SERVICE PORTER, AT BEDSIDE FOR ADMISSION TO [employer]PER[employer]OR [employer]PE[employer]ICE. PT REMAINS ON BIPAP, IPAP 16, EPAP 6, 80%FIO2, RR34, HR 126, OTHERWISE VSS.
--- NOTE | 2020-08-01 20:49 | NUR ---
PT USING URINAL IN THE BED (VOIDING 550 CC'S CLEAR YELLOW URINE), BEGAN HOLLERINIG OUT FOR HELP. HIS BIPAP TUBING HAD UNHOOKED AND HE REPORTED HE COULDN'T BREATHE. RNS IMMEDIATELY AT BEDSIDE AND REHOOKED TUBING AND STAYED WITH PT AND HELPED TO CALM HIM. SATS DID NOT DROP. PT THANKFUL TO STAFF FOR PROMPT ASSISTANCE AND NOW CALMER.
--- NOTE | 2020-08-01 21:11 | NUR ---
PT IS HUNGRY AND THIRSTY AND DIRECTOR POWER ALEJANDRO AWARE, BUT REPORTS TO PT HE IS CANNOT COME OFF THE BIPAP AT ALL AT THIS TIME.
[2020-08-01] MEDS ORDERED: PARO10TA4 PO (21:16)
--- NOTE | 2020-08-01 21:18 | NUR ---
Per orion rider, pt ok to have a few ice chips intermittently. Given warm blankets, med rec completed. pt with rr 30 and hr 123. awaiting ipa.
[2020-08-01] MEDS ORDERED: magnesium hydroxide 30ml (MOM) UD suspension PO PRN (21:35)
[2020-08-01] MEDS ORDERED: proCHLORperazine 10 MG/2 ml inj IV PRN (21:35)
[2020-08-01] MEDS ORDERED: potassium Cl 20 mEq SR tablet PO PRN (21:35)
[2020-08-01] MEDS ORDERED: ondansetron/PF 4mg/2ml inj IV PRN (21:35)
[2020-08-01] MEDS ORDERED: potassium Cl 40MEQ/1/2NS 520ml 520 ML IV PRN ×2 (21:35)
[2020-08-01] MEDS ORDERED: acetaminophen 325mg tablet PO PRN ×2 (21:35)
[2020-08-01] MEDS ORDERED: albuterol 2.5 MG/3 ML nebule NEB PRN (21:35)
[2020-08-01] MEDS ORDERED: [UNRECOGNIZED DRUG - OTHER] IV ONE (22:25)
[2020-08-01] MEDS ORDERED: SODIUM CHLORIDE IV ONE (22:25)
[2020-08-01] MEDS ORDERED: VANCOMYCIN IV ONE (22:25)
--- NOTE | 2020-08-01 22:51 | NUR ---
J ALEJANDRO NOTIFIED THAT PTS 3 HR TROP 0.13. PT CURRENTLY CALM AND APPEARS TO BE SLEEPING. RR AROUND 30 MIN. HR 115. IPA 2009
[2020-08-01] MEDS: normal saline 1000ml 1,000 ML IV SCH (23:12)
[2020-08-01] MEDS: morphine 2 MG/ML inj. syringe IV PRN (23:15)
--- NOTE | 2020-08-01 23:20 | NUR ---
Patient arrived to CICU by panchito with Bi-pap on 19/12. He is A&O and saturating in the 90's. Covid neg. Tachycardic and tachypneic. Will hang Vanco and give Cellcept (home med for pulmonary fibrosis) that came up with him from ER. Will continue to monitor closely.
[2020-08-01] MEDS: mycophenolate mofetil 250mg capsule PO SCH (23:49)
[2020-08-01] MEDS: methylPREDNISolone sod succ 125mg/2ml vial IV SCH (23:51)
[2020-08-02] VITALS (23 sets, daily range): BP systolic 94–126; BP diastolic 59–91
[2020-08-02] MEDS: ipratropium/albuterol 3ml nebule NEB SCH ×7 (00:12→23:47)
[2020-08-02 01:37] LABS: BASOPHILS % (AUTO) 0.4 % (0-1); EOSINOPHILS # (AUTO) 0.1 X10'3 (0-0.9); EOSINOPHILS % (AUTO) 0.5 % (0-6); HEMATOCRIT 46.6 % (42.0-52.0); HEMOGLOBIN 15.4 g/dl (14.0-17.9); LYMPHOCYTES # (AUTO) 0.6 X10'3 (1.1-4.8); LYMPHOCYTES % (AUTO) 5.9 % (21-51); MEAN CORPUSCULAR HEMOGLOBIN 26.6 PG (27.0-31.0); MEAN CORPUSCULAR VOLUME 80.5 FL (78-98); MEAN PLATELET VOLUME 8.8 FL (7.4-10.4); MONOCYTES # (AUTO) 0.1 X10'3 (0-0.9); MONOCYTES % (AUTO) 0.7 % (2-12); NEUTROPHILS # (AUTO) 9.9 X10'3 (1.8-7.7); NEUTROPHILS % (AUTO) 92.5 % (42-75); PLATELET COUNT 326 X10'3 (140-440); RED BLOOD COUNT 5.79 X10'6 (4.70-6.10); RED CELL DISTRIBUTION WIDTH 17.1 % (11.5-14.5); WHITE BLOOD COUNT 10.7 X10'3 (4.5-11.0)
[2020-08-02 01:55] LABS: ALANINE AMINOTRANSFERASE 20 U/L (12-78); ALBUMIN 3.1 G/DL (3.4-5.0); ALBUMIN/GLOBULIN RATIO 0.8 (1.1-1.5); ALKALINE PHOSPHATASE 87 IU/L (46-116); ANION GAP 7 (8-16); ASPARTATE AMINO TRANSFERASE 18 U/L (10-37); BILIRUBIN,TOTAL 0.7 MG/DL (0.1-1.0); CHLORIDE 102 MMOL/L (99-107); CREATININE 0.94 MG/DL (0.60-1.10); GLUCOSE 232 MG/DL (70-104); MAGNESIUM 1.9 MG/DL (1.5-2.4); PHOSPHORUS 3.9 MG/DL (2.3-4.5); POTASSIUM 3.7 MMOL/L (3.5-5.1); SODIUM 139 MMOL/L (135-145); TOTAL CARBON DIOXIDE 30.4 MMOL/L (24-32); TOTAL PROTEIN 6.8 G/DL (6.4-8.2); eGFR 82 ML/MIN
[2020-08-02 02:21] LABS: BLOOD UREA NITROGEN 16 MG/DL (7-18)
[2020-08-02] MEDS: piperacillin/tazo 3.375gm/50ml 50 ML IV SCH ×3 (02:23→16:08)
--- NOTE | 2020-08-02 06:10 | NUR ---
Problems reprioritized. Patient report given, questions answered & plan of care reviewed with Demetria CARLOS.
[2020-08-02] MEDS: PARoxetine 10mg tablet PO SCH (07:21)
[2020-08-02] MEDS: aspirin 81mg tab.chew PO SCH (07:21)
[2020-08-02] MEDS: multivitamins, therapeutics tablet PO SCH (07:21)
[2020-08-02] MEDS: HYDROchlorothiazide 25mg tablet PO SCH (07:22)
[2020-08-02] MEDS: OMEGA-3/DHA/EPA/FISH OIL 1 EACH CAPSULE.DR PO SCH (07:23)
[2020-08-02] MEDS: gemfibrozil 600mg tablet PO SCH ×2 (07:23→16:08)
[2020-08-02] MEDS: pantoprazole 40 MG vial IV SCH (07:24)
[2020-08-02] MEDS: furosemide 40mg/4ml inj IV SCH (07:24)
[2020-08-02] MEDS: methylPREDNISolone sod succ 125mg/2ml vial IV SCH ×2 (07:25→16:08)
[2020-08-02] MEDS: enoxaparin 40mg/0.4ml syringe SUBCUT SCH (07:25)
[2020-08-02] MEDS: docusate sod 100mg capsule PO SCH ×2 (07:47→20:00)
[2020-08-02] MEDS: mycophenolate mofetil 250mg capsule PO SCH ×2 (08:44→20:20)
[2020-08-02] MEDS ORDERED: mycophenolate mofetil 250mg capsule PO ONE (09:50)
[2020-08-02] MEDS ORDERED: glucagon, human recombinant 1mg kit SUBCUT PRN (11:00)
[2020-08-02] MEDS ORDERED: dextrose 50%-water 50ml dispensing syringe IV PRN ×2 (11:00)
[2020-08-02] MEDS ORDERED: insulin regular, human U-100 3ml vial - multi-dose SQ SCH (11:00)
[2020-08-02] MEDS ORDERED: dextrose ORAL solution 15 GM/59 ML bottle PO PRN ×2 (11:00)
--- NOTE | 2020-08-02 11:16 | NUR ---
Pt admit DX pulmonary fibrosis, COPD exacerbation, and acute respiratory failure w/ hypoxia per EMR. Currently bipap dependent requesting food in ER not and okay to advance to full liquids w/ ONS per MD today. [facility] recommends ensure enlive TIDWM; MD notified. To provide full initial assessment at above date. Addendum: 08/02/20 at [address] Amended: Links added.
[2020-08-02] MEDS: vancomycin/NS 1 GM ADD-VANTAGE 250 ML IV SCH (12:18)
[2020-08-02] MEDS: lactose-reduced food (Ensure Enlive) - 237ml bottle PO SCH ×2 (13:00→18:00)
[2020-08-02] MEDS: insulin Lispro (HumaLOG) vial - multi-dose SQ SCH ×2 (14:31→20:38)
[2020-08-02] MEDS: normal saline 1000ml 1,000 ML IV SCH (16:09)
--- NOTE | 2020-08-02 18:15 | NUR ---
Patient in room ICU 2046. I have received report from Demetria CARLOS and had the opportunity to ask questions and assume patient care. Patient is doing well on HF NC @ 15L - he's eating and upset that he is on a full liquid diet. He's very hungry.
--- NOTE | 2020-08-02 18:39 | NUR ---
Problems reprioritized. Patient report given, questions answered & plan of care reviewed with shift coordinator RN.
[2020-08-02] MEDS: LORazepam 2 mg/ml vial IV PRN (20:19)
[2020-08-02] MEDS: lactobacillus rhamnosus 10,000 MMU CELLS/CAPSULE PO SCH (20:19)
[2020-08-02] MEDS: insulin glargine (Lantus) pen - multi-dose SQ SCH (20:39)
[2020-08-03] VITALS (24 sets, daily range): BP systolic 95–136; BP diastolic 47–87
[2020-08-03] MEDS: methylPREDNISolone sod succ 125mg/2ml vial IV SCH ×3 (01:35→15:36)
[2020-08-03] MEDS: piperacillin/tazo 3.375gm/50ml 50 ML IV SCH ×3 (01:35→15:36)
[2020-08-03] MEDS: vancomycin/NS 1 GM ADD-VANTAGE 250 ML IV SCH ×3 (01:35→23:00)
[2020-08-03] MEDS: ipratropium/albuterol 3ml nebule NEB SCH ×6 (03:53→23:32)
[2020-08-03 06:12] LABS: BASOPHILS % (AUTO) 0.1 % (0-1); EOSINOPHILS % (AUTO) 0 % (0-6); HEMATOCRIT 43.4 % (42.0-52.0); LYMPHOCYTES # (AUTO) 0.7 X10'3 (1.1-4.8); LYMPHOCYTES % (AUTO) 4.1 % (21-51); MEAN CORPUSCULAR HEMOGLOBIN 26.1 PG (27.0-31.0); MEAN CORPUSCULAR HGB CONC 32.3 g/dL (33.0-36.5); MEAN CORPUSCULAR VOLUME 80.8 FL (78-98); MEAN PLATELET VOLUME 8.7 FL (7.4-10.4); MONOCYTES # (AUTO) 0.3 X10'3 (0-0.9); MONOCYTES % (AUTO) 1.7 % (2-12); NEUTROPHILS # (AUTO) 15.2 X10'3 (1.8-7.7); NEUTROPHILS % (AUTO) 94.1 % (42-75); PLATELET COUNT 317 X10'3 (140-440); RED BLOOD COUNT 5.37 X10'6 (4.70-6.10); RED CELL DISTRIBUTION WIDTH 16.9 % (11.5-14.5); WHITE BLOOD COUNT 16.2 X10'3 (4.5-11.0)
--- NOTE | 2020-08-03 06:30 | NUR ---
Patient in room ICU 2046. I have received report from RN and had the opportunity to ask questions and assume patient care.
[2020-08-03 06:31] LABS: ALANINE AMINOTRANSFERASE 15 U/L (12-78); ALBUMIN 2.8 G/DL (3.4-5.0); ALBUMIN/GLOBULIN RATIO 0.8 (1.1-1.5); ALKALINE PHOSPHATASE 70 IU/L (46-116); ANION GAP 2 (8-16); ASPARTATE AMINO TRANSFERASE 10 U/L (10-37); BILIRUBIN,TOTAL 0.5 MG/DL (0.1-1.0); BLOOD UREA NITROGEN 21 MG/DL (7-18); BUN/CREATININE RATIO 29.2 (5.4-32.0); CALCIUM 8.7 MG/DL (8.5-10.1); CHLORIDE 99 MMOL/L (99-107); CREATININE 0.72 MG/DL (0.60-1.10); GLUCOSE 117 MG/DL (70-104); PHOSPHORUS 4.7 MG/DL (2.3-4.5); POTASSIUM 3.9 MMOL/L (3.5-5.1); SODIUM 139 MMOL/L (135-145); TOTAL PROTEIN 6.2 G/DL (6.4-8.2); eGFR > 90 ML/MIN
--- NOTE | 2020-08-03 06:44 | NUR ---
Problems reprioritized. Patient report given, questions answered & plan of care reviewed with Anna Raza RN.
[2020-08-03] MEDS: lactose-reduced food (Ensure Enlive) - 237ml bottle PO SCH (08:00)
[2020-08-03] MEDS: pantoprazole 40 MG vial IV SCH (08:00)
[2020-08-03] MEDS: docusate sod 100mg capsule PO SCH ×2 (08:32→20:01)
[2020-08-03] MEDS: furosemide 40mg/4ml inj IV SCH (08:32)
[2020-08-03] MEDS: enoxaparin 40mg/0.4ml syringe SUBCUT SCH (08:32)
[2020-08-03] MEDS: PARoxetine 10mg tablet PO SCH (08:32)
[2020-08-03] MEDS: lactobacillus rhamnosus 10,000 MMU CELLS/CAPSULE PO SCH ×2 (08:32→20:01)
[2020-08-03] MEDS: multivitamins, therapeutics tablet PO SCH (08:32)
[2020-08-03] MEDS: OMEGA-3/DHA/EPA/FISH OIL 1 EACH CAPSULE.DR PO SCH (08:32)
[2020-08-03] MEDS: aspirin 81mg tab.chew PO SCH (08:33)
[2020-08-03] MEDS: HYDROchlorothiazide 25mg tablet PO SCH (08:33)
[2020-08-03] MEDS: mycophenolate mofetil 250mg capsule PO SCH ×2 (08:35→20:04)
[2020-08-03] MEDS: gemfibrozil 600mg tablet PO SCH ×2 (08:37→15:36)
[2020-08-03] MEDS: insulin Lispro (HumaLOG) vial - multi-dose SQ SCH ×3 (09:38→18:55)
--- NOTE | 2020-08-03 11:15 | NUR ---
DM consult: Pt with A1c 6.7%, DM education not warranted at this time. Will continue to follow. Addendum: 08/03/20 at [address] Amended: Links added.
[2020-08-03] MEDS: LORazepam 2 mg/ml vial IV PRN ×2 (14:17→18:41)
--- NOTE | 2020-08-03 18:26 | NUR ---
Patient in room ICU 2046. I have received report from Therese CARLOS and had the opportunity to ask questions and assume patient care.
--- NOTE | 2020-08-03 21:00 | NUR ---
Interm dry, non productive cough noted, on high flow O2 at 15L/NC. Pt desats to low 80s. When assisted to high fowlers and allowed to drink a sml amt of H2O, resp recovery within 2-3 minutes occurs, sats in low 90s. Placed on PRN BiPap, FiO2 of 50, when resp recovery is delayed.
[2020-08-03] MEDS: insulin glargine (Lantus) pen - multi-dose SQ SCH (21:27)
[2020-08-03] MEDS ORDERED: VANCOMYCIN LEVEL IV ONE (22:30)
[2020-08-03] MEDS: morphine 2 MG/ML inj. syringe IV PRN (23:01)
[2020-08-04] VITALS (24 sets, daily range): BP systolic 98–130; BP diastolic 65–90
[2020-08-04] MEDS: methylPREDNISolone sod succ 125mg/2ml vial IV SCH ×4 (00:39→23:37)
[2020-08-04] MEDS: piperacillin/tazo 3.375gm/50ml 50 ML IV SCH ×4 (01:06→23:37)
[2020-08-04] MEDS: ipratropium/albuterol 3ml nebule NEB SCH ×6 (04:08→23:39)
[2020-08-04 06:22] LABS: BASOPHILS % (AUTO) 0.2 % (0-1); EOSINOPHILS % (AUTO) 0 % (0-6); HEMATOCRIT 42.6 % (42.0-52.0); HEMOGLOBIN 13.6 g/dl (14.0-17.9); LYMPHOCYTES # (AUTO) 0.8 X10'3 (1.1-4.8); MEAN CORPUSCULAR VOLUME 81.3 FL (78-98); MEAN PLATELET VOLUME 8.8 FL (7.4-10.4); MONOCYTES # (AUTO) 0.4 X10'3 (0-0.9); MONOCYTES % (AUTO) 2.4 % (2-12); NEUTROPHILS # (AUTO) 13.8 X10'3 (1.8-7.7); NEUTROPHILS % (AUTO) 92.4 % (42-75); PLATELET COUNT 298 X10'3 (140-440); RED BLOOD COUNT 5.24 X10'6 (4.70-6.10); RED CELL DISTRIBUTION WIDTH 16.4 % (11.5-14.5)
--- NOTE | 2020-08-04 06:38 | NUR ---
Problems reprioritized. Patient report given, questions answered & plan of care reviewed with Joby CARLOS.
[2020-08-04 06:42] LABS: ALANINE AMINOTRANSFERASE 16 U/L (12-78); ALBUMIN 2.8 G/DL (3.4-5.0); ALBUMIN/GLOBULIN RATIO 0.8 (1.1-1.5); ALKALINE PHOSPHATASE 69 IU/L (46-116); ANION GAP 0 (8-16); ASPARTATE AMINO TRANSFERASE 7 U/L (10-37); BILIRUBIN,TOTAL 0.5 MG/DL (0.1-1.0); BLOOD UREA NITROGEN 28 MG/DL (7-18); BUN/CREATININE RATIO 33.3 (5.4-32.0); CALCIUM 8.9 MG/DL (8.5-10.1); CHLORIDE 96 MMOL/L (99-107); CREATININE 0.84 MG/DL (0.60-1.10); GLUCOSE 158 MG/DL (70-104); PHOSPHORUS 3.8 MG/DL (2.3-4.5); POTASSIUM 4.1 MMOL/L (3.5-5.1); SODIUM 136 MMOL/L (135-145); TOTAL PROTEIN 6.1 G/DL (6.4-8.2); eGFR > 90 ML/MIN
[2020-08-04 06:43] LABS: TOTAL CARBON DIOXIDE 40.2 MMOL/L (24-32)
[2020-08-04] MEDS: lactose-reduced food (Ensure Enlive) - 237ml bottle PO SCH ×5 (08:00→18:10)
[2020-08-04] MEDS: HYDROchlorothiazide 25mg tablet PO SCH (08:11)
[2020-08-04] MEDS: multivitamins, therapeutics tablet PO SCH (08:11)
[2020-08-04] MEDS: lactobacillus rhamnosus 10,000 MMU CELLS/CAPSULE PO SCH ×2 (08:11→19:03)
[2020-08-04] MEDS: furosemide 40mg/4ml inj IV SCH (08:11)
[2020-08-04] MEDS: aspirin 81mg tab.chew PO SCH (08:11)
[2020-08-04] MEDS: pantoprazole 40 MG vial IV SCH (08:11)
[2020-08-04] MEDS: OMEGA-3/DHA/EPA/FISH OIL 1 EACH CAPSULE.DR PO SCH (08:11)
[2020-08-04] MEDS: mycophenolate mofetil 250mg capsule PO SCH ×2 (08:11→19:04)
[2020-08-04] MEDS: PARoxetine 10mg tablet PO SCH (08:11)
[2020-08-04] MEDS: docusate sod 100mg capsule PO SCH ×2 (08:11→19:04)
[2020-08-04] MEDS: gemfibrozil 600mg tablet PO SCH ×2 (08:13→17:42)
[2020-08-04] MEDS: enoxaparin 40mg/0.4ml syringe SUBCUT SCH (08:13)
[2020-08-04] MEDS: insulin Lispro (HumaLOG) vial - multi-dose SQ SCH ×3 (08:38→17:57)
--- NOTE | 2020-08-04 10:43 | NUR ---
Per dietary pt requesting additional food for satiety. Pt on a heart healthy CHO controlled diet documented with 75-100% PO intake of meals and ONS TID. RD recommends double eggs q breakfast and double meat BIDLD. ONS may no longer be warranted if pt continues with good PO intake of meals. Will continue to follow. Addendum: 08/04/20 at [address] Amended: Links added.
[2020-08-04] MEDS: VANCOmycin 1250MG/NS 250ml Bag 250 ML IV SCH ×2 (13:08→22:09)
--- NOTE | 2020-08-04 18:00 | NUR ---
Patient in room ICU 2046. I have received report from Joby CARLOS and had the opportunity to ask questions and assume patient care.
[2020-08-04] MEDS: LORazepam 2 mg/ml vial IV PRN (19:03)
[2020-08-04] MEDS: insulin glargine (Lantus) pen - multi-dose SQ SCH (20:33)
[2020-08-05] VITALS (24 sets, daily range): BP systolic 97–120; BP diastolic 38–84
[2020-08-05] MEDS: LORazepam 2 mg/ml vial IV PRN ×5 (03:01→21:05)
[2020-08-05] MEDS: ipratropium/albuterol 3ml nebule NEB SCH ×6 (04:22→23:26)
--- NOTE | 2020-08-05 06:24 | NUR ---
Problems reprioritized. Patient report given, questions answered & plan of care reviewed with Leopoldo CARLOS.
--- NOTE | 2020-08-05 06:30 | NUR ---
Patient in room ICU 2046. I have received report and had the opportunity to ask questions and assume patient care.
[2020-08-05 06:37] LABS: ALANINE AMINOTRANSFERASE 13 U/L (12-78); ALBUMIN 2.8 G/DL (3.4-5.0); ALBUMIN/GLOBULIN RATIO 0.9 (1.1-1.5); ALKALINE PHOSPHATASE 62 IU/L (46-116); ANION GAP 0 (8-16); ASPARTATE AMINO TRANSFERASE 6 U/L (10-37); BASOPHILS % (AUTO) 0 % (0-1); BILIRUBIN,TOTAL 0.5 MG/DL (0.1-1.0); BLOOD UREA NITROGEN 27 MG/DL (7-18); BUN/CREATININE RATIO 41.5 (5.4-32.0); CALCIUM 8.8 MG/DL (8.5-10.1); CHLORIDE 95 MMOL/L (99-107); CREATININE 0.65 MG/DL (0.60-1.10); EOSINOPHILS % (AUTO) 0 % (0-6); GLUCOSE 148 MG/DL (70-104); HEMATOCRIT 42.3 % (42.0-52.0); HEMOGLOBIN 13.8 g/dl (14.0-17.9); LYMPHOCYTES # (AUTO) 0.8 X10'3 (1.1-4.8); LYMPHOCYTES % (AUTO) 6.2 % (21-51); MAGNESIUM 2.1 MG/DL (1.5-2.4); MEAN CORPUSCULAR HEMOGLOBIN 26.3 PG (27.0-31.0); MEAN CORPUSCULAR HGB CONC 32.7 g/dL (33.0-36.5); MEAN CORPUSCULAR VOLUME 80.5 FL (78-98); MEAN PLATELET VOLUME 8.8 FL (7.4-10.4); MONOCYTES # (AUTO) 0.6 X10'3 (0-0.9); MONOCYTES % (AUTO) 4.7 % (2-12); NEUTROPHILS # (AUTO) 10.8 X10'3 (1.8-7.7); NEUTROPHILS % (AUTO) 89.1 % (42-75); PHOSPHORUS 3.7 MG/DL (2.3-4.5); PLATELET COUNT 273 X10'3 (140-440); POTASSIUM 3.8 MMOL/L (3.5-5.1); RED BLOOD COUNT 5.26 X10'6 (4.70-6.10); RED CELL DISTRIBUTION WIDTH 16.8 % (11.5-14.5); SODIUM 136 MMOL/L (135-145); WHITE BLOOD COUNT 12.1 X10'3 (4.5-11.0); eGFR > 90 ML/MIN
[2020-08-05 06:39] LABS: TOTAL CARBON DIOXIDE 40.9 MMOL/L (24-32)
[2020-08-05] MEDS: aspirin 81mg tab.chew PO SCH (07:30)
[2020-08-05] MEDS: PARoxetine 10mg tablet PO SCH (07:30)
[2020-08-05] MEDS: OMEGA-3/DHA/EPA/FISH OIL 1 EACH CAPSULE.DR PO SCH (07:30)
[2020-08-05] MEDS: docusate sod 100mg capsule PO SCH ×2 (07:31→19:03)
[2020-08-05] MEDS: mycophenolate mofetil 250mg capsule PO SCH ×2 (07:31→19:04)
[2020-08-05] MEDS: lactobacillus rhamnosus 10,000 MMU CELLS/CAPSULE PO SCH ×2 (07:31→19:03)
[2020-08-05] MEDS: HYDROchlorothiazide 25mg tablet PO SCH (07:31)
[2020-08-05] MEDS: furosemide 40mg/4ml inj IV SCH (07:31)
[2020-08-05] MEDS: pantoprazole 40 MG vial IV SCH (07:31)
[2020-08-05] MEDS: multivitamins, therapeutics tablet PO SCH (07:31)
[2020-08-05] MEDS: gemfibrozil 600mg tablet PO SCH ×2 (07:31→16:51)
[2020-08-05] MEDS: methylPREDNISolone sod succ 125mg/2ml vial IV SCH (07:32)
[2020-08-05] MEDS: enoxaparin 40mg/0.4ml syringe SUBCUT SCH (07:32)
[2020-08-05] MEDS: piperacillin/tazo 3.375gm/50ml 50 ML IV SCH ×2 (07:32→16:51)
[2020-08-05] MEDS: lactose-reduced food (Ensure Enlive) - 237ml bottle PO SCH ×3 (07:55→18:06)
[2020-08-05] MEDS: insulin Lispro (HumaLOG) vial - multi-dose SQ SCH ×3 (08:47→21:18)
--- NOTE | 2020-08-05 10:50 | NUR ---
Initial: Pt admit DX pulmonary fibrosis, acute on chronic respiratory failure w/ hypoxia, PNA, and COPD exacerbation per EMR. Pt PO almost all 100% avg carb controlled/heart healthy meals including double proteins TIDWM as well as ensure enlives TIDWM meeting needs. May benefit from stopping ensure enlives given meeting needs w/ PO if MD agreeable. LBM 08/04 receiving routine colace. No nutrition concerns at this time. Will continue to monitor. Rec: 1. continue carb controlled/heart healthy diet per MD 2. ensure enlive TIDWM per MD; consider stopping given good PO if MD agreeable 3. routine bowel care 4. weekly wts Addendum: 08/05/20 at [address] Amended: Links added.
[2020-08-05] MEDS: VANCOmycin 1250MG/NS 250ml Bag 250 ML IV SCH ×2 (12:02→23:16)
--- NOTE | 2020-08-05 18:09 | NUR ---
Patient in room ICU 2046. I have received report from Leopoldo CARLOS and had the opportunity to ask questions and assume patient care.
[2020-08-05] MEDS: methylPREDNISolone sod succ/PF 40mg inj. IV SCH (19:06)
[2020-08-05] MEDS: insulin glargine (Lantus) pen - multi-dose SQ SCH (21:17)
[2020-08-05] MEDS ORDERED: VANCOMYCIN LEVEL IV ONE (22:30)
[2020-08-06] VITALS (25 sets, daily range): BP systolic 94–136; BP diastolic 60–86
[2020-08-06] MEDS: piperacillin/tazo 3.375gm/50ml 50 ML IV SCH ×3 (00:53→17:53)
[2020-08-06] MEDS: LORazepam 2 mg/ml vial IV PRN ×3 (01:52→19:16)
[2020-08-06] MEDS: ipratropium/albuterol 3ml nebule NEB SCH ×6 (03:40→23:31)
--- NOTE | 2020-08-06 06:09 | NUR ---
Problems reprioritized. Patient report given, questions answered & plan of care reviewed with Leopoldo CARLOS.
--- NOTE | 2020-08-06 06:30 | NUR ---
Problems reprioritized. Patient report given, questions answered & plan of care reviewed.
[2020-08-06 06:31] LABS: BASOPHILS % (AUTO) 0.1 % (0-1); EOSINOPHILS # (AUTO) 0.1 X10'3 (0-0.9); EOSINOPHILS % (AUTO) 0.8 % (0-6); HEMATOCRIT 40.9 % (42.0-52.0); HEMOGLOBIN 13.8 g/dl (14.0-17.9); LYMPHOCYTES # (AUTO) 1.9 X10'3 (1.1-4.8); LYMPHOCYTES % (AUTO) 18.5 % (21-51); MEAN CORPUSCULAR HEMOGLOBIN 26.8 PG (27.0-31.0); MEAN CORPUSCULAR HGB CONC 33.7 g/dL (33.0-36.5); MEAN CORPUSCULAR VOLUME 79.4 FL (78-98); MEAN PLATELET VOLUME 8.7 FL (7.4-10.4); MONOCYTES # (AUTO) 0.9 X10'3 (0-0.9); MONOCYTES % (AUTO) 8.9 % (2-12); NEUTROPHILS # (AUTO) 7.4 X10'3 (1.8-7.7); NEUTROPHILS % (AUTO) 71.7 % (42-75); PLATELET COUNT 256 X10'3 (140-440); RED BLOOD COUNT 5.15 X10'6 (4.70-6.10); RED CELL DISTRIBUTION WIDTH 16.5 % (11.5-14.5); WHITE BLOOD COUNT 10.4 X10'3 (4.5-11.0)
[2020-08-06 06:39] LABS: ALANINE AMINOTRANSFERASE 14 U/L (12-78); ALBUMIN 2.8 G/DL (3.4-5.0); ALBUMIN/GLOBULIN RATIO 0.9 (1.1-1.5); ALKALINE PHOSPHATASE 61 IU/L (46-116); ASPARTATE AMINO TRANSFERASE 10 U/L (10-37); BILIRUBIN,TOTAL 0.5 MG/DL (0.1-1.0); BLOOD UREA NITROGEN 25 MG/DL (7-18); BUN/CREATININE RATIO 36.8 (5.4-32.0); CALCIUM 8.8 MG/DL (8.5-10.1); CHLORIDE 95 MMOL/L (99-107); CREATININE 0.68 MG/DL (0.60-1.10); GLUCOSE 96 MG/DL (70-104); MAGNESIUM 2.1 MG/DL (1.5-2.4); PHOSPHORUS 3.3 MG/DL (2.3-4.5); POTASSIUM 3.7 MMOL/L (3.5-5.1); SODIUM 136 MMOL/L (135-145); TOTAL PROTEIN 5.9 G/DL (6.4-8.2); eGFR > 90 ML/MIN
[2020-08-06 07:04] LABS: ANION GAP -4 (8-16)
[2020-08-06 07:10] LABS: TOTAL CARBON DIOXIDE 45.2 MMOL/L (24-32)
[2020-08-06] MEDS: methylPREDNISolone sod succ/PF 40mg inj. IV SCH ×2 (07:19→19:16)
[2020-08-06] MEDS: pantoprazole 40 MG vial IV SCH (07:19)
[2020-08-06] MEDS: enoxaparin 40mg/0.4ml syringe SUBCUT SCH (07:19)
[2020-08-06] MEDS: docusate sod 100mg capsule PO SCH ×2 (07:20→19:16)
[2020-08-06] MEDS: multivitamins, therapeutics tablet PO SCH (07:20)
[2020-08-06] MEDS: lactobacillus rhamnosus 10,000 MMU CELLS/CAPSULE PO SCH (07:20)
[2020-08-06] MEDS: furosemide 40mg/4ml inj IV SCH (07:20)
[2020-08-06] MEDS: gemfibrozil 600mg tablet PO SCH ×2 (07:20→16:44)
[2020-08-06] MEDS: mycophenolate mofetil 250mg capsule PO SCH ×2 (07:20→19:17)
[2020-08-06] MEDS: aspirin 81mg tab.chew PO SCH (07:20)
[2020-08-06] MEDS: OMEGA-3/DHA/EPA/FISH OIL 1 EACH CAPSULE.DR PO SCH (07:20)
[2020-08-06] MEDS: PARoxetine 10mg tablet PO SCH (07:20)
[2020-08-06] MEDS: lactose-reduced food (Ensure Enlive) - 237ml bottle PO SCH (08:00)
[2020-08-06] MEDS: insulin Lispro (HumaLOG) vial - multi-dose SQ SCH ×3 (09:05→19:15)
--- NOTE | 2020-08-06 11:04 | NUR ---
F/u 2: Pt requesting additional food w/ meals PO 100% carb controlled/heart healthy meals w/ double proteins TIDWM as well as ensure enlive TIDWM exceeding protein/kcal needs at this time. Pt seen by [facility] and is agreeable to cottage cheese TIDWM for satiety; [facility] d/w RN regarding cancelling ensure enlive if MD agreeable and recommends ensure high protein TIDWM to minimize carbs. Dietary notified of pt preferences. Noted pt CO2 increasing to 45 today. Will continue to monitor. Rec: 1. continue carb controlled/heart healthy diet per MD; double proteins TIDWM and cottage cheese TIDWM for satiety 2. ensure high protein TIDWM per MD 3. routine bowel care 4. weekly wts Addendum: 08/06/20 at [address] Amended: Links added.
[2020-08-06] MEDS: vancomycin/NS 1 GM ADD-VANTAGE 250 ML IV SCH ×3 (11:19→23:05)
[2020-08-06] MEDS: lactose-reduced food (Ensure High Protein) 237ml bottle PO SCH ×2 (13:00→18:23)
--- NOTE | 2020-08-06 18:10 | NUR ---
Problems reprioritized. Patient report given, questions answered & plan of care reviewed.
[2020-08-06] MEDS: insulin glargine (Lantus) pen - multi-dose SQ SCH (21:17)
[2020-08-07] VITALS (18 sets, daily range): BP systolic 88–125; BP diastolic 53–87
--- NOTE | 2020-08-07 00:07 | NUR ---
Patient in room ICU 2046. I have received report from Leopoldo CARLOS and had the opportunity to ask questions and assume patient care.
[2020-08-07] MEDS: piperacillin/tazo 3.375gm/50ml 50 ML IV SCH ×3 (00:54→19:54)
[2020-08-07] MEDS: ipratropium/albuterol 3ml nebule NEB SCH ×5 (02:59→23:25)
[2020-08-07] MEDS: LORazepam 2 mg/ml vial IV PRN ×3 (06:22→20:19)
--- NOTE | 2020-08-07 06:30 | NUR ---
Patient in room ICU 2046. I have received report and had the opportunity to ask questions and assume patient care.
[2020-08-07] MEDS ORDERED: VANCOMYCIN LEVEL IV ONE (07:30)
[2020-08-07] MEDS: enoxaparin 40mg/0.4ml syringe SUBCUT SCH (07:30)
[2020-08-07] MEDS: aspirin 81mg tab.chew PO SCH (07:31)
[2020-08-07] MEDS: furosemide 40mg/4ml inj IV SCH (07:31)
[2020-08-07] MEDS: methylPREDNISolone sod succ/PF 40mg inj. IV SCH ×2 (07:31→19:53)
[2020-08-07] MEDS: docusate sod 100mg capsule PO SCH ×2 (07:31→19:53)
[2020-08-07] MEDS: multivitamins, therapeutics tablet PO SCH (07:31)
[2020-08-07] MEDS: gemfibrozil 600mg tablet PO SCH ×2 (07:31→17:10)
[2020-08-07] MEDS: OMEGA-3/DHA/EPA/FISH OIL 1 EACH CAPSULE.DR PO SCH (07:31)
[2020-08-07] MEDS: mycophenolate mofetil 250mg capsule PO SCH ×2 (07:32→20:49)
[2020-08-07] MEDS: PARoxetine 10mg tablet PO SCH (07:32)
[2020-08-07] MEDS: pantoprazole 40mg Tablet.DR PO SCH (07:32)
[2020-08-07] MEDS: vancomycin/NS 1 GM ADD-VANTAGE 250 ML IV SCH (07:51)
[2020-08-07] MEDS: lactose-reduced food (Ensure High Protein) 237ml bottle PO SCH ×3 (08:00→18:00)
[2020-08-07 08:02] LABS: BASOPHILS % (AUTO) 0.2 % (0-1); EOSINOPHILS # (AUTO) 0.3 X10'3 (0-0.9); EOSINOPHILS % (AUTO) 3.1 % (0-6); HEMATOCRIT 44.8 % (42.0-52.0); HEMOGLOBIN 14.6 g/dl (14.0-17.9); LYMPHOCYTES # (AUTO) 2.6 X10'3 (1.1-4.8); LYMPHOCYTES % (AUTO) 24.3 % (21-51); MEAN CORPUSCULAR HEMOGLOBIN 26.2 PG (27.0-31.0); MEAN CORPUSCULAR HGB CONC 32.6 g/dL (33.0-36.5); MEAN CORPUSCULAR VOLUME 80.3 FL (78-98); MEAN PLATELET VOLUME 8.5 FL (7.4-10.4); MONOCYTES # (AUTO) 0.8 X10'3 (0-0.9); MONOCYTES % (AUTO) 7.6 % (2-12); NEUTROPHILS # (AUTO) 6.8 X10'3 (1.8-7.7); NEUTROPHILS % (AUTO) 64.8 % (42-75); PLATELET COUNT 264 X10'3 (140-440); RED BLOOD COUNT 5.59 X10'6 (4.70-6.10); RED CELL DISTRIBUTION WIDTH 16.6 % (11.5-14.5); WHITE BLOOD COUNT 10.5 X10'3 (4.5-11.0)
[2020-08-07 08:17] LABS: ALANINE AMINOTRANSFERASE 16 U/L (12-78); ALBUMIN 3.1 G/DL (3.4-5.0); ALKALINE PHOSPHATASE 61 IU/L (46-116); ANION GAP 0 (8-16); ASPARTATE AMINO TRANSFERASE 9 U/L (10-37); BILIRUBIN,TOTAL 0.6 MG/DL (0.1-1.0); BLOOD UREA NITROGEN 27 MG/DL (7-18); CALCIUM 8.8 MG/DL (8.5-10.1); CHLORIDE 96 MMOL/L (99-107); GLUCOSE 78 MG/DL (70-104); MAGNESIUM 2.2 MG/DL (1.5-2.4); PHOSPHORUS 3.5 MG/DL (2.3-4.5); POTASSIUM 3.4 MMOL/L (3.5-5.1); SODIUM 138 MMOL/L (135-145); TOTAL PROTEIN 6.1 G/DL (6.4-8.2); VANCOMYCIN,TROUGH 10.4 UG/ML (6.0-14.0); eGFR > 90 ML/MIN
[2020-08-07 08:20] LABS: TOTAL CARBON DIOXIDE 42.2 MMOL/L (24-32)
[2020-08-07] MEDS: insulin Lispro (HumaLOG) vial - multi-dose SQ SCH ×2 (09:00→13:28)
--- NOTE | 2020-08-07 13:44 | NUR ---
Report called to BREANNA Heredia on PCU Addendum: 08/07/20 at 1345 by Tavo Farmer RN Report called to BREANNA Cantor on PCU
[2020-08-07] MEDS: potassium Cl 20 mEq SR tablet PO PRN ×2 (13:54→20:18)
--- NOTE | 2020-08-07 13:57 | NUR ---
Patient in room ICU 2046. I have received report from Leopoldo CARLOS and had the opportunity to ask questions and assume patient care.
--- NOTE | 2020-08-07 14:15 | NUR ---
Patient arrived from ICU, belongings came with patient and stayed in room, patient on tele with O2 monitoring, VS 98.2, HR 87, RR 24, 89% 10L salter, 105/74, patient comfortable and resting in recliner.
[2020-08-07] MEDS: VANCOmycin 1250MG/NS 250ml Bag 250 ML IV SCH ×2 (15:33→23:40)
--- NOTE | 2020-08-07 17:06 | NUR ---
Vanco and Zosyn not compatible through y site per pharmacy.
--- NOTE | 2020-08-07 18:16 | NUR ---
Problems reprioritized. Patient report given, questions answered & plan of care reviewed with Esperanza CARLOS.
[2020-08-07] MEDS: spironolactone 25 MG tablet PO SCH (19:53)
[2020-08-07] MEDS ORDERED: lactobacillus rhamnosus 10,000 MMU CELLS/CAPSULE PO SCH (20:00)
[2020-08-07] MEDS: insulin glargine (Lantus) pen - multi-dose SQ SCH (20:51)
[2020-08-08] MEDS: potassium Cl 20 mEq SR tablet PO PRN (01:10)
[2020-08-08] MEDS: piperacillin/tazo 3.375gm/50ml 50 ML IV SCH ×3 (01:45→17:01)
[2020-08-08 02:00] VITALS: BP 96/76
[2020-08-08] MEDS: ipratropium/albuterol 3ml nebule NEB SCH ×6 (03:10→23:10)
--- NOTE | 2020-08-08 04:10 | NUR ---
Paged RT. This is BREANNA Mata from [facility]. Pt [id number] Verenice Deangelo has sat of 84 @ 45 FiO2, I bumped it up to 50 then 55. His current sat now is 89% at 55 FIO2.
[2020-08-08] MEDS: LORazepam 2 mg/ml vial IV PRN ×4 (04:34→22:38)
--- NOTE | 2020-08-08 06:25 | NUR ---
Problems reprioritized. Patient report given, questions answered & plan of care reviewed with BREANNA Arizmendi.
[2020-08-08 07:00] VITALS: BP 100/74
[2020-08-08] MEDS: gemfibrozil 600mg tablet PO SCH ×2 (07:53→16:03)
[2020-08-08] MEDS: spironolactone 25 MG tablet PO SCH ×2 (07:55→21:02)
[2020-08-08] MEDS: multivitamins, therapeutics tablet PO SCH (07:56)
[2020-08-08] MEDS: pantoprazole 40mg Tablet.DR PO SCH (07:57)
[2020-08-08] MEDS: aspirin 81mg tab.chew PO SCH (07:57)
[2020-08-08] MEDS: OMEGA-3/DHA/EPA/FISH OIL 1 EACH CAPSULE.DR PO SCH (07:58)
[2020-08-08] MEDS: docusate sod 100mg capsule PO SCH ×2 (08:00→21:01)
[2020-08-08] MEDS: PARoxetine 10mg tablet PO SCH (08:00)
[2020-08-08] MEDS: lactose-reduced food (Ensure High Protein) 237ml bottle PO SCH ×3 (08:00→18:00)
[2020-08-08] MEDS: mycophenolate mofetil 250mg capsule PO SCH ×2 (08:01→21:04)
[2020-08-08 08:02] LABS: BASOPHILS % (AUTO) 0.2 % (0-1); EOSINOPHILS # (AUTO) 0.6 X10'3 (0-0.9); EOSINOPHILS % (AUTO) 4.7 % (0-6); HEMATOCRIT 44.4 % (42.0-52.0); HEMOGLOBIN 14.5 g/dl (14.0-17.9); LYMPHOCYTES # (AUTO) 2.9 X10'3 (1.1-4.8); MEAN CORPUSCULAR HEMOGLOBIN 26.3 PG (27.0-31.0); MEAN CORPUSCULAR HGB CONC 32.6 g/dL (33.0-36.5); MEAN CORPUSCULAR VOLUME 80.7 FL (78-98); MONOCYTES # (AUTO) 1.1 X10'3 (0-0.9); MONOCYTES % (AUTO) 8.1 % (2-12); NEUTROPHILS # (AUTO) 8.6 X10'3 (1.8-7.7); PLATELET COUNT 265 X10'3 (140-440); RED CELL DISTRIBUTION WIDTH 17.1 % (11.5-14.5); WHITE BLOOD COUNT 13.2 X10'3 (4.5-11.0)
[2020-08-08] MEDS: enoxaparin 40mg/0.4ml syringe SUBCUT SCH (08:02)
[2020-08-08] MEDS: methylPREDNISolone sod succ/PF 40mg inj. IV SCH ×2 (08:08→21:01)
[2020-08-08] MEDS: VANCOmycin 1250MG/NS 250ml Bag 250 ML IV SCH ×2 (08:08→16:02)
[2020-08-08 08:14] LABS: ALANINE AMINOTRANSFERASE 12 U/L (12-78); ALBUMIN 2.9 G/DL (3.4-5.0); ALKALINE PHOSPHATASE 55 IU/L (46-116); ANION GAP 1 (8-16); ASPARTATE AMINO TRANSFERASE 14 U/L (10-37); BILIRUBIN,TOTAL 0.5 MG/DL (0.1-1.0); BLOOD UREA NITROGEN 28 MG/DL (7-18); BUN/CREATININE RATIO 51.9 (5.4-32.0); CALCIUM 8.4 MG/DL (8.5-10.1); CHLORIDE 100 MMOL/L (99-107); CREATININE 0.54 MG/DL (0.60-1.10); GLUCOSE 80 MG/DL (70-104); PHOSPHORUS 2.9 MG/DL (2.3-4.5); SODIUM 138 MMOL/L (135-145); TOTAL CARBON DIOXIDE 37.1 MMOL/L (24-32); TOTAL PROTEIN 5.9 G/DL (6.4-8.2); eGFR > 90 ML/MIN
[2020-08-08 11:00] VITALS: BP 115/84
--- NOTE | 2020-08-08 11:57 | NUR ---
I have reviewed and agree with all medications administered and interventions performed by [facility] Student Shari Schwartz. Addendum: 08/08/20 at 1159 by Paula Persaud RT Amended: Links added.
[2020-08-08] MEDS: insulin Lispro (HumaLOG) vial - multi-dose SQ SCH (14:23)
[2020-08-08 15:00] VITALS: BP 118/87
[2020-08-08] MEDS ORDERED: VANCOMYCIN LEVEL IV ONE (15:30)
--- NOTE | 2020-08-08 16:34 | NUR ---
[facility] Ar[facility] (or transfer... thick accent) It Quality Analyst. They are not contracted with [email or web address] and will need authorization for clearance for transfer
[2020-08-08 18:00] VITALS: BP 118/85
--- NOTE | 2020-08-08 18:00 | NUR ---
Patient in room PCU 3012. I have received report from PAUL CARLOS and had the opportunity to ask questions and assume patient care.
--- NOTE | 2020-08-08 18:33 | NUR ---
Problems reprioritized. Patient report given, questions answered & plan of care reviewed with BREANNA Nunes.
[2020-08-08] MEDS ORDERED: lactobacillus rhamnosus 10,000 MMU CELLS/CAPSULE PO SCH (20:00)
[2020-08-08] MEDS: insulin glargine (Lantus) pen - multi-dose SQ SCH (21:14)
[2020-08-08 22:00] VITALS: BP 122/81
[2020-08-09] MEDS: VANCOmycin 1250MG/NS 250ml Bag 250 ML IV SCH ×2 (01:04→08:09)
[2020-08-09] MEDS: piperacillin/tazo 3.375gm/50ml 50 ML IV SCH ×2 (01:11→08:13)
[2020-08-09 02:00] VITALS: BP 118/68
[2020-08-09] MEDS: ipratropium/albuterol 3ml nebule NEB SCH ×6 (04:11→23:02)
[2020-08-09 06:00] VITALS: BP 111/74
--- NOTE | 2020-08-09 06:29 | NUR ---
Problems reprioritized. Patient report given, questions answered & plan of care reviewed with PAUL CARLOS.
[2020-08-09 06:52] LABS: BASOPHILS % (AUTO) 0.4 % (0-1); EOSINOPHILS # (AUTO) 0.3 X10'3 (0-0.9); EOSINOPHILS % (AUTO) 2.2 % (0-6); HEMATOCRIT 43.3 % (42.0-52.0); LYMPHOCYTES # (AUTO) 1.9 X10'3 (1.1-4.8); LYMPHOCYTES % (AUTO) 14.5 % (21-51); MEAN CORPUSCULAR HEMOGLOBIN 26.2 PG (27.0-31.0); MEAN CORPUSCULAR HGB CONC 32.4 g/dL (33.0-36.5); MEAN CORPUSCULAR VOLUME 80.9 FL (78-98); MEAN PLATELET VOLUME 8.8 FL (7.4-10.4); MONOCYTES # (AUTO) 0.8 X10'3 (0-0.9); MONOCYTES % (AUTO) 6.2 % (2-12); NEUTROPHILS # (AUTO) 9.8 X10'3 (1.8-7.7); NEUTROPHILS % (AUTO) 76.7 % (42-75); PLATELET COUNT 297 X10'3 (140-440); RED BLOOD COUNT 5.36 X10'6 (4.70-6.10); RED CELL DISTRIBUTION WIDTH 16.9 % (11.5-14.5); WHITE BLOOD COUNT 12.8 X10'3 (4.5-11.0)
[2020-08-09 07:10] LABS: ALANINE AMINOTRANSFERASE 13 U/L (12-78); ALBUMIN 2.9 G/DL (3.4-5.0); ALKALINE PHOSPHATASE 58 IU/L (46-116); ANION GAP 6 (8-16); ASPARTATE AMINO TRANSFERASE 8 U/L (10-37); BILIRUBIN,TOTAL 0.4 MG/DL (0.1-1.0); BLOOD UREA NITROGEN 27 MG/DL (7-18); BUN/CREATININE RATIO 48.2 (5.4-32.0); CALCIUM 8.5 MG/DL (8.5-10.1); CHLORIDE 101 MMOL/L (99-107); CREATININE 0.56 MG/DL (0.60-1.10); GLUCOSE 102 MG/DL (70-104); PHOSPHORUS 3.3 MG/DL (2.3-4.5); POTASSIUM 4.3 MMOL/L (3.5-5.1); SODIUM 138 MMOL/L (135-145); TOTAL CARBON DIOXIDE 31.5 MMOL/L (24-32); TOTAL PROTEIN 5.9 G/DL (6.4-8.2); eGFR > 90 ML/MIN
[2020-08-09] MEDS: OMEGA-3/DHA/EPA/FISH OIL 1 EACH CAPSULE.DR PO SCH (07:56)
[2020-08-09] MEDS: predniSONE 20 mg tablet PO SCH (07:58)
[2020-08-09] MEDS: spironolactone 25 MG tablet PO SCH ×2 (07:58→19:12)
[2020-08-09] MEDS: gemfibrozil 600mg tablet PO SCH ×2 (07:58→16:35)
[2020-08-09] MEDS: aspirin 81mg tab.chew PO SCH (07:58)
[2020-08-09] MEDS: docusate sod 100mg capsule PO SCH ×2 (07:58→19:13)
[2020-08-09] MEDS: pantoprazole 40mg Tablet.DR PO SCH (07:59)
[2020-08-09] MEDS: PARoxetine 10mg tablet PO SCH (07:59)
[2020-08-09] MEDS: mycophenolate mofetil 250mg capsule PO SCH ×2 (07:59→19:13)
[2020-08-09] MEDS: multivitamins, therapeutics tablet PO SCH (07:59)
[2020-08-09] MEDS: enoxaparin 40mg/0.4ml syringe SUBCUT SCH (08:00)
[2020-08-09] MEDS: lactose-reduced food (Ensure High Protein) 237ml bottle PO SCH ×3 (08:43→18:00)
[2020-08-09] MEDS: LORazepam 2 mg/ml vial IV PRN ×3 (08:47→19:08)
--- NOTE | 2020-08-09 09:41 | NUR ---
Reassessment: Pt continues on heart healthy CHO controlled diet receiving double protein TID and cottage cheese TID with 100% PO intake. Pt receiving Ensure High Protein TID with 75-100% acceptance. Pt exceeding nutrient needs at this time. LBM 2/3, receiving routine bowel care. No further nutrition intervention warranted at this time. Will continue to follow. Rec: 1. Continue carb controlled/heart healthy diet; double protein TIDWM and cottage cheese TIDWM for satiety; consider discontinuing CHO controlled diet given A1c 6.7% and BG levels well controlled during admit with range of 70-203 mg/dL x last two days 2. Ensure High Protein TIDWM 3. Routine bowel care 4. Weekly scaled wts Addendum: 08/09/20 at [address] Amended: Links added.
[2020-08-09] MEDS: insulin Lispro (HumaLOG) vial - multi-dose SQ SCH ×3 (09:49→19:08)
--- NOTE | 2020-08-09 10:00 | NUR ---
Dr Lacey at bedside with patient. Patient requested that he would like to eat the candy that was brought in for him. Dr. lacey obliged and will allow patient to have candy and to cover him as needed per the hypo/hyperglycemic protocol. Acknowledged Dr. Lacey's request and allowed patient to have candy.
[2020-08-09 11:00] VITALS: BP 109/72
[2020-08-09 15:00] VITALS: BP 119/76
[2020-08-09] MEDS: furosemide 20 MG/2 ML vial IV SCH (16:35)
--- NOTE | 2020-08-09 16:45 | NUR ---
Patient requiring to be put on BIPAP more frequently the last two hours after oxygen saturations had dropped into the mid 80's while on 15L Hi-Flow nasal cannula. Dr. Lacey was notified and requested that he be placed onto BIPAP PRN.
[2020-08-09 18:00] VITALS: BP 136/87
[2020-08-09] MEDS: insulin glargine (Lantus) pen - multi-dose SQ SCH (21:32)
[2020-08-09 22:00] VITALS: BP 129/85
[2020-08-10] MEDS: LORazepam 2 mg/ml vial IV PRN ×3 (01:41→17:23)
[2020-08-10] MEDS: ipratropium/albuterol 3ml nebule NEB SCH ×6 (03:03→23:55)
[2020-08-10 04:34] VITALS: BP 122/84
[2020-08-10 06:18] LABS: BASOPHILS % (AUTO) 0.1 % (0-1); EOSINOPHILS # (AUTO) 0.6 X10'3 (0-0.9); EOSINOPHILS % (AUTO) 3.5 % (0-6); HEMATOCRIT 48.5 % (42.0-52.0); HEMOGLOBIN 15.7 g/dl (14.0-17.9); LYMPHOCYTES # (AUTO) 3.7 X10'3 (1.1-4.8); LYMPHOCYTES % (AUTO) 22.2 % (21-51); MEAN CORPUSCULAR HEMOGLOBIN 26.2 PG (27.0-31.0); MEAN CORPUSCULAR HGB CONC 32.5 g/dL (33.0-36.5); MEAN CORPUSCULAR VOLUME 80.8 FL (78-98); MEAN PLATELET VOLUME 8.6 FL (7.4-10.4); MONOCYTES # (AUTO) 1.1 X10'3 (0-0.9); MONOCYTES % (AUTO) 6.6 % (2-12); NEUTROPHILS # (AUTO) 11.2 X10'3 (1.8-7.7); NEUTROPHILS % (AUTO) 67.6 % (42-75); PLATELET COUNT 362 X10'3 (140-440); RED CELL DISTRIBUTION WIDTH 16.7 % (11.5-14.5); WHITE BLOOD COUNT 16.5 X10'3 (4.5-11.0)
[2020-08-10 06:32] LABS: ALANINE AMINOTRANSFERASE 19 U/L (12-78); ALBUMIN 3.3 G/DL (3.4-5.0); ALBUMIN/GLOBULIN RATIO 0.9 (1.1-1.5); ALKALINE PHOSPHATASE 79 IU/L (46-116); ANION GAP 5 (8-16); ASPARTATE AMINO TRANSFERASE 10 U/L (10-37); BILIRUBIN,TOTAL 0.4 MG/DL (0.1-1.0); CALCIUM 9.2 MG/DL (8.5-10.1); CHLORIDE 99 MMOL/L (99-107); CREATININE 0.81 MG/DL (0.60-1.10); GLUCOSE 107 MG/DL (70-104); MAGNESIUM 2.3 MG/DL (1.5-2.4); PHOSPHORUS 3.1 MG/DL (2.3-4.5); POTASSIUM 4.1 MMOL/L (3.5-5.1); SODIUM 139 MMOL/L (135-145); TOTAL CARBON DIOXIDE 35.1 MMOL/L (24-32); eGFR > 90 ML/MIN
[2020-08-10 07:00] VITALS: BP 119/88
[2020-08-10 07:02] LABS: ANISOCYTOSIS 1+; PLATELET ESTIMATE NORMAL; TOTAL CELLS COUNTED 100; TOXIC GRANULATION 1+
[2020-08-10 07:12] LABS: BLOOD UREA NITROGEN 26 MG/DL (7-18); BUN/CREATININE RATIO 32.1 (5.4-32.0)
[2020-08-10] MEDS: predniSONE 20 mg tablet PO SCH (07:54)
[2020-08-10] MEDS: gemfibrozil 600mg tablet PO SCH ×2 (07:54→17:17)
[2020-08-10] MEDS: PARoxetine 10mg tablet PO SCH (07:55)
[2020-08-10] MEDS: multivitamins, therapeutics tablet PO SCH (07:55)
[2020-08-10] MEDS: pantoprazole 40mg Tablet.DR PO SCH (07:55)
[2020-08-10] MEDS: mycophenolate mofetil 250mg capsule PO SCH ×2 (07:55→21:03)
[2020-08-10] MEDS: spironolactone 25 MG tablet PO SCH ×2 (07:55→21:02)
[2020-08-10] MEDS: docusate sod 100mg capsule PO SCH ×2 (07:56→21:03)
[2020-08-10] MEDS: OMEGA-3/DHA/EPA/FISH OIL 1 EACH CAPSULE.DR PO SCH (07:56)
[2020-08-10] MEDS: aspirin 81mg tab.chew PO SCH (07:56)
[2020-08-10] MEDS: lactose-reduced food (Ensure High Protein) 237ml bottle PO SCH ×3 (07:56→18:26)
[2020-08-10] MEDS: furosemide 20 MG/2 ML vial IV SCH (07:56)
[2020-08-10] MEDS: enoxaparin 40mg/0.4ml syringe SUBCUT SCH (07:57)
[2020-08-10] MEDS: insulin Lispro (HumaLOG) vial - multi-dose SQ SCH ×3 (08:22→19:14)
[2020-08-10 11:30] VITALS: BP 105/77
--- NOTE | 2020-08-10 12:03 | NUR ---
Pt. transfered to commode. DESAT to low 80s. BIPAP readjusted and put on pt. Primary RN at bedside. RT paged. Currently at 90% on BIPAP and N/c @15LPM.
--- NOTE | 2020-08-10 13:36 | NUR ---
RETURNED FROM LUNCH BREAK IN WHICH WAXER OPERATOR SHAYLA HAD "ASSUMED DIRECT CARE OF PATIENTS". REQUESTED THAT LUNCH MEAL BE COVERED WITH INSULIN AND INSTRUCTED THAT THEE "PT SHOULD NOT EAT ANY MORE OF HIS LUNCH BECAUSE HE HAD EATEN MOST OF HIS LUNCH ALREADY AND HAD DE-SATED WHILE EATING. PT NEEDED TO LEAVE BIPAP ON". WAXER OPERATOR SHOWED DISGRUNTLED NONVERBAL LANGUAGE AND SIGHED VERBALLY. CHARGE WAS NOTIFIED THE AMOUNT OF CARBOHYDRATES AND THE PROTOCOL LEVEL OF THE PT. BY PRIMARY RN BEFORE LEAVING FOR BREAK. PRIMARY RN HAD OFFERED TO ADMINISTER INSULIN BEFORE LEAVING FOR LUNCH BUT CHARGE STATED "JUST GO." DIRECTOR ROBBY SITTING NEXT TO CHARGE DID NOT SAY ANYTHING. ON RETURN FROM BREAK SHAYLA REPLIED "WELL I DIDN'T GIVE THAT PT. THE 1 UNIT OF INSULIN THAT WOULD HAVE BEEN HIS COVERAGE. YOU SAID HE DIDN'T EAT ANYTHING. I WAS SITTING RIGHT HERE. "
--- NOTE | 2020-08-10 13:44 | NUR ---
in room rounding on pt. at this time. Mostly eaten lunch tray is in room with pt.'s name slip and carb count near bedside. Will cover insulin at this time.
--- NOTE | 2020-08-10 14:21 | NUR ---
RECEIVED REPORT FROM BREANNA MEDINA. PATIENT IN ROOM. PHYSICAL THERAPY AT BEDSIDE GETTING READY TO WORK WITH HIM.
--- NOTE | 2020-08-10 14:28 | NUR ---
Gave report to Esme CARLOS.
[2020-08-10 16:05] VITALS: BP 122/81
[2020-08-10 18:00] VITALS: BP 117/84
--- NOTE | 2020-08-10 18:29 | NUR ---
Problems reprioritized. Patient report given, questions answered & plan of care reviewed with BREANNA BOWDEN.
--- NOTE | 2020-08-10 18:30 | NUR ---
Patient in room PCU 3012. I have received report from Dee CARLOS and had the opportunity to ask questions and assume patient care.
[2020-08-10 22:00] VITALS: BP 116/79
[2020-08-10] MEDS: insulin glargine (Lantus) pen - multi-dose SQ SCH (22:37)
[2020-08-11 02:00] VITALS: BP 104/62
[2020-08-11] MEDS: LORazepam 2 mg/ml vial IV PRN ×3 (03:04→19:55)
[2020-08-11] MEDS: ipratropium/albuterol 3ml nebule NEB SCH ×6 (03:09→23:43)
[2020-08-11 06:00] VITALS: BP 111/74
--- NOTE | 2020-08-11 06:27 | NUR ---
Problems reprioritized. Patient report given, questions answered & plan of care reviewed with Kyleigh CARLOS.
--- NOTE | 2020-08-11 06:32 | NUR ---
Patient in room PCU 3012. I have received report from BREANNA Willard and had the opportunity to ask questions and assume patient care.
[2020-08-11 06:41] LABS: BASOPHILS % (AUTO) 0.2 % (0-1); EOSINOPHILS # (AUTO) 0.5 X10'3 (0-0.9); EOSINOPHILS % (AUTO) 3.3 % (0-6); HEMATOCRIT 48.2 % (42.0-52.0); HEMOGLOBIN 15.8 g/dl (14.0-17.9); LYMPHOCYTES # (AUTO) 3.2 X10'3 (1.1-4.8); LYMPHOCYTES % (AUTO) 19.8 % (21-51); MEAN CORPUSCULAR HEMOGLOBIN 26.5 PG (27.0-31.0); MEAN CORPUSCULAR HGB CONC 32.8 g/dL (33.0-36.5); MEAN CORPUSCULAR VOLUME 80.7 FL (78-98); MEAN PLATELET VOLUME 8.5 FL (7.4-10.4); MONOCYTES # (AUTO) 1.4 X10'3 (0-0.9); MONOCYTES % (AUTO) 8.3 % (2-12); NEUTROPHILS # (AUTO) 11.2 X10'3 (1.8-7.7); NEUTROPHILS % (AUTO) 68.4 % (42-75); PLATELET COUNT 406 X10'3 (140-440); RED BLOOD COUNT 5.97 X10'6 (4.70-6.10); RED CELL DISTRIBUTION WIDTH 17.5 % (11.5-14.5); WHITE BLOOD COUNT 16.3 X10'3 (4.5-11.0)
[2020-08-11 06:48] LABS: ALBUMIN 3.4 G/DL (3.4-5.0); ANION GAP 4 (8-16); ASPARTATE AMINO TRANSFERASE 8 U/L (10-37); BILIRUBIN,TOTAL 0.3 MG/DL (0.1-1.0); BLOOD UREA NITROGEN 25 MG/DL (7-18); BUN/CREATININE RATIO 40.3 (5.4-32.0); CHLORIDE 98 MMOL/L (99-107); CREATININE 0.62 MG/DL (0.60-1.10); GLUCOSE 91 MG/DL (70-104); MAGNESIUM 2.2 MG/DL (1.5-2.4); PHOSPHORUS 3.8 MG/DL (2.3-4.5); SODIUM 136 MMOL/L (135-145); TOTAL CARBON DIOXIDE 33.7 MMOL/L (24-32); TOTAL PROTEIN 6.9 G/DL (6.4-8.2); eGFR > 90 ML/MIN
[2020-08-11 06:49] LABS: ALANINE AMINOTRANSFERASE 19 U/L (12-78); ALKALINE PHOSPHATASE 76 IU/L (46-116)
[2020-08-11] MEDS: pantoprazole 40mg Tablet.DR PO SCH (07:40)
[2020-08-11] MEDS: OMEGA-3/DHA/EPA/FISH OIL 1 EACH CAPSULE.DR PO SCH (07:40)
[2020-08-11] MEDS: gemfibrozil 600mg tablet PO SCH ×2 (07:41→17:38)
[2020-08-11] MEDS: aspirin 81mg tab.chew PO SCH (07:41)
[2020-08-11] MEDS: predniSONE 20 mg tablet PO SCH (07:41)
[2020-08-11] MEDS: PARoxetine 10mg tablet PO SCH (07:41)
[2020-08-11] MEDS: multivitamins, therapeutics tablet PO SCH (07:41)
[2020-08-11] MEDS: furosemide 20 MG/2 ML vial IV SCH (07:42)
[2020-08-11] MEDS: spironolactone 25 MG tablet PO SCH ×2 (07:42→19:55)
[2020-08-11] MEDS: docusate sod 100mg capsule PO SCH ×3 (08:05→20:00)
[2020-08-11] MEDS: enoxaparin 40mg/0.4ml syringe SUBCUT SCH (08:05)
[2020-08-11] MEDS: mycophenolate mofetil 250mg capsule PO SCH ×2 (08:05→19:51)
[2020-08-11] MEDS: lactose-reduced food (Ensure High Protein) 237ml bottle PO SCH ×3 (08:34→18:45)
[2020-08-11 08:58] VITALS: BP 111/74
[2020-08-11] MEDS: insulin Lispro (HumaLOG) vial - multi-dose SQ SCH ×3 (09:39→20:05)
[2020-08-11 11:00] VITALS: BP 112/76
--- NOTE | 2020-08-11 13:30 | NUR ---
IV ATTEMPT COMPLETED BY MARINE RIGGER NANCY FERNANDEZ.
[2020-08-11 15:00] VITALS: BP 117/77
--- NOTE | 2020-08-11 15:00 | NUR ---
Patient requests that only his daughter be able to contact him; excluding his girlfriend Cherry from the contact list.
--- NOTE | 2020-08-11 18:27 | NUR ---
Problems reprioritized. Patient report given, questions answered & plan of care reviewed with BREANNA Cadena.
[2020-08-11] MEDS: insulin glargine (Lantus) pen - multi-dose SQ SCH (22:10)
[2020-08-12] MEDS: ipratropium/albuterol 3ml nebule NEB SCH ×6 (03:18→23:20)
--- NOTE | 2020-08-12 06:30 | NUR ---
Patient in room PCU 3012. I have received report from Tammi CARLOS and had the opportunity to ask questions and assume patient care.
[2020-08-12 06:58] LABS: BASOPHILS # (AUTO) 0.1 X10'3 (0-0.2); BASOPHILS % (AUTO) 0.3 % (0-1); EOSINOPHILS # (AUTO) 0.3 X10'3 (0-0.9); EOSINOPHILS % (AUTO) 1.9 % (0-6); HEMATOCRIT 46.7 % (42.0-52.0); HEMOGLOBIN 15.5 g/dl (14.0-17.9); LYMPHOCYTES # (AUTO) 3.9 X10'3 (1.1-4.8); LYMPHOCYTES % (AUTO) 23.8 % (21-51); MEAN CORPUSCULAR HEMOGLOBIN 26.5 PG (27.0-31.0); MEAN CORPUSCULAR HGB CONC 33.2 g/dL (33.0-36.5); MEAN CORPUSCULAR VOLUME 79.9 FL (78-98); MEAN PLATELET VOLUME 8.4 FL (7.4-10.4); MONOCYTES # (AUTO) 1.3 X10'3 (0-0.9); PLATELET COUNT 389 X10'3 (140-440); RED BLOOD COUNT 5.85 X10'6 (4.70-6.10); RED CELL DISTRIBUTION WIDTH 17.1 % (11.5-14.5); WHITE BLOOD COUNT 16.6 X10'3 (4.5-11.0)
[2020-08-12 07:00] VITALS: BP 122/78
[2020-08-12 07:21] LABS: ALANINE AMINOTRANSFERASE 21 U/L (12-78); ALBUMIN 3.3 G/DL (3.4-5.0); ALKALINE PHOSPHATASE 66 IU/L (46-116); ANION GAP 7 (8-16); ASPARTATE AMINO TRANSFERASE 15 U/L (10-37); BILIRUBIN,TOTAL 0.5 MG/DL (0.1-1.0); BLOOD UREA NITROGEN 33 MG/DL (7-18); BUN/CREATININE RATIO 49.3 (5.4-32.0); CALCIUM 9.3 MG/DL (8.5-10.1); CHLORIDE 98 MMOL/L (99-107); CREATININE 0.67 MG/DL (0.60-1.10); GLUCOSE 98 MG/DL (70-104); PHOSPHORUS 3.8 MG/DL (2.3-4.5); POTASSIUM 4.1 MMOL/L (3.5-5.1); SODIUM 136 MMOL/L (135-145); TOTAL CARBON DIOXIDE 30.6 MMOL/L (24-32); TOTAL PROTEIN 6.6 G/DL (6.4-8.2); eGFR > 90 ML/MIN
[2020-08-12] MEDS: gemfibrozil 600mg tablet PO SCH ×2 (07:41→17:33)
[2020-08-12] MEDS: pantoprazole 40mg Tablet.DR PO SCH (07:41)
[2020-08-12] MEDS: furosemide 20 MG/2 ML vial IV SCH (07:41)
[2020-08-12] MEDS: mycophenolate mofetil 250mg capsule PO SCH ×2 (07:42→20:10)
[2020-08-12] MEDS: aspirin 81mg tab.chew PO SCH (07:42)
[2020-08-12] MEDS: spironolactone 25 MG tablet PO SCH ×2 (07:42→20:11)
[2020-08-12] MEDS: predniSONE 20 mg tablet PO SCH (07:43)
[2020-08-12] MEDS: docusate sod 100mg capsule PO SCH ×2 (07:43→20:00)
[2020-08-12] MEDS: PARoxetine 10mg tablet PO SCH (07:43)
[2020-08-12] MEDS: multivitamins, therapeutics tablet PO SCH (07:43)
[2020-08-12] MEDS: lactose-reduced food (Ensure High Protein) 237ml bottle PO SCH ×3 (07:43→18:00)
[2020-08-12] MEDS: OMEGA-3/DHA/EPA/FISH OIL 1 EACH CAPSULE.DR PO SCH (07:43)
[2020-08-12] MEDS: enoxaparin 40mg/0.4ml syringe SUBCUT SCH (07:44)
[2020-08-12 08:04] LABS: TOTAL CELLS COUNTED 100
[2020-08-12 08:05] LABS: ANISOCYTOSIS 1+; HYPOCHROMASIA 1+; MICROCYTOSIS 1+; PLATELET ESTIMATE NORMAL; POLYCHROMASIA 1+
[2020-08-12] MEDS: LORazepam 2 mg/ml vial IV PRN ×2 (09:06→20:13)
[2020-08-12] MEDS: insulin Lispro (HumaLOG) vial - multi-dose SQ SCH ×3 (09:08→20:07)
[2020-08-12 11:00] VITALS: BP 118/73
[2020-08-12 15:00] VITALS: BP 112/70
[2020-08-12 18:00] VITALS: BP 95/66
--- NOTE | 2020-08-12 18:00 | NUR ---
Patient in room PCU 3012. I have received report from TASHI CARLOS and had the opportunity to ask questions and assume patient care.
--- NOTE | 2020-08-12 18:25 | NUR ---
Problems reprioritized. Patient report given, questions answered & plan of care reviewed with Laurel CARLOS.
[2020-08-12] MEDS: insulin glargine (Lantus) pen - multi-dose SQ SCH (21:00)
[2020-08-12 22:00] VITALS: BP 105/71
[2020-08-13 02:00] VITALS: BP 116/79
[2020-08-13] MEDS: ipratropium/albuterol 3ml nebule NEB SCH ×6 (03:05→23:24)
--- NOTE | 2020-08-13 06:23 | NUR ---
Problems reprioritized. Patient report given, questions answered & plan of care reviewed with TASHI CARLOS.
--- NOTE | 2020-08-13 06:27 | NUR ---
Patient in room PCU 3012. I have received report from Garrett CARLOS and had the opportunity to ask questions and assume patient care. Pt on bipap sleeping no acute distress
[2020-08-13 06:45] LABS: BASOPHILS # (AUTO) 0.1 X10'3 (0-0.2); BASOPHILS % (AUTO) 0.5 % (0-1); EOSINOPHILS # (AUTO) 0.4 X10'3 (0-0.9); EOSINOPHILS % (AUTO) 2.1 % (0-6); HEMATOCRIT 48.2 % (42.0-52.0); HEMOGLOBIN 15.8 g/dl (14.0-17.9); LYMPHOCYTES # (AUTO) 3.1 X10'3 (1.1-4.8); LYMPHOCYTES % (AUTO) 17.2 % (21-51); MEAN CORPUSCULAR HEMOGLOBIN 26.2 PG (27.0-31.0); MEAN CORPUSCULAR HGB CONC 32.8 g/dL (33.0-36.5); MEAN CORPUSCULAR VOLUME 79.9 FL (78-98); MEAN PLATELET VOLUME 8.2 FL (7.4-10.4); MONOCYTES # (AUTO) 1.4 X10'3 (0-0.9); MONOCYTES % (AUTO) 7.7 % (2-12); NEUTROPHILS % (AUTO) 72.5 % (42-75); PLATELET COUNT 390 X10'3 (140-440); RED BLOOD COUNT 6.03 X10'6 (4.70-6.10); RED CELL DISTRIBUTION WIDTH 17.1 % (11.5-14.5); WHITE BLOOD COUNT 17.9 X10'3 (4.5-11.0)
[2020-08-13 07:00] VITALS: BP 112/81
[2020-08-13 07:04] LABS: ALANINE AMINOTRANSFERASE 19 U/L (12-78); ALBUMIN 3.3 G/DL (3.4-5.0); ALKALINE PHOSPHATASE 69 IU/L (46-116); ANION GAP 6 (8-16); ASPARTATE AMINO TRANSFERASE 11 U/L (10-37); BILIRUBIN,TOTAL 0.4 MG/DL (0.1-1.0); BLOOD UREA NITROGEN 29 MG/DL (7-18); CALCIUM 8.9 MG/DL (8.5-10.1); CHLORIDE 97 MMOL/L (99-107); CREATININE 0.63 MG/DL (0.60-1.10); GLUCOSE 99 MG/DL (70-104); MAGNESIUM 2.1 MG/DL (1.5-2.4); PHOSPHORUS 4.4 MG/DL (2.3-4.5); POTASSIUM 4.1 MMOL/L (3.5-5.1); SODIUM 134 MMOL/L (135-145); TOTAL CARBON DIOXIDE 30.9 MMOL/L (24-32); TOTAL PROTEIN 6.7 G/DL (6.4-8.2); eGFR > 90 ML/MIN
[2020-08-13 07:37] LABS: TOTAL CELLS COUNTED 100
[2020-08-13 07:38] LABS: ANISOCYTOSIS 1+; MICROCYTOSIS 1+; PLATELET ESTIMATE NORMAL
[2020-08-13] MEDS: docusate sod 100mg capsule PO SCH ×2 (08:00→20:00)
[2020-08-13] MEDS: pantoprazole 40mg Tablet.DR PO SCH (08:05)
[2020-08-13] MEDS: gemfibrozil 600mg tablet PO SCH ×2 (08:05→17:41)
[2020-08-13] MEDS: furosemide 20 MG/2 ML vial IV SCH (08:05)
[2020-08-13] MEDS: PARoxetine 10mg tablet PO SCH (08:06)
[2020-08-13] MEDS: predniSONE 20 mg tablet PO SCH (08:06)
[2020-08-13] MEDS: aspirin 81mg tab.chew PO SCH (08:06)
[2020-08-13] MEDS: multivitamins, therapeutics tablet PO SCH (08:06)
[2020-08-13] MEDS: OMEGA-3/DHA/EPA/FISH OIL 1 EACH CAPSULE.DR PO SCH (08:06)
[2020-08-13] MEDS: spironolactone 25 MG tablet PO SCH ×2 (08:06→20:10)
[2020-08-13] MEDS: enoxaparin 40mg/0.4ml syringe SUBCUT SCH (08:07)
[2020-08-13] MEDS: mycophenolate mofetil 250mg capsule PO SCH ×2 (08:09→20:09)
[2020-08-13] MEDS: lactose-reduced food (Ensure High Protein) 237ml bottle PO SCH ×3 (08:12→18:00)
[2020-08-13] MEDS: insulin Lispro (HumaLOG) vial - multi-dose SQ SCH ×4 (08:18→20:17)
[2020-08-13] MEDS: LORazepam 2 mg/ml vial IV PRN ×4 (08:25→21:40)
[2020-08-13 11:00] VITALS: BP 111/82
[2020-08-13 15:00] VITALS: BP 134/92
[2020-08-13 18:00] VITALS: BP 136/97
--- NOTE | 2020-08-13 18:14 | NUR ---
Problems reprioritized. Patient report given, questions answered & plan of care reviewed with Evan CARLOS . Patient stable at this time.
[2020-08-13] MEDS: insulin glargine (Lantus) pen - multi-dose SQ SCH (20:15)
[2020-08-13 22:00] VITALS: BP 108/60
[2020-08-14] MEDS: LORazepam 2 mg/ml vial IV PRN ×3 (01:30→19:30)
[2020-08-14 02:00] VITALS: BP 131/84
[2020-08-14] MEDS: ipratropium/albuterol 3ml nebule NEB SCH ×6 (03:10→23:52)
[2020-08-14 07:00] VITALS: BP 114/75
[2020-08-14 07:25] LABS: BASOPHILS % (AUTO) 0.2 % (0-1); EOSINOPHILS # (AUTO) 0.3 X10'3 (0-0.9); EOSINOPHILS % (AUTO) 1.9 % (0-6); HEMATOCRIT 48.1 % (42.0-52.0); HEMOGLOBIN 15.8 g/dl (14.0-17.9); LYMPHOCYTES # (AUTO) 2.7 X10'3 (1.1-4.8); LYMPHOCYTES % (AUTO) 15.6 % (21-51); MEAN CORPUSCULAR HEMOGLOBIN 26.4 PG (27.0-31.0); MEAN CORPUSCULAR HGB CONC 32.8 g/dL (33.0-36.5); MEAN CORPUSCULAR VOLUME 80.6 FL (78-98); MEAN PLATELET VOLUME 8.5 FL (7.4-10.4); MONOCYTES # (AUTO) 1.4 X10'3 (0-0.9); MONOCYTES % (AUTO) 7.8 % (2-12); NEUTROPHILS % (AUTO) 74.5 % (42-75); PLATELET COUNT 396 X10'3 (140-440); RED BLOOD COUNT 5.98 X10'6 (4.70-6.10); RED CELL DISTRIBUTION WIDTH 16.8 % (11.5-14.5); WHITE BLOOD COUNT 17.5 X10'3 (4.5-11.0)
[2020-08-14 07:40] LABS: ALANINE AMINOTRANSFERASE 20 U/L (12-78); ALBUMIN 3.2 G/DL (3.4-5.0); ALBUMIN/GLOBULIN RATIO 0.9 (1.1-1.5); ANION GAP 7 (8-16); ASPARTATE AMINO TRANSFERASE 15 U/L (10-37); BILIRUBIN,TOTAL 0.4 MG/DL (0.1-1.0); BLOOD UREA NITROGEN 33 MG/DL (7-18); BUN/CREATININE RATIO 51.6 (5.4-32.0); CALCIUM 9.2 MG/DL (8.5-10.1); CHLORIDE 97 MMOL/L (99-107); CREATININE 0.64 MG/DL (0.60-1.10); GLUCOSE 127 MG/DL (70-104); MAGNESIUM 2.1 MG/DL (1.5-2.4); PHOSPHORUS 3.5 MG/DL (2.3-4.5); SODIUM 134 MMOL/L (135-145); TOTAL CARBON DIOXIDE 30.3 MMOL/L (24-32); TOTAL PROTEIN 6.8 G/DL (6.4-8.2); eGFR > 90 ML/MIN
[2020-08-14] MEDS: docusate sod 100mg capsule PO SCH ×2 (08:00→19:32)
[2020-08-14] MEDS: lactose-reduced food (Ensure High Protein) 237ml bottle PO SCH ×3 (08:00→18:00)
[2020-08-14 08:11] LABS: ALKALINE PHOSPHATASE 73 IU/L (46-116)
[2020-08-14] MEDS: gemfibrozil 600mg tablet PO SCH ×2 (09:32→19:32)
[2020-08-14] MEDS: pantoprazole 40mg Tablet.DR PO SCH (09:33)
[2020-08-14] MEDS: spironolactone 25 MG tablet PO SCH ×2 (09:33→19:32)
[2020-08-14] MEDS: furosemide 20 MG/2 ML vial IV SCH (09:33)
[2020-08-14] MEDS: OMEGA-3/DHA/EPA/FISH OIL 1 EACH CAPSULE.DR PO SCH (09:34)
[2020-08-14] MEDS: mycophenolate mofetil 250mg capsule PO SCH ×2 (09:34→19:33)
[2020-08-14] MEDS: aspirin 81mg tab.chew PO SCH (09:34)
[2020-08-14] MEDS: enoxaparin 40mg/0.4ml syringe SUBCUT SCH (09:35)
[2020-08-14] MEDS: PARoxetine 10mg tablet PO SCH (09:35)
[2020-08-14] MEDS: multivitamins, therapeutics tablet PO SCH (09:35)
[2020-08-14] MEDS: predniSONE 20 mg tablet PO SCH (09:35)
[2020-08-14] MEDS: insulin Lispro (HumaLOG) vial - multi-dose SQ SCH ×2 (09:40→13:54)
[2020-08-14 11:00] VITALS: BP 95/66
[2020-08-14 12:36] LABS: TOTAL CELLS COUNTED 100
[2020-08-14 12:37] LABS: ANISOCYTOSIS 1+; HYPOCHROMASIA 1+; PLATELET ESTIMATE NORMAL
[2020-08-14 15:00] VITALS: BP 113/88
[2020-08-14 18:00] VITALS: BP 128/89
--- NOTE | 2020-08-14 18:22 | NUR ---
Problems reprioritized. Patient report given, questions answered & plan of care reviewed with Rosio RN. Patient stable at this time.
[2020-08-14] MEDS: insulin glargine (Lantus) pen - multi-dose SQ SCH (21:59)
[2020-08-14 22:00] VITALS: BP 133/84
[2020-08-15] MEDS: LORazepam 2 mg/ml vial IV PRN ×4 (01:03→20:02)
[2020-08-15 02:00] VITALS: BP 139/85
[2020-08-15] MEDS: ipratropium/albuterol 3ml nebule NEB SCH ×5 (03:23→23:09)
[2020-08-15 06:00] VITALS: BP 118/63
--- NOTE | 2020-08-15 06:37 | NUR ---
Patient in room PCU 3012. I have received report from Rosio CARLOS and had the opportunity to ask questions and assume patient care.
[2020-08-15 07:06] LABS: BASOPHILS # (AUTO) 0.1 X10'3 (0-0.2); BASOPHILS % (AUTO) 0.4 % (0-1); EOSINOPHILS # (AUTO) 0.3 X10'3 (0-0.9); EOSINOPHILS % (AUTO) 1.8 % (0-6); HEMATOCRIT 47.6 % (42.0-52.0); HEMOGLOBIN 15.8 g/dl (14.0-17.9); LYMPHOCYTES # (AUTO) 3.7 X10'3 (1.1-4.8); LYMPHOCYTES % (AUTO) 21.1 % (21-51); MEAN CORPUSCULAR HEMOGLOBIN 26.4 PG (27.0-31.0); MEAN CORPUSCULAR HGB CONC 33.3 g/dL (33.0-36.5); MEAN CORPUSCULAR VOLUME 79.4 FL (78-98); MEAN PLATELET VOLUME 8.1 FL (7.4-10.4); MONOCYTES # (AUTO) 1.4 X10'3 (0-0.9); MONOCYTES % (AUTO) 7.9 % (2-12); NEUTROPHILS % (AUTO) 68.8 % (42-75); PLATELET COUNT 383 X10'3 (140-440); RED CELL DISTRIBUTION WIDTH 16.8 % (11.5-14.5); WHITE BLOOD COUNT 17.4 X10'3 (4.5-11.0)
[2020-08-15 07:48] LABS: ALANINE AMINOTRANSFERASE 22 U/L (12-78); ALBUMIN 3.4 G/DL (3.4-5.0); ALKALINE PHOSPHATASE 68 IU/L (46-116); ANION GAP 8 (8-16); ASPARTATE AMINO TRANSFERASE 12 U/L (10-37); BILIRUBIN,TOTAL 0.4 MG/DL (0.1-1.0); BLOOD UREA NITROGEN 35 MG/DL (7-18); BUN/CREATININE RATIO 52.2 (5.4-32.0); CALCIUM 9.2 MG/DL (8.5-10.1); CHLORIDE 97 MMOL/L (99-107); CREATININE 0.67 MG/DL (0.60-1.10); GLUCOSE 100 MG/DL (70-104); MAGNESIUM 2.1 MG/DL (1.5-2.4); PHOSPHORUS 3.9 MG/DL (2.3-4.5); POTASSIUM 4.1 MMOL/L (3.5-5.1); SODIUM 134 MMOL/L (135-145); TOTAL CARBON DIOXIDE 29.3 MMOL/L (24-32); TOTAL PROTEIN 6.9 G/DL (6.4-8.2); eGFR > 90 ML/MIN
[2020-08-15] MEDS: furosemide 20 MG/2 ML vial IV SCH (08:19)
[2020-08-15] MEDS: docusate sod 100mg capsule PO SCH ×2 (08:20→20:00)
[2020-08-15] MEDS: PARoxetine 10mg tablet PO SCH (08:20)
[2020-08-15] MEDS: gemfibrozil 600mg tablet PO SCH ×2 (08:20→17:08)
[2020-08-15] MEDS: OMEGA-3/DHA/EPA/FISH OIL 1 EACH CAPSULE.DR PO SCH (08:20)
[2020-08-15] MEDS: predniSONE 20 mg tablet PO SCH (08:20)
[2020-08-15] MEDS: pantoprazole 40mg Tablet.DR PO SCH (08:20)
[2020-08-15] MEDS: spironolactone 25 MG tablet PO SCH ×2 (08:21→20:03)
[2020-08-15] MEDS: multivitamins, therapeutics tablet PO SCH (08:21)
[2020-08-15] MEDS: aspirin 81mg tab.chew PO SCH (08:21)
[2020-08-15] MEDS: enoxaparin 40mg/0.4ml syringe SUBCUT SCH (08:21)
[2020-08-15] MEDS: lactose-reduced food (Ensure High Protein) 237ml bottle PO SCH ×3 (08:22→18:00)
[2020-08-15] MEDS: insulin Lispro (HumaLOG) vial - multi-dose SQ SCH ×3 (08:33→22:16)
--- NOTE | 2020-08-15 10:38 | NUR ---
F/u 08/15: Pt PO 100% avg CCHO/heart healthy diet, ensure high protein TIDWM, and double protein/cottage cheese TIDWM meeting needs. Pt exceeding nutrient needs at this time but above items sent for satiety. LBM 08/13, receiving routine bowel care. No nutrition concerns at this time. Will continue to follow. Rec: 1. Continue carb controlled/heart healthy diet; double protein TIDWM and cottage cheese TIDWM for satiety 2. Ensure High Protein TIDWM 3. Routine bowel care 4. Weekly scaled wts Addendum: 08/15/20 at [address] Amended: Links added.
[2020-08-15 11:00] VITALS: BP 123/68
[2020-08-15] MEDS: mycophenolate mofetil 250mg capsule PO SCH ×2 (12:19→20:04)
[2020-08-15 15:00] VITALS: BP 121/71
[2020-08-15 18:00] VITALS: BP 118/90
--- NOTE | 2020-08-15 18:10 | NUR ---
Problems reprioritized. Patient report given, questions answered & plan of care reviewed with Rosio CARLOS.
[2020-08-15] MEDS: insulin glargine (Lantus) pen - multi-dose SQ SCH (22:13)
[2020-08-16] MEDS: LORazepam 2 mg/ml vial IV PRN ×5 (03:19→21:21)
[2020-08-16] MEDS: ipratropium/albuterol 3ml nebule NEB SCH ×5 (03:25→19:07)
--- NOTE | 2020-08-16 06:45 | NUR ---
Patient in room PCU 3012. I have received report from Rosio CARLOS and had the opportunity to ask questions and assume patient care.
[2020-08-16 07:00] VITALS: BP 130/79
[2020-08-16] MEDS: mycophenolate mofetil 250mg capsule PO SCH ×2 (07:35→21:21)
[2020-08-16] MEDS: aspirin 81mg tab.chew PO SCH (07:36)
[2020-08-16] MEDS: OMEGA-3/DHA/EPA/FISH OIL 1 EACH CAPSULE.DR PO SCH (07:36)
[2020-08-16] MEDS: furosemide 20 MG/2 ML vial IV SCH (07:36)
[2020-08-16] MEDS: pantoprazole 40mg Tablet.DR PO SCH (07:37)
[2020-08-16] MEDS: spironolactone 25 MG tablet PO SCH ×2 (07:37→21:28)
[2020-08-16] MEDS: gemfibrozil 600mg tablet PO SCH ×2 (07:37→17:04)
[2020-08-16] MEDS: predniSONE 20 mg tablet PO SCH (07:37)
[2020-08-16] MEDS: PARoxetine 10mg tablet PO SCH (07:37)
[2020-08-16] MEDS: multivitamins, therapeutics tablet PO SCH (07:37)
[2020-08-16] MEDS: enoxaparin 40mg/0.4ml syringe SUBCUT SCH (07:39)
[2020-08-16] MEDS: docusate sod 100mg capsule PO SCH ×3 (08:00→21:21)
[2020-08-16] MEDS: lactose-reduced food (Ensure High Protein) 237ml bottle PO SCH ×3 (08:25→18:55)
[2020-08-16] MEDS: insulin Lispro (HumaLOG) vial - multi-dose SQ SCH ×3 (08:50→19:09)
[2020-08-16] MEDS ORDERED: benzonatate 100mg capsule PO PRN (09:50)
[2020-08-16 10:48] LABS: BASOPHILS % (AUTO) 0.2 % (0-1); EOSINOPHILS # (AUTO) 0.2 X10'3 (0-0.9); EOSINOPHILS % (AUTO) 0.9 % (0-6); HEMATOCRIT 49.5 % (42.0-52.0); HEMOGLOBIN 16.2 g/dl (14.0-17.9); LYMPHOCYTES # (AUTO) 1.5 X10'3 (1.1-4.8); LYMPHOCYTES % (AUTO) 7.8 % (21-51); MEAN CORPUSCULAR HEMOGLOBIN 26.2 PG (27.0-31.0); MEAN CORPUSCULAR HGB CONC 32.7 g/dL (33.0-36.5); MEAN CORPUSCULAR VOLUME 80.1 FL (78-98); MEAN PLATELET VOLUME 8.1 FL (7.4-10.4); MONOCYTES # (AUTO) 0.6 X10'3 (0-0.9); MONOCYTES % (AUTO) 3.3 % (2-12); NEUTROPHILS # (AUTO) 16.5 X10'3 (1.8-7.7); NEUTROPHILS % (AUTO) 87.8 % (42-75); PLATELET COUNT 427 X10'3 (140-440); RED BLOOD COUNT 6.18 X10'6 (4.70-6.10); RED CELL DISTRIBUTION WIDTH 17.1 % (11.5-14.5); WHITE BLOOD COUNT 18.8 X10'3 (4.5-11.0)
[2020-08-16 10:58] LABS: ALANINE AMINOTRANSFERASE 25 U/L (12-78); ALBUMIN 3.5 G/DL (3.4-5.0); ALBUMIN/GLOBULIN RATIO 0.9 (1.1-1.5); ALKALINE PHOSPHATASE 83 IU/L (46-116); ANION GAP 7 (8-16); ASPARTATE AMINO TRANSFERASE 19 U/L (10-37); BILIRUBIN,TOTAL 0.4 MG/DL (0.1-1.0); BLOOD UREA NITROGEN 32 MG/DL (7-18); CALCIUM 9.3 MG/DL (8.5-10.1); CHLORIDE 95 MMOL/L (99-107); CREATININE 0.82 MG/DL (0.60-1.10); GLUCOSE 202 MG/DL (70-104); POTASSIUM 4.5 MMOL/L (3.5-5.1); SODIUM 131 MMOL/L (135-145); TOTAL CARBON DIOXIDE 28.6 MMOL/L (24-32); TOTAL PROTEIN 7.2 G/DL (6.4-8.2); eGFR > 90 ML/MIN
[2020-08-16 11:00] VITALS: BP 149/87
--- NOTE | 2020-08-16 12:25 | NUR ---
Paged Dr. Garcia PAGER ID: [phone] MESSAGE: Re: Marek Villegas [id number]. Pt is asking to eat food. Currently on a liquid diet may we advance? Also NS @100ml/hr may we DC. THANK YOU Adela [phone]
--- NOTE | 2020-08-16 14:27 | NUR ---
Paperwork and notes were sent to [place]. Viry the Nurse called to get medications rec and notes were faxed over. Will continue to monitor.
--- NOTE | 2020-08-16 17:29 | NUR ---
Received report on patient with less than an hour left in the shift. Patient in bed offers no complaints, will continue to monitor.
[2020-08-16 18:00] VITALS: BP 130/72
--- NOTE | 2020-08-16 18:18 | NUR ---
Problems reprioritized. Patient report given, questions answered & plan of care reviewed with Jewels CARLOS.
[2020-08-16] MEDS: insulin glargine (Lantus) pen - multi-dose SQ SCH (21:30)
[2020-08-16 22:00] VITALS: BP 93/58
[2020-08-17] MEDS: ipratropium/albuterol 3ml nebule NEB SCH ×7 (00:05→23:03)
[2020-08-17 02:00] VITALS: BP 112/76
[2020-08-17] MEDS: LORazepam 2 mg/ml vial IV PRN ×4 (02:52→20:19)
--- NOTE | 2020-08-17 06:21 | NUR ---
Problems reprioritized. Patient report given, questions answered & plan of care reviewed with Vonnie RN.
[2020-08-17] MEDS: enoxaparin 40mg/0.4ml syringe SUBCUT SCH (07:44)
[2020-08-17] MEDS: aspirin 81mg tab.chew PO SCH (07:44)
[2020-08-17] MEDS: docusate sod 100mg capsule PO SCH ×2 (07:45→20:20)
[2020-08-17] MEDS: predniSONE 20 mg tablet PO SCH (07:45)
[2020-08-17] MEDS: mycophenolate mofetil 250mg capsule PO SCH ×2 (07:45→20:20)
[2020-08-17] MEDS: OMEGA-3/DHA/EPA/FISH OIL 1 EACH CAPSULE.DR PO SCH (07:46)
[2020-08-17] MEDS: PARoxetine 10mg tablet PO SCH (07:46)
[2020-08-17] MEDS: multivitamins, therapeutics tablet PO SCH (07:46)
[2020-08-17] MEDS: pantoprazole 40mg Tablet.DR PO SCH (07:46)
[2020-08-17] MEDS: furosemide 20 MG/2 ML vial IV SCH (07:46)
[2020-08-17] MEDS: gemfibrozil 600mg tablet PO SCH ×2 (07:46→16:12)
[2020-08-17] MEDS: spironolactone 25 MG tablet PO SCH ×2 (07:46→20:19)
[2020-08-17] MEDS: lactose-reduced food (Ensure High Protein) 237ml bottle PO SCH ×3 (07:47→16:12)
[2020-08-17 08:00] VITALS: BP 112/77
[2020-08-17 12:00] VITALS: BP 109/74
[2020-08-17] MEDS: insulin Lispro (HumaLOG) vial - multi-dose SQ SCH ×2 (14:07→20:04)
[2020-08-17 16:00] VITALS: BP 109/75
[2020-08-17 18:00] VITALS: BP 122/66
[2020-08-17] MEDS: insulin glargine (Lantus) pen - multi-dose SQ SCH (21:35)
[2020-08-18] MEDS: LORazepam 2 mg/ml vial IV PRN ×5 (00:07→16:02)
[2020-08-18 02:00] VITALS: BP 121/69
[2020-08-18] MEDS: ipratropium/albuterol 3ml nebule NEB SCH ×6 (03:58→23:01)
[2020-08-18 06:58] VITALS: BP 121/69
[2020-08-18] MEDS: OMEGA-3/DHA/EPA/FISH OIL 1 EACH CAPSULE.DR PO SCH (07:37)
[2020-08-18] MEDS: mycophenolate mofetil 250mg capsule PO SCH ×2 (07:37→20:35)
[2020-08-18] MEDS: gemfibrozil 600mg tablet PO SCH ×2 (07:38→16:02)
[2020-08-18] MEDS: enoxaparin 40mg/0.4ml syringe SUBCUT SCH (07:38)
[2020-08-18] MEDS: furosemide 20 MG/2 ML vial IV SCH (07:39)
[2020-08-18] MEDS: aspirin 81mg tab.chew PO SCH (07:39)
[2020-08-18] MEDS: PARoxetine 10mg tablet PO SCH (07:39)
[2020-08-18] MEDS: pantoprazole 40mg Tablet.DR PO SCH (07:39)
[2020-08-18] MEDS: predniSONE 20 mg tablet PO SCH (07:39)
[2020-08-18] MEDS: spironolactone 25 MG tablet PO SCH ×2 (07:39→20:34)
[2020-08-18] MEDS: multivitamins, therapeutics tablet PO SCH (07:39)
[2020-08-18] MEDS: docusate sod 100mg capsule PO SCH ×2 (07:39→20:34)
[2020-08-18] MEDS: lactose-reduced food (Ensure High Protein) 237ml bottle PO SCH ×3 (07:40→17:54)
[2020-08-18] MEDS: insulin Lispro (HumaLOG) vial - multi-dose SQ SCH ×2 (08:49→19:56)
[2020-08-18 12:00] VITALS: BP 107/67
[2020-08-18 15:47] VITALS: BP 111/65
[2020-08-18 19:00] VITALS: BP 107/71
[2020-08-18] MEDS: insulin glargine (Lantus) pen - multi-dose SQ SCH (21:00)
[2020-08-18 23:00] VITALS: BP 110/75
[2020-08-19] MEDS: ipratropium/albuterol 3ml nebule NEB SCH ×4 (03:18→16:57)
[2020-08-19] MEDS: LORazepam 2 mg/ml vial IV PRN ×3 (03:26→13:12)
--- NOTE | 2020-08-19 06:31 | NUR ---
Problems reprioritized. Patient report given, questions answered & plan of care reviewed with Jewels CARLOS.
--- NOTE | 2020-08-19 06:35 | NUR ---
Patient in room PCU 3012. I have received report from Mathew CARLOS and had the opportunity to ask questions and assume patient care.
[2020-08-19 07:06] VITALS: BP 99/64
[2020-08-19] MEDS: pantoprazole 40mg Tablet.DR PO SCH (07:30)
[2020-08-19] MEDS: spironolactone 25 MG tablet PO SCH (08:00)
[2020-08-19] MEDS: lactose-reduced food (Ensure High Protein) 237ml bottle PO SCH ×2 (08:00→13:49)
[2020-08-19] MEDS: docusate sod 100mg capsule PO SCH (09:02)
[2020-08-19] MEDS: aspirin 81mg tab.chew PO SCH (09:02)
[2020-08-19] MEDS: OMEGA-3/DHA/EPA/FISH OIL 1 EACH CAPSULE.DR PO SCH (09:02)
[2020-08-19] MEDS: furosemide 20 MG/2 ML vial IV SCH (09:02)
[2020-08-19] MEDS: gemfibrozil 600mg tablet PO SCH ×2 (09:02→17:00)
[2020-08-19] MEDS: multivitamins, therapeutics tablet PO SCH (09:02)
[2020-08-19] MEDS: PARoxetine 10mg tablet PO SCH (09:03)
[2020-08-19] MEDS: predniSONE 20 mg tablet PO SCH (09:03)
[2020-08-19] MEDS: mycophenolate mofetil 250mg capsule PO SCH (09:04)
[2020-08-19] MEDS: enoxaparin 40mg/0.4ml syringe SUBCUT SCH (09:04)
[2020-08-19] MEDS: insulin Lispro (HumaLOG) vial - multi-dose SQ SCH ×2 (10:12→13:24)
[2020-08-19 10:22] LABS: BASOPHILS # (AUTO) 0.1 X10'3 (0-0.2); BASOPHILS % (AUTO) 0.5 % (0-1); EOSINOPHILS # (AUTO) 0.4 X10'3 (0-0.9); EOSINOPHILS % (AUTO) 2.1 % (0-6); HEMATOCRIT 45.2 % (42.0-52.0); HEMOGLOBIN 14.7 g/dl (14.0-17.9); LYMPHOCYTES # (AUTO) 3.2 X10'3 (1.1-4.8); LYMPHOCYTES % (AUTO) 19.2 % (21-51); MEAN CORPUSCULAR HEMOGLOBIN 26.4 PG (27.0-31.0); MEAN CORPUSCULAR HGB CONC 32.6 g/dL (33.0-36.5); MEAN CORPUSCULAR VOLUME 80.9 FL (78-98); MONOCYTES # (AUTO) 1.1 X10'3 (0-0.9); MONOCYTES % (AUTO) 6.3 % (2-12); NEUTROPHILS # (AUTO) 12.1 X10'3 (1.8-7.7); NEUTROPHILS % (AUTO) 71.9 % (42-75); PLATELET COUNT 360 X10'3 (140-440); RED BLOOD COUNT 5.59 X10'6 (4.70-6.10); RED CELL DISTRIBUTION WIDTH 16.9 % (11.5-14.5); WHITE BLOOD COUNT 16.9 X10'3 (4.5-11.0)
[2020-08-19 10:38] LABS: ALANINE AMINOTRANSFERASE 25 U/L (12-78); ALBUMIN 3.1 G/DL (3.4-5.0); ALKALINE PHOSPHATASE 82 IU/L (46-116); ANION GAP 9 (8-16); ASPARTATE AMINO TRANSFERASE 16 U/L (10-37); BILIRUBIN,TOTAL 0.3 MG/DL (0.1-1.0); BLOOD UREA NITROGEN 32 MG/DL (7-18); BUN/CREATININE RATIO 43.8 (5.4-32.0); CHLORIDE 100 MMOL/L (99-107); CREATININE 0.73 MG/DL (0.60-1.10); GLUCOSE 151 MG/DL (70-104); POTASSIUM 3.9 MMOL/L (3.5-5.1); SODIUM 137 MMOL/L (135-145); TOTAL CARBON DIOXIDE 27.8 MMOL/L (24-32); TOTAL PROTEIN 6.2 G/DL (6.4-8.2); eGFR > 90 ML/MIN
[2020-08-19 11:00] VITALS: BP 122/87
--- NOTE | 2020-08-19 11:17 | NUR ---
Problems reprioritized. Patient report given, questions answered & plan of care reviewed with BREANNA Villatoro at [facility].
--- NOTE | 2020-08-19 13:36 | NUR ---
Problems reprioritized. Patient report given, questions answered & plan of care reviewed with Fanta CARLOS.
--- NOTE | 2020-08-19 13:49 | NUR ---
received report from garcia merino
--- NOTE | 2020-08-19 14:49 | NUR ---
i reviewed nursing physical assessment of pt and i agree w/previous nurse's physical assessment of pt
--- NOTE | 2020-08-19 15:00 | NUR ---
pt refused vs at this time, continue to educate and monitor pt
--- NOTE | 2020-08-19 17:26 | NUR ---
pt d/c with all belongings accompanied by reach crew [facility]
== END 2020-08-19 17:15 | disposition short-term general hospital (02) | DRG 291 ==
LOC: ER 18:16 → ED HOLD 21:33 → EEVIPCON 21:33 → ICU 2S 23:20 → PCU 3S 08-07 14:14
PROVIDERS: ADMIT Internal Medicine Critical Care Medicine; ATTEND Internal Medicine Critical Care Medicine
PROC: 5A09357 Assistance with Respiratory Ventilation, Less than 24 Consecutive Hours, Continuous Positive Airway Pressure (ICD-10-PCS; principal; 2020-08-01)
PROC: 5A09357 Assistance with Respiratory Ventilation, Less than 24 Consecutive Hours, Continuous Positive Airway Pressure (ICD-10-PCS; 2020-08-02)
PROC: 5A0945A Assistance with Respiratory Ventilation, 24-96 Consecutive Hours, High Flow/Velocity Cannula (ICD-10-PCS; 2020-08-02)
PROC: 5A09357 Assistance with Respiratory Ventilation, Less than 24 Consecutive Hours, Continuous Positive Airway Pressure (ICD-10-PCS; 2020-08-03)
PROC: 5A09357 Assistance with Respiratory Ventilation, Less than 24 Consecutive Hours, Continuous Positive Airway Pressure (ICD-10-PCS; 2020-08-04)
PROC: 5A09357 Assistance with Respiratory Ventilation, Less than 24 Consecutive Hours, Continuous Positive Airway Pressure (ICD-10-PCS; 2020-08-05)
PROC: 5A09357 Assistance with Respiratory Ventilation, Less than 24 Consecutive Hours, Continuous Positive Airway Pressure (ICD-10-PCS; 2020-08-06)
PROC: 5A09357 Assistance with Respiratory Ventilation, Less than 24 Consecutive Hours, Continuous Positive Airway Pressure (ICD-10-PCS; 2020-08-07)
PROC: 5A09357 Assistance with Respiratory Ventilation, Less than 24 Consecutive Hours, Continuous Positive Airway Pressure (ICD-10-PCS; 2020-08-08)
PROC: 5A09357 Assistance with Respiratory Ventilation, Less than 24 Consecutive Hours, Continuous Positive Airway Pressure (ICD-10-PCS; 2020-08-09)
PROC: 5A09357 Assistance with Respiratory Ventilation, Less than 24 Consecutive Hours, Continuous Positive Airway Pressure (ICD-10-PCS; 2020-08-10)
PROC: 5A09357 Assistance with Respiratory Ventilation, Less than 24 Consecutive Hours, Continuous Positive Airway Pressure (ICD-10-PCS; 2020-08-11)
PROC: 5A09357 Assistance with Respiratory Ventilation, Less than 24 Consecutive Hours, Continuous Positive Airway Pressure (ICD-10-PCS; 2020-08-12)
PROC: 5A09357 Assistance with Respiratory Ventilation, Less than 24 Consecutive Hours, Continuous Positive Airway Pressure (ICD-10-PCS; 2020-08-13)
PROC: 5A09357 Assistance with Respiratory Ventilation, Less than 24 Consecutive Hours, Continuous Positive Airway Pressure (ICD-10-PCS; 2020-08-14)
PROC: 5A09357 Assistance with Respiratory Ventilation, Less than 24 Consecutive Hours, Continuous Positive Airway Pressure (ICD-10-PCS; 2020-08-15)
PROC: 5A09357 Assistance with Respiratory Ventilation, Less than 24 Consecutive Hours, Continuous Positive Airway Pressure (ICD-10-PCS; 2020-08-16)
PROC: 5A09357 Assistance with Respiratory Ventilation, Less than 24 Consecutive Hours, Continuous Positive Airway Pressure (ICD-10-PCS; 2020-08-17)
PROC: 5A09357 Assistance with Respiratory Ventilation, Less than 24 Consecutive Hours, Continuous Positive Airway Pressure (ICD-10-PCS; 2020-08-18)
PROC: 5A09357 Assistance with Respiratory Ventilation, Less than 24 Consecutive Hours, Continuous Positive Airway Pressure (ICD-10-PCS; 2020-08-19)
DX: I50.33 Acute on chronic diastolic (congestive) heart failure (principal); J18.9 Pneumonia, unspecified organism; J96.21 Acute and chronic respiratory failure with hypoxia; J44.0 Chronic obstructive pulmonary disease with (acute) lower respiratory infection; J44.1 Chronic obstructive pulmonary disease with (acute) exacerbation; E11.9 Type 2 diabetes mellitus without complications; F41.9 Anxiety disorder, unspecified; E78.5 Hyperlipidemia, unspecified; I45.10 Unspecified right bundle-branch block; J84.10 Pulmonary fibrosis, unspecified; Z20.822 Contact with and (suspected) exposure to COVID-19; Z87.01 Personal history of pneumonia (recurrent); Z87.891 Personal history of nicotine dependence; Z79.899 Other long term (current) drug therapy; Z98.42 Cataract extraction status, left eye; Z98.41 Cataract extraction status, right eye
CPT/HCPCS: 36415; 36600; 71045; 80053; 80202; 82803; 82948; 83036; 83605; 83735; 83880; 84100; 84145; 84484; 85007; 85018; 85025; 85379; 85610; 85730; 87040; 87081; 87502; 87503; 87635; 93005; 94640; 94660; 94760; 96374; 97110; 97116; 97161; 97530; 99291; A7015; C9113; C9803; G0378; J1650; J1815; J1940; J2060; J2270; J2543; J2920; J2930; J3370; J7030; J7512; J7517

== ENCOUNTER 2020-12-19 01:10 | Inpatient (IN) | payer BC ==
[~2020-12-19] VITALS: Ht 162.6 cm; Wt 80.0 kg
[2020-12-19] VITALS (20 sets, daily range): BP systolic 106–179; BP diastolic 54–105
[~2020-12-19 01:10] MED LIST changes: -AZI25OT PO; +PARO10TA4 PO; -PRED20TA PO
[2020-12-19] MEDS ORDERED: morphine 2 MG/ML inj. syringe IV PRN ×2 (01:40→14:45)
[2020-12-19] MEDS ORDERED: morphine 4 MG/ML inj SYRINge IV ONE (01:40)
[2020-12-19] MEDS ORDERED: LORazepam 2 mg/ml vial IV ONE (01:40)
[2020-12-19] MEDS ORDERED: normal saline 1000ML IV soln IVB ONE (01:40)
[2020-12-19] MEDS ORDERED: heparin 25,000 UNIT/250ml bag 250 ML IV SCH ×2 (01:55→15:15)
[2020-12-19] MEDS ORDERED: heparin 10,000 units/1 ML INJ IV ONE ×2 (01:55→02:00)
[2020-12-19 02:36] LABS: BASOPHILS # (AUTO) 0.1 X10'3 (0-0.2); BASOPHILS % (AUTO) 0.7 % (0-1); EOSINOPHILS # (AUTO) 0.1 X10'3 (0-0.9); EOSINOPHILS % (AUTO) 0.7 % (0-6); HEMATOCRIT 36.8 % (42.0-52.0); HEMOGLOBIN 12.4 g/dl (14.0-17.9); LYMPHOCYTES # (AUTO) 0.5 X10'3 (1.1-4.8); LYMPHOCYTES % (AUTO) 4.6 % (21-51); MEAN CORPUSCULAR HEMOGLOBIN 29.2 PG (27.0-31.0); MEAN CORPUSCULAR HGB CONC 33.6 g/dL (33.0-36.5); MEAN PLATELET VOLUME 7.6 FL (7.4-10.4); MONOCYTES # (AUTO) 0.6 X10'3 (0-0.9); MONOCYTES % (AUTO) 5.2 % (2-12); NEUTROPHILS # (AUTO) 10.4 X10'3 (1.8-7.7); NEUTROPHILS % (AUTO) 88.8 % (42-75); PLATELET COUNT 245 X10'3 (140-440); RED BLOOD COUNT 4.23 X10'6 (4.70-6.10); RED CELL DISTRIBUTION WIDTH 16.4 % (11.5-14.5); WHITE BLOOD COUNT 11.7 X10'3 (4.5-11.0)
[2020-12-19] MEDS ORDERED: heparin 1,000 UNITS/NS 500ml 500 ML IV SCH (02:45)
[2020-12-19 02:47] LABS: ALANINE AMINOTRANSFERASE 24 U/L (12-78); ALBUMIN 2.6 G/DL (3.4-5.0); ALBUMIN/GLOBULIN RATIO 0.7 (1.1-1.5); ALKALINE PHOSPHATASE 80 IU/L (46-116); ANION GAP 9 (8-16); ASPARTATE AMINO TRANSFERASE 26 U/L (10-37); BILIRUBIN,TOTAL 0.8 MG/DL (0.1-1.0); BLOOD UREA NITROGEN 49 MG/DL (7-18); BUN/CREATININE RATIO 46.7 (5.4-32.0); CALCIUM 8.1 MG/DL (8.5-10.1); CHLORIDE 103 MMOL/L (99-107); CREATININE 1.05 MG/DL (0.60-1.10); GLUCOSE 168 MG/DL (70-104); PARTIAL THROMBOPLASTIN TIME 28 SECONDS (22-32); POTASSIUM 4.3 MMOL/L (3.5-5.1); SODIUM 138 MMOL/L (135-145); TOTAL PROTEIN 6.1 G/DL (6.4-8.2); eGFR 72 ML/MIN
[2020-12-19] MEDS ORDERED: fentaNYL/PF 50MCG/1 ML 2ML syringe ONE ×2 (02:51→13:56)
[2020-12-19] MEDS ORDERED: midazolam 1 mg/ML 2ml injection ONE ×2 (02:51→18:31)
[2020-12-19] MEDS ORDERED: LIDOcaine 1%/PF 5ML 10 MG/ML VIAL ONE (02:51)
[2020-12-19] MEDS ORDERED: heparin 1,000 UNITS/NS 500ml 500 ML ONE ×3 (02:52→13:58)
[2020-12-19] MEDS ORDERED: iohexol 300mg/ml 100ml inj. ONE ×3 (02:52→13:58)
[2020-12-19] MEDS ORDERED: heparin 25,000 UNIT/250ml bag 250 ML IV ONE ×2 (04:11→14:16)
[2020-12-19 04:47] LABS: ETHANOL < 0.010 GM/DL (0.0-0.010)
[2020-12-19] MEDS: tPA-cathflo 2mg/2ml IV flush 4 MG in normal saline 100ml IV soln 100 ML ICATH SCH ×6 (05:00→20:15)
--- NOTE | 2020-12-19 05:11 | NUR ---
Received report from IR RN, awaiting arrival of patient.
--- NOTE | 2020-12-19 06:00 | NUR ---
Patient in room ICU 2042. I have received report from Sadaf CARLOS and had the opportunity to ask questions and assume patient care.
[2020-12-19] MEDS ORDERED: HYDROmorphone inj. 0.5 MG/0.5 ML DISP.SYRIN IV PRN (06:05)
[2020-12-19] MEDS: ringers solution, lacted 1,000 ML IV SCH ×2 (06:15→15:01)
[2020-12-19] MEDS: dexmedetomidine/D5W 100mL 100 ML IV SCH ×2 (06:15→12:45)
--- NOTE | 2020-12-19 06:18 | NUR ---
Problems reprioritized. Patient report given, questions answered & plan of care reviewed with BREANNA Mccarthy.
[2020-12-19] MEDS: mycophenolate mofetil 250mg capsule PO SCH ×2 (07:00→16:00)
[2020-12-19] MEDS: tacrolimus anhydrous 0.5mg capsule PO SCH ×2 (08:00→20:00)
[2020-12-19] MEDS: PARoxetine 10mg tablet PO SCH (08:00)
[2020-12-19 08:31] LABS: ABG BASE EXCESS -1.2 mmol/L (-2.0-2.0); ABG HCO3 24.2 mmol/L (22.0-26.0); ABG OXYGEN SATURATION 96.2 % (94-97); ABG PCO2 (T) 43.2 mmHg (35.0-48.0); ABG PO2 (T) 90.2 mmHg (75.0-100.0); ALLEN'S TEST POSITIVE; FCOHb 0.3 % (0.0-3.9); FLOW 2 L/min; FMetHb 0.2 % (0.0-1.5); FO2Hb 95.7 % (94-97); TOTAL HEMOGLOBIN 12.3 G/dl (14.0-18.0)
[2020-12-19] MEDS ORDERED: heparin 10,000 units/1 ML INJ ONE (14:32)
[2020-12-19] MEDS ORDERED: LIDOcaine 1% (10mg/ml) 2ml vial ONE (14:33)
[2020-12-19] MEDS ORDERED: meperidine/PF 25mg/ml syringe IV PRN ×3 (14:45)
[2020-12-19] MEDS ORDERED: ringers solution, lacted 1,000 ML IV SCH (14:45)
[2020-12-19] MEDS ORDERED: proCHLORperazine 10 MG/2 ml inj IV PRN (14:45)
[2020-12-19] MEDS ORDERED: ondansetron/PF 4mg/2ml inj IV PRN (14:45)
[2020-12-19] MEDS ORDERED: heparin 10,000 units/1 ML INJ IV PRN (15:15)
--- NOTE | 2020-12-19 15:22 | NUR ---
Received report from Angio nurse Brittni CARLOS. Per Dr. Messer pt on heparin drip at 1000 until patient goes to OR.
--- NOTE | 2020-12-19 15:55 | NUR ---
PAGE SENT TO ECHO FOR PRE-OP ECHO.
[2020-12-19] MEDS ORDERED: ceFAZolin/D5W- 1GM premix 50 ML IV SCH (16:00)
--- NOTE | 2020-12-19 16:30 | NUR ---
Spoke with OR charge asking about Ancef on whether it was supposed to be given in OR or not. Charge stated to send ancef with pt when they go to OR.
--- NOTE | 2020-12-19 17:00 | NUR ---
Spoke with Dr. Tai regarding pt unable to get labs drawn due to TPA being given per lab, has no line for lab draws. stated to have OR place line when he goes to OR.
[2020-12-19 17:16] LABS: HEMATOCRIT 35.8 % (42.0-52.0); HEMOGLOBIN 11.9 g/dl (14.0-17.9); MEAN CORPUSCULAR HEMOGLOBIN 29.2 PG (27.0-31.0); MEAN CORPUSCULAR HGB CONC 33.4 g/dL (33.0-36.5); MEAN CORPUSCULAR VOLUME 87.6 FL (78-98); MEAN PLATELET VOLUME 7.7 FL (7.4-10.4); PLATELET COUNT 219 X10'3 (140-440); RED BLOOD COUNT 4.08 X10'6 (4.70-6.10); RED CELL DISTRIBUTION WIDTH 16.2 % (11.5-14.5); WHITE BLOOD COUNT 7.6 X10'3 (4.5-11.0)
--- NOTE | 2020-12-19 18:26 | NUR ---
Problems reprioritized. Patient report given, questions answered & plan of care reviewed with Norma CARLOS.
[2020-12-19] MEDS ORDERED: sevoflurane 250ml liquid IH ONE (18:27)
[2020-12-19] MEDS ORDERED: cefazolin/dext.iso 2gm/100ml BAG IV ONE (18:27)
[2020-12-19] MEDS ORDERED: etomidate 2mg/ml inj. ONE (18:27)
[2020-12-19] MEDS ORDERED: fentaNYL /PF 50mcg/ml 5ml ampule ONE (18:32)
[2020-12-19] MEDS ORDERED: dexamethasone sod phosphate 4mg/ml inj. ONE (19:05)
[2020-12-19] MEDS ORDERED: ondansetron/PF 4mg/2ml inj ONE (19:05)
[2020-12-19] MEDS ORDERED: rocuronium 10mg/ml inj IV ONE (19:06)
[2020-12-19] MEDS ORDERED: iohexol 300 MG/1 ML 50ml polymer ONE ×2 (19:20→20:34)
[2020-12-19] MEDS ORDERED: ceFAZolin 1000mg inj ONE (19:23)
[2020-12-19] MEDS ORDERED: heparin 1,000unit/ml 10ml vial 10 ML ONE (19:39)
[2020-12-19] MEDS ORDERED: albumin (Human) 5% 250ml 250 ML IV ONE (21:37)
[2020-12-19] MEDS ORDERED: acetaminophen 1,000mg/100ml IV 100 ML IV ONE (21:44)
--- NOTE | 2020-12-19 22:00 | NUR ---
RN Note -Received pt from OR, Awake and answering questions, in pain, checked pulses
[2020-12-19] MEDS: morphine 4 MG/ML inj SYRINge IV PRN ×2 (22:02→22:33)
[2020-12-19 22:30] LABS: BASOPHILS % (AUTO) 0.4 % (0-1); EOSINOPHILS # (AUTO) 0.1 X10'3 (0-0.9); EOSINOPHILS % (AUTO) 1.2 % (0-6); HEMATOCRIT 36.8 % (42.0-52.0); HEMOGLOBIN 12.1 g/dl (14.0-17.9); LYMPHOCYTES # (AUTO) 0.5 X10'3 (1.1-4.8); LYMPHOCYTES % (AUTO) 6.1 % (21-51); MEAN CORPUSCULAR HEMOGLOBIN 29.4 PG (27.0-31.0); MEAN CORPUSCULAR HGB CONC 32.9 g/dL (33.0-36.5); MEAN CORPUSCULAR VOLUME 89.1 FL (78-98); MEAN PLATELET VOLUME 7.9 FL (7.4-10.4); MONOCYTES # (AUTO) 0.3 X10'3 (0-0.9); MONOCYTES % (AUTO) 3.5 % (2-12); NEUTROPHILS # (AUTO) 7.9 X10'3 (1.8-7.7); NEUTROPHILS % (AUTO) 88.8 % (42-75); PLATELET COUNT 235 X10'3 (140-440); RED BLOOD COUNT 4.13 X10'6 (4.70-6.10); RED CELL DISTRIBUTION WIDTH 16.3 % (11.5-14.5); WHITE BLOOD COUNT 8.9 X10'3 (4.5-11.0)
[2020-12-19 22:31] LABS: ALBUMIN 2.6 G/DL (3.4-5.0); ANION GAP 10 (8-16); BLOOD UREA NITROGEN 31 MG/DL (7-18); BUN/CREATININE RATIO 35.6 (5.4-32.0); CALCIUM 7.6 MG/DL (8.5-10.1); CHLORIDE 107 MMOL/L (99-107); CREATININE 0.87 MG/DL (0.60-1.10); GLUCOSE 169 MG/DL (70-104); POTASSIUM 5.2 MMOL/L (3.5-5.1); SODIUM 141 MMOL/L (135-145); TOTAL CARBON DIOXIDE 24.2 MMOL/L (24-32); eGFR 90 ML/MIN
[2020-12-19 22:35] LABS: PARTIAL THROMBOPLASTIN TIME 74 SECONDS (22-32)
[2020-12-19] MEDS: HYDROmorphone 1 mg/ml syringe IV PRN (22:44)
[2020-12-19] MEDS: ceFAZolin/D5W- 1GM premix 50 ML IV SCH (23:44)
[2020-12-20] VITALS (25 sets, daily range): BP systolic 99–136; BP diastolic 62–92
[2020-12-20] MEDS: ringers solution, lacted 1,000 ML IV SCH (02:05)
[2020-12-20] MEDS: tPA-cathflo 2mg/2ml IV flush 4 MG in normal saline 100ml IV soln 100 ML ICATH SCH ×2 (02:45→04:15)
[2020-12-20 03:31] LABS: BASOPHILS % (AUTO) 0.5 % (0-1); EOSINOPHILS % (AUTO) 0.4 % (0-6); HEMATOCRIT 34.6 % (42.0-52.0); HEMOGLOBIN 11.5 g/dl (14.0-17.9); LYMPHOCYTES # (AUTO) 0.4 X10'3 (1.1-4.8); LYMPHOCYTES % (AUTO) 4.8 % (21-51); MEAN CORPUSCULAR HEMOGLOBIN 29.5 PG (27.0-31.0); MEAN CORPUSCULAR HGB CONC 33.4 g/dL (33.0-36.5); MEAN CORPUSCULAR VOLUME 88.4 FL (78-98); MEAN PLATELET VOLUME 7.9 FL (7.4-10.4); MONOCYTES # (AUTO) 0.4 X10'3 (0-0.9); MONOCYTES % (AUTO) 5.4 % (2-12); NEUTROPHILS # (AUTO) 7.1 X10'3 (1.8-7.7); NEUTROPHILS % (AUTO) 88.9 % (42-75); PLATELET COUNT 246 X10'3 (140-440); RED BLOOD COUNT 3.91 X10'6 (4.70-6.10); RED CELL DISTRIBUTION WIDTH 16.8 % (11.5-14.5)
[2020-12-20 03:58] LABS: ALANINE AMINOTRANSFERASE 66 U/L (12-78); ALBUMIN 2.4 G/DL (3.4-5.0); ALBUMIN/GLOBULIN RATIO 0.9 (1.1-1.5); ALKALINE PHOSPHATASE 64 IU/L (46-116); ANION GAP 9 (8-16); ASPARTATE AMINO TRANSFERASE 243 U/L (10-37); BILIRUBIN,TOTAL 0.6 MG/DL (0.1-1.0); BLOOD UREA NITROGEN 32 MG/DL (7-18); BUN/CREATININE RATIO 35.2 (5.4-32.0); CALCIUM 7.6 MG/DL (8.5-10.1); CHLORIDE 107 MMOL/L (99-107); CREATININE 0.91 MG/DL (0.60-1.10); GLUCOSE 174 MG/DL (70-104); POTASSIUM 5.3 MMOL/L (3.5-5.1); SODIUM 142 MMOL/L (135-145); TOTAL CARBON DIOXIDE 25.7 MMOL/L (24-32); TOTAL PROTEIN 5.2 G/DL (6.4-8.2); eGFR 85 ML/MIN
[2020-12-20] MEDS: HYDROmorphone 1 mg/ml syringe IV PRN ×2 (04:21→18:43)
[2020-12-20] MEDS: dexmedetomidine/D5W 100mL 100 ML IV SCH ×2 (04:21→19:35)
[2020-12-20] MEDS ORDERED: glucagon, human recombinant 1mg kit SUBCUT PRN (04:35)
[2020-12-20] MEDS ORDERED: dextrose 50%-water 50ml dispensing syringe IV PRN ×2 (04:35)
[2020-12-20] MEDS ORDERED: MESSAGE TO PHARMACY PO ONE (04:35)
[2020-12-20] MEDS ORDERED: dextrose ORAL solution 15 GM/59 ML bottle PO PRN ×2 (04:35)
[2020-12-20] MEDS ORDERED: insulin Lispro (HumaLOG) vial - multi-dose SQ SCH (04:35)
[2020-12-20 06:57] LABS: HEMOGLOBIN A1C 7.1 % (4.5-6.2)
[2020-12-20] MEDS: tacrolimus anhydrous 0.5mg capsule PO SCH (08:00)
[2020-12-20] MEDS: PARoxetine 10mg tablet PO SCH (08:00)
[2020-12-20] MEDS: mycophenolate mofetil 250mg capsule PO SCH ×2 (08:20→17:03)
[2020-12-20] MEDS: ceFAZolin/D5W- 1GM premix 50 ML IV SCH (09:00)
[2020-12-20] MEDS ORDERED: PRED10TA PO (10:21)
[2020-12-20] MEDS ORDERED: METO25TA6 PO (10:21)
[2020-12-20] MEDS ORDERED: VALG450T4 PO (10:21)
[2020-12-20] MEDS ORDERED: PANT40TA54 PO (10:21)
[2020-12-20] MEDS ORDERED: SERT-432 PO (10:21)
[2020-12-20] MEDS ORDERED: TRAZ-251 PO (10:21)
[2020-12-20] MEDS ORDERED: HYDR-3686 PO (10:21)
[2020-12-20] MEDS ORDERED: FURO20TA4 PO (10:21)
[2020-12-20] MEDS ORDERED: GLIP5TAB13 PO (10:21)
[2020-12-20] MEDS ORDERED: WARF1TAB83 PO (10:21)
[2020-12-20] MEDS ORDERED: NYST1000 PO (10:21)
[2020-12-20] MEDS ORDERED: ITRA10SO2 PO (10:21)
[2020-12-20] MEDS ORDERED: TACR0.5C3 PO (10:23)
[2020-12-20] MEDS ORDERED: MYCO250C PO (10:23)
--- NOTE | 2020-12-20 11:16 | NUR ---
DM Consult: Pt admit DX critical lower limb ischemia, pulmonary fibrosis, and acute renal failure w/ hx DM A1C 7.1 and bilateral lung transplant per EMR. Pt s/p 4-way fasciotomy this admit advanced to carb controlled diet post-op w/ PO pending. Pt would benefit from written/verbal DM/high protein eds prior to discharge this admit. No BM yet though just admit yesterday. Will monitor for PO hx and additional protein/kcal/ONS needs post-op. Addendum: 12/20/20 at [address] Amended: Links added.
[2020-12-20] MEDS ORDERED: LIDOcaine 1%/PF 5ML 10 MG/ML VIAL ONE (11:20)
--- NOTE | 2020-12-20 12:54 | NUR ---
spoke with dr. quintero at 1030. Stopped heparin gtt per md order. IR removed arterial sheath at noon. No hematoma or bleeding noted. Pulses palpable.
[2020-12-20] MEDS: tacrolimus anhydrous 1mg capsule PO SCH (20:56)
[2020-12-20] MEDS ORDERED: warfarin 5mg tablet PO ONE (21:00)
[2020-12-20] MEDS: insulin glargine (Lantus) pen - multi-dose SQ SCH (21:00)
[2020-12-21] VITALS (24 sets, daily range): BP systolic 98–136; BP diastolic 69–95
[2020-12-21] MEDS: HYDROmorphone 1 mg/ml syringe IV PRN ×5 (01:03→20:33)
--- NOTE | 2020-12-21 02:00 | NUR ---
RN Note -wet to dry dressing performed. Minimal bleeding. Pt tolerated well.
--- NOTE | 2020-12-21 05:00 | NUR ---
Faxed paperwork to transfer center
[2020-12-21 06:08] LABS: BASOPHILS # (AUTO) 0.1 X10'3 (0-0.2); EOSINOPHILS # (AUTO) 0.2 X10'3 (0-0.9); EOSINOPHILS % (AUTO) 2.5 % (0-6); HEMATOCRIT 32.4 % (42.0-52.0); HEMOGLOBIN 10.9 g/dl (14.0-17.9); LYMPHOCYTES # (AUTO) 0.8 X10'3 (1.1-4.8); LYMPHOCYTES % (AUTO) 13.5 % (21-51); MEAN CORPUSCULAR HEMOGLOBIN 29.6 PG (27.0-31.0); MEAN CORPUSCULAR HGB CONC 33.7 g/dL (33.0-36.5); MEAN PLATELET VOLUME 7.8 FL (7.4-10.4); MONOCYTES # (AUTO) 0.4 X10'3 (0-0.9); MONOCYTES % (AUTO) 6.3 % (2-12); NEUTROPHILS # (AUTO) 4.7 X10'3 (1.8-7.7); NEUTROPHILS % (AUTO) 76.7 % (42-75); PLATELET COUNT 250 X10'3 (140-440); RED BLOOD COUNT 3.68 X10'6 (4.70-6.10); RED CELL DISTRIBUTION WIDTH 16.2 % (11.5-14.5); WHITE BLOOD COUNT 6.2 X10'3 (4.5-11.0)
[2020-12-21 06:27] LABS: ALANINE AMINOTRANSFERASE 75 U/L (12-78); ALBUMIN 2.2 G/DL (3.4-5.0); ALBUMIN/GLOBULIN RATIO 0.8 (1.1-1.5); ANION GAP 7 (8-16); ASPARTATE AMINO TRANSFERASE 224 U/L (10-37); BILIRUBIN,TOTAL 0.4 MG/DL (0.1-1.0); BLOOD UREA NITROGEN 19 MG/DL (7-18); CALCIUM 8.1 MG/DL (8.5-10.1); CHLORIDE 104 MMOL/L (99-107); CREATININE 0.76 MG/DL (0.60-1.10); GLUCOSE 131 MG/DL (70-104); POTASSIUM 4.1 MMOL/L (3.5-5.1); SODIUM 140 MMOL/L (135-145); TOTAL CARBON DIOXIDE 29.5 MMOL/L (24-32); eGFR > 90 ML/MIN
[2020-12-21 06:28] LABS: ALKALINE PHOSPHATASE 57 IU/L (46-116)
--- NOTE | 2020-12-21 06:43 | NUR ---
Patient in room CICU 2013. I have received report from Norma CARLOS and had the opportunity to ask questions and assume patient care.
[2020-12-21] MEDS: mycophenolate mofetil 250mg capsule PO SCH ×2 (07:24→20:38)
[2020-12-21] MEDS: tacrolimus anhydrous 1mg capsule PO SCH (07:24)
[2020-12-21] MEDS: PARoxetine 10mg tablet PO SCH (07:24)
[2020-12-21] MEDS: dexmedetomidine/D5W 100mL 100 ML IV SCH (07:57)
[2020-12-21] MEDS: aspirin 81mg tab.chew PO SCH (08:00)
[2020-12-21 10:02] LABS: HEMATOCRIT 32.6 % (42.0-52.0); HEMOGLOBIN 10.9 g/dl (14.0-17.9); MEAN CORPUSCULAR HEMOGLOBIN 29.4 PG (27.0-31.0); MEAN CORPUSCULAR HGB CONC 33.4 g/dL (33.0-36.5); MEAN CORPUSCULAR VOLUME 88.1 FL (78-98); PLATELET COUNT 255 X10'3 (140-440); RED CELL DISTRIBUTION WIDTH 15.8 % (11.5-14.5); WHITE BLOOD COUNT 6.6 X10'3 (4.5-11.0)
[2020-12-21] MEDS ORDERED: hydrOXYzine 25 MG tablet PO PRN (11:00)
[2020-12-21] MEDS ORDERED: traZODone 50mg tablet PO PRN (11:00)
[2020-12-21] MEDS ORDERED: mycophenolate mofetil 250mg capsule PO SCH (11:06)
[2020-12-21] MEDS ORDERED: metoprolol tartrate 25mg tablet PO SCH (11:07)
[2020-12-21] MEDS ORDERED: mycophenolate mofetil 250mg capsule PO ONE (11:15)
[2020-12-21] MEDS: nystatin 500,000 unit/5ML UD oral suspension PO SCH ×2 (12:27→20:38)
[2020-12-21] MEDS ORDERED: LIDOcaine 1% (10mg/ml) 2ml vial ONE (14:57)
[2020-12-21 16:51] LABS: HEMATOCRIT 36.5 % (42.0-52.0); HEMOGLOBIN 11.9 g/dl (14.0-17.9); MEAN CORPUSCULAR HEMOGLOBIN 29.7 PG (27.0-31.0); MEAN CORPUSCULAR HGB CONC 32.6 g/dL (33.0-36.5); MEAN CORPUSCULAR VOLUME 91.1 FL (78-98); MEAN PLATELET VOLUME 7.5 FL (7.4-10.4); PLATELET COUNT 223 X10'3 (140-440); WHITE BLOOD COUNT 6.2 X10'3 (4.5-11.0)
--- NOTE | 2020-12-21 17:21 | NUR ---
Attempted to insert 18g extended PIV to the left basilic ans brachial veins without success. Pt agreeabloe to a 20g jelco to the right forearm however, he insisted I stop so I stopped. Shari CARLOS notified.
--- NOTE | 2020-12-21 18:24 | NUR ---
Problems reprioritized. Patient report given, questions answered & plan of care reviewed with Norma CARLOS.
[2020-12-21] MEDS: ITRACONAZOLE PO SCH (20:00)
[2020-12-21] MEDS: pantoprazole 40mg Tablet.DR PO SCH (20:29)
[2020-12-21] MEDS: metoprolol tartrate 12.5mg (1/2 tablet) PO SCH (20:30)
[2020-12-21] MEDS: furosemide 20MG tablet PO SCH (20:31)
[2020-12-21] MEDS: tacrolimus anhydrous 0.5mg capsule PO SCH (20:36)
[2020-12-21] MEDS: enoxaparin 80mg/0.8ml syringe SUBCUT SCH (20:39)
[2020-12-21] MEDS: insulin glargine (Lantus) pen - multi-dose SQ SCH (20:41)
[2020-12-21] MEDS ORDERED: warfarin 5mg tablet PO ONE (21:00)
--- NOTE | 2020-12-21 23:44 | NUR ---
Patient in room CICU 2013. I have received report from Norma Clarke RN and had the opportunity to ask questions and assume patient care.
[2020-12-22] VITALS (18 sets, daily range): BP systolic 94–141; BP diastolic 55–88
--- NOTE | 2020-12-22 03:20 | NUR ---
RN Note -wet to dry dressing performed. Minimal bleeding. Pt tolerated well.
[2020-12-22 03:32] LABS: BASOPHILS # (AUTO) 0.1 X10'3 (0-0.2); BASOPHILS % (AUTO) 1.1 % (0-1); EOSINOPHILS # (AUTO) 0.2 X10'3 (0-0.9); EOSINOPHILS % (AUTO) 2.6 % (0-6); HEMATOCRIT 32.5 % (42.0-52.0); HEMOGLOBIN 10.8 g/dl (14.0-17.9); LYMPHOCYTES # (AUTO) 0.8 X10'3 (1.1-4.8); MEAN CORPUSCULAR HEMOGLOBIN 29.3 PG (27.0-31.0); MEAN CORPUSCULAR HGB CONC 33.1 g/dL (33.0-36.5); MEAN CORPUSCULAR VOLUME 88.4 FL (78-98); MONOCYTES # (AUTO) 0.4 X10'3 (0-0.9); MONOCYTES % (AUTO) 5.6 % (2-12); NEUTROPHILS # (AUTO) 5.1 X10'3 (1.8-7.7); NEUTROPHILS % (AUTO) 78.7 % (42-75); PLATELET COUNT 282 X10'3 (140-440); RED BLOOD COUNT 3.68 X10'6 (4.70-6.10); RED CELL DISTRIBUTION WIDTH 16.1 % (11.5-14.5); WHITE BLOOD COUNT 6.5 X10'3 (4.5-11.0)
[2020-12-22 03:42] LABS: ALANINE AMINOTRANSFERASE 55 U/L (12-78); ALBUMIN 2.1 G/DL (3.4-5.0); ALBUMIN/GLOBULIN RATIO 0.7 (1.1-1.5); ALKALINE PHOSPHATASE 56 IU/L (46-116); ANION GAP 4 (8-16); ASPARTATE AMINO TRANSFERASE 138 U/L (10-37); BILIRUBIN,TOTAL 0.4 MG/DL (0.1-1.0); BLOOD UREA NITROGEN 13 MG/DL (7-18); BUN/CREATININE RATIO 21.3 (5.4-32.0); CALCIUM 7.9 MG/DL (8.5-10.1); CHLORIDE 102 MMOL/L (99-107); CREATININE 0.61 MG/DL (0.60-1.10); GLUCOSE 109 MG/DL (70-104); POTASSIUM 4.1 MMOL/L (3.5-5.1); SODIUM 139 MMOL/L (135-145); TOTAL CARBON DIOXIDE 32.9 MMOL/L (24-32); TOTAL PROTEIN 5.1 G/DL (6.4-8.2); eGFR > 90 ML/MIN
--- NOTE | 2020-12-22 05:00 | NUR ---
RN Note Hamilton catheter removed per protocol. Pt tolerated well.
[2020-12-22] MEDS: HYDROmorphone 1 mg/ml syringe IV PRN ×4 (05:03→18:34)
--- NOTE | 2020-12-22 06:37 | NUR ---
Patient in room CICU 2013. I have received report from Norma CARLOS and had the opportunity to ask questions and assume patient care.
[2020-12-22 07:07] LABS: ANISOCYTOSIS 1+; PLATELET ESTIMATE NORMAL; TOTAL CELLS COUNTED 100
[2020-12-22] MEDS: ITRACONAZOLE PO SCH (07:16)
[2020-12-22] MEDS: metoprolol tartrate 12.5mg (1/2 tablet) PO SCH (07:23)
[2020-12-22] MEDS: nystatin 500,000 unit/5ML UD oral suspension PO SCH ×2 (07:23→13:22)
[2020-12-22] MEDS: tacrolimus anhydrous 0.5mg capsule PO SCH (07:23)
[2020-12-22] MEDS: enoxaparin 80mg/0.8ml syringe SUBCUT SCH (07:23)
[2020-12-22] MEDS: mycophenolate mofetil 250mg capsule PO SCH (07:26)
[2020-12-22] MEDS: furosemide 20MG tablet PO SCH (07:26)
[2020-12-22] MEDS: pantoprazole 40mg Tablet.DR PO SCH (07:26)
[2020-12-22] MEDS: aspirin 81mg tab.chew PO SCH (07:28)
[2020-12-22] MEDS ORDERED: sertraline 25mg tablet PO SCH (08:00)
[2020-12-22] MEDS ORDERED: multivitamins, therapeutics tablet PO SCH (08:00)
[2020-12-22] MEDS ORDERED: predniSONE 20 mg tablet PO SCH (08:00)
[2020-12-22] MEDS ORDERED: glipizide 5mg tablet PO SCH (08:00)
--- NOTE | 2020-12-22 16:00 | NUR ---
Called to give report to pt going to room 3010. Nurse unavailable at the moment and will call back.
--- NOTE | 2020-12-22 16:40 | NUR ---
Patient in room PCU 3010. I have received report from Shari CARLOS and had the opportunity to ask questions and assume patient care.
--- NOTE | 2020-12-22 16:43 | NUR ---
Problems reprioritized. Patient report given, questions answered & plan of care reviewed with Coby RN. Patient transferred to room 3010 with all belongings.
--- NOTE | 2020-12-22 18:20 | NUR ---
Flight RN Jason and crew arrived. Gave report to Jason CARLOS who assumed care of pt. Pt complaint of pain in LLE - treated with dilaudid prior to transport. Assisted pt up to BSC to try to have BM. Pt just voided. Answered all questions and POC discussed.
== END 2020-12-22 18:45 | disposition short-term general hospital (02) | DRG 271 ==
LOC: ER 01:11 → ICU 2S 05:35 → CICU 2S 12-20 19:10 → PCU 3S 12-22 16:32
PROVIDERS: ADMIT Internal Medicine; ATTEND Internal Medicine
PROC: 04CJ0ZZ Extirpation of Matter from Left External Iliac Artery, Open Approach (ICD-10-PCS; 2020-12-19)
PROC: 04CF0ZZ Extirpation of Matter from Left Internal Iliac Artery, Open Approach (ICD-10-PCS; 2020-12-19)
PROC: 04CN0ZZ Extirpation of Matter from Left Popliteal Artery, Open Approach (ICD-10-PCS; 2020-12-19)
PROC: 04CQ0ZZ Extirpation of Matter from Left Anterior Tibial Artery, Open Approach (ICD-10-PCS; 2020-12-19)
PROC: 04CU0ZZ Extirpation of Matter from Left Peroneal Artery, Open Approach (ICD-10-PCS; 2020-12-19)
PROC: 0J8P0ZZ Division of Left Lower Leg Subcutaneous Tissue and Fascia, Open Approach (ICD-10-PCS; 2020-12-19)
PROC: B41G1ZZ Fluoroscopy of Left Lower Extremity Arteries using Low Osmolar Contrast (ICD-10-PCS; 2020-12-19)
PROC: 3E05317 Introduction of Other Thrombolytic into Peripheral Artery, Percutaneous Approach (ICD-10-PCS; 2020-12-19)
PROC: 04CD0ZZ Extirpation of Matter from Left Common Iliac Artery, Open Approach (ICD-10-PCS; principal; 2020-12-19 18:27)
PROC: 02HV33Z Insertion of Infusion Device into Superior Vena Cava, Percutaneous Approach (ICD-10-PCS; 2020-12-22)
DX: E11.51 Type 2 diabetes mellitus with diabetic peripheral angiopathy without gangrene (principal); Z94.2 Lung transplant status; J44.1 Chronic obstructive pulmonary disease with (acute) exacerbation; N17.9 Acute kidney failure, unspecified; I82.402 Acute embolism and thrombosis of unspecified deep veins of left lower extremity; R06.03 Acute respiratory distress; E78.00 Pure hypercholesterolemia, unspecified; I50.9 Heart failure, unspecified; Z20.822 Contact with and (suspected) exposure to COVID-19; J84.10 Pulmonary fibrosis, unspecified; Z79.899 Other long term (current) drug therapy; Z79.82 Long term (current) use of aspirin
CPT/HCPCS: 36247; 93306; 96374; 96375; 99291; Z7506; Z7508; 36415; 36600; 37211; 37214; 71045; 73560; 75710; 76000; 76937; 80048; 80053; 80320; 82803; 82948; 83036; 85007; 85018; 85025; 85027; 85610; 85730; 86885; 86900; 86901; 86920; 87081; 87635; 93005; 93926; 97116; 97161; 97530; A4618; A6213; A6446; A6449; A6455; A7000; C1729; C1751; C1757; C1758; C1760; C1769; C1894; G0378; J0131; J0690; J1100; J1170; J1644; J1650; J1815; J2001; J2060; J2250; J2270; J2405; J2997; J3010; J7030; J7040; J7120; J7507; J7512; J7517; P9045; Q9967

== ENCOUNTER → 2021-03-06 | Outpatient (CLI) | payer BC ==
[~2021-03-06] MED LIST changes: -ALBU18HF2 IH; -ASPI-611 PO; +FURO20TA4 PO; -GEMF600T89 PO; +GLIP5TAB13 PO; +HYDR-3686 PO; -HYDR25TA4 PO; +ITRA10SO2 PO; +METO25TA6 PO; +MYCO250C PO; -MYCO500T5 PO; +NYST1000 PO; -OMEG-79 PO; +PANT40TA54 PO; -PARO10TA4 PO; +PRED10TA PO; +SERT-432 PO; +TACR0.5C3 PO; +TRAZ-251 PO; +VALG450T4 PO
== END | disposition home or self-care (01) ==
LOC: VAS 10:14
PROVIDERS: ATTEND Surgery
DX: I77.1 Stricture of artery (principal); Z98.890 Other specified postprocedural states
CPT/HCPCS: 93922; 93926

== ENCOUNTER 2021-03-12 12:53 | Emergency (ER) | payer BC ==
[~2021-03-12] VITALS: Ht 162.6 cm; Wt 72.7 kg
[2021-03-12 13:35] LABS: BASOPHILS # (AUTO) 0.1 X10'3 (0-0.2); BASOPHILS % (AUTO) 1.2 % (0-1); EOSINOPHILS # (AUTO) 0.1 X10'3 (0-0.9); EOSINOPHILS % (AUTO) 2.4 % (0-6); HEMATOCRIT 37.5 % (42.0-52.0); HEMOGLOBIN 11.6 g/dl (14.0-17.9); LYMPHOCYTES # (AUTO) 0.7 X10'3 (1.1-4.8); LYMPHOCYTES % (AUTO) 15.5 % (21-51); MEAN CORPUSCULAR HEMOGLOBIN 22.3 PG (27.0-31.0); MEAN CORPUSCULAR HGB CONC 30.9 g/dL (33.0-36.5); MEAN PLATELET VOLUME 8.1 FL (7.4-10.4); MONOCYTES # (AUTO) 0.3 X10'3 (0-0.9); NEUTROPHILS # (AUTO) 3.6 X10'3 (1.8-7.7); NEUTROPHILS % (AUTO) 74.9 % (42-75); PLATELET COUNT 457 X10'3 (140-440); RED CELL DISTRIBUTION WIDTH 18.8 % (11.5-14.5); WHITE BLOOD COUNT 4.8 X10'3 (4.5-11.0)
[2021-03-12 14:02] LABS: ALANINE AMINOTRANSFERASE 53 U/L (12-78); ALBUMIN 3.4 G/DL (3.4-5.0); ALBUMIN/GLOBULIN RATIO 1.2 (1.1-1.5); ALKALINE PHOSPHATASE 100 IU/L (46-116); ANION GAP 9 (8-16); ASPARTATE AMINO TRANSFERASE 27 U/L (10-37); BILIRUBIN,TOTAL 0.3 MG/DL (0.1-1.0); BLOOD UREA NITROGEN 27 MG/DL (7-18); CALCIUM 8.5 MG/DL (8.5-10.1); CHLORIDE 105 MMOL/L (99-107); GLUCOSE 156 MG/DL (70-104); POTASSIUM 4.1 MMOL/L (3.5-5.1); SODIUM 143 MMOL/L (135-145); TOTAL CARBON DIOXIDE 28.8 MMOL/L (24-32); TOTAL PROTEIN 6.3 G/DL (6.4-8.2); eGFR 86 ML/MIN
[2021-03-12] MEDS ORDERED: normal saline 1000ml 1,000 ML IV ONE (14:05)
[2021-03-12 14:34] VITALS: BP 115/83
[2021-03-12 14:51] LABS: ANISOCYTOSIS 2+; MICROCYTOSIS 1+; PLATELET ESTIMATE INCREASED; POLYCHROMASIA 1+; STOMATOCYTES 1+
[2021-03-12 14:52] LABS: HYPOCHROMASIA 1+
[2021-03-12] MEDS ORDERED: iohexol 350MG/ML 100ml bottle IV ONE (15:14)
== END 2021-03-12 17:57 | disposition short-term general hospital (02) ==
LOC: ER 12:53
DX: J96.21 Acute and chronic respiratory failure with hypoxia (principal); Z20.822 Contact with and (suspected) exposure to COVID-19; R06.02 Shortness of breath; I50.9 Heart failure, unspecified; E78.00 Pure hypercholesterolemia, unspecified; J44.9 Chronic obstructive pulmonary disease, unspecified; E11.9 Type 2 diabetes mellitus without complications; Z94.2 Lung transplant status; Z87.01 Personal history of pneumonia (recurrent); Z98.890 Other specified postprocedural states; Z79.2 Long term (current) use of antibiotics; Z79.899 Other long term (current) drug therapy
CPT/HCPCS: 36415; 71045; 71275; 80053; 83605; 84145; 84484; 85008; 85025; 85610; 87040; 87635; 93005; 93308; 99285; C9803; Q9967; 0099U

== ENCOUNTER 2021-05-02 12:10 | Inpatient (IN) | payer BC ==
[~2021-05-02] VITALS: Ht 162.6 cm; Wt 68.2 kg
[2021-05-02] MEDS ORDERED: furosemide 10 MG/1 ML 10ml inj IV ONE (13:05)
[2021-05-02 13:12] LABS: BASOPHILS # (AUTO) 0.1 X10'3 (0-0.2); BASOPHILS % (AUTO) 1.3 % (0-1); EOSINOPHILS # (AUTO) 0.3 X10'3 (0-0.9); HEMATOCRIT 34.9 % (42.0-52.0); HEMOGLOBIN 10.9 g/dl (14.0-17.9); LYMPHOCYTES # (AUTO) 0.7 X10'3 (1.1-4.8); LYMPHOCYTES % (AUTO) 16.6 % (21-51); MEAN CORPUSCULAR HEMOGLOBIN 21.9 PG (27.0-31.0); MEAN CORPUSCULAR HGB CONC 31.2 g/dL (33.0-36.5); MEAN CORPUSCULAR VOLUME 70.3 FL (78-98); MEAN PLATELET VOLUME 7.9 FL (7.4-10.4); MONOCYTES # (AUTO) 0.6 X10'3 (0-0.9); MONOCYTES % (AUTO) 12.7 % (2-12); NEUTROPHILS # (AUTO) 2.8 X10'3 (1.8-7.7); NEUTROPHILS % (AUTO) 63.4 % (42-75); PLATELET COUNT 362 X10'3 (140-440); RED BLOOD COUNT 4.97 X10'6 (4.70-6.10); RED CELL DISTRIBUTION WIDTH 20.7 % (11.5-14.5); WHITE BLOOD COUNT 4.4 X10'3 (4.5-11.0)
[2021-05-02 13:19] LABS: ABG BASE EXCESS 3.5 mmol/L (-2.0-2.0); ABG HCO3 30.8 mmol/L (22.0-26.0); ABG OXYGEN SATURATION 98.3 % (94-97); ABG PCO2 (T) 59.7 mmHg (35.0-48.0); ABG PO2 (T) 132.1 mmHg (75.0-100.0); ALLEN'S TEST POSITIVE; FCOHb 0.6 % (0.0-3.9); FLOW 4 L/min; FMetHb 0.2 % (0.0-1.5); FO2Hb 97.5 % (94-97); PATIENT TEMPERATURE 36.8; TOTAL HEMOGLOBIN 11.8 G/dl (14.0-18.0)
[2021-05-02 13:25] LABS: D-DIMER < 0.19 MG/L FEU (0-0.50)
[2021-05-02 13:26] LABS: ALANINE AMINOTRANSFERASE 20 U/L (12-78); ALKALINE PHOSPHATASE 76 IU/L (46-116); ANION GAP 5 (8-16); ASPARTATE AMINO TRANSFERASE 21 U/L (10-37); BILIRUBIN,TOTAL 0.3 MG/DL (0.1-1.0); BLOOD UREA NITROGEN 23 MG/DL (7-18); CALCIUM 8.3 MG/DL (8.5-10.1); CHLORIDE 106 MMOL/L (99-107); CREATININE 0.96 MG/DL (0.60-1.10); GLUCOSE 124 MG/DL (70-104); POTASSIUM 4.8 MMOL/L (3.5-5.1); SODIUM 144 MMOL/L (135-145); TOTAL CARBON DIOXIDE 33.5 MMOL/L (24-32); TOTAL PROTEIN 5.9 G/DL (6.4-8.2); eGFR 80 ML/MIN
[2021-05-02 14:22] LABS: ANISOCYTOSIS 3+; ELLIPTOCYTES 1+; MICROCYTOSIS 1+; PLATELET ESTIMATE NORMAL; SCHISTOCYTES FEW
--- NOTE | 2021-05-02 14:53 | NUR ---
relieving RN for lunch, pt is resting quietly on gurney, resp even and labored, moved pt up in bed, he used the urinal, 200ml of yellow urine out, sample sent to lab, gave pt jello and water and crackers, vicente well, no n/v
[2021-05-02 15:09] LABS: URINE AMPHETAMINE SCREEN NEGATIVE (Neg); URINE BARBITUATE SCREEN NEGATIVE (Neg); URINE BENZODIAZEPINES SCREEN NEGATIVE (Neg); URINE CANNABINOID SCREEN NEGATIVE (Neg); URINE COCAINE SCREEN NEGATIVE (Neg); URINE METHADONE SCREEN NEGATIVE (Neg); URINE OPIATE SCREEN NEGATIVE (Neg); URINE PHENCYCLIDINE SCREEN NEGATIVE (Neg)
[2021-05-02 15:34] LABS: ETHANOL < 0.010 GM/DL (0.0-0.010)
[2021-05-02] MEDS ORDERED: [UNRECOGNIZED DRUG - CODE] NEB (17:56)
[2021-05-02] MEDS ORDERED: ENOX60DI10 SQ (17:56)
[2021-05-02] MEDS ORDERED: GABA-530 PO (17:56)
[2021-05-02] MEDS ORDERED: SULF-14 PO (17:56)
[2021-05-02] MEDS ORDERED: PRE5T PO (17:56)
[2021-05-02] MEDS ORDERED: MAGN400T29 PO (17:56)
[2021-05-02] MEDS ORDERED: WARF1TAB83 PO (17:56)
[2021-05-02] MEDS ORDERED: TACR1CAP PO (17:56)
[2021-05-02] MEDS ORDERED: CHOL10005 PO (17:56)
[2021-05-02] MEDS ORDERED: INSU100C10 SQ (17:56)
[2021-05-02] MEDS ORDERED: AZIT250T27 PO (17:56)
[2021-05-02] MEDS ORDERED: AMLO5TAB16 PO (17:56)
[2021-05-02] MEDS ORDERED: MULT-1085 PO (17:56)
[2021-05-02] MEDS ORDERED: POSA100T2 PO (17:56)
[2021-05-02] MEDS ORDERED: MELA10TA2 PO (17:56)
--- NOTE | 2021-05-02 18:30 | NUR ---
ASSUMED CARE OF PT. PT RESTING ON BED
--- NOTE | 2021-05-02 19:45 | NUR ---
PT HAS BECOME RESTLESS, YELLING ACROSS THE ROOM TO INCREASE HIS 02 TO 6LPM, PT WAS ON 2LPM, DR LOMAX IN ROOM, ORDERED TO BUMP PT UP TO 1LPM BUT NO MORE FOR NOW, ALSO STARTED ORDER FOR 1MG ATIVAN. PT NOW MEDICATED, ON 3LPM, SATTING AT 97%. PT NOW MORE CALM AND REPORTS FEELING BETTER. TECH CHANGED OUT HIS LINENS AND HELPED HIM GET SETTLED BACK INTO BED.
[2021-05-02] MEDS ORDERED: LORazepam 2 mg/ml vial IV ONE (19:50)
--- NOTE | 2021-05-02 21:44 | NUR ---
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 HE WILL ALSO ORDER [facility].
--- NOTE | 2021-05-02 22:02 | NUR ---
DR LOMAX EVALUATED NEW EKG
[2021-05-02] MEDS ORDERED: furosemide 20MG tablet PO ONE (22:10)
--- NOTE | 2021-05-02 23:08 | NUR ---
PT MEDICATED AND RESTING COMFORTABLY, O2 RUNNING AT 2LPM NC, PT SATTING AT 96-100%
[2021-05-03] MEDS ORDERED: furosemide 20MG tablet PO SCH (08:00)
[2021-05-03] MEDS ORDERED: furosemide 20MG tablet PO ONE (08:00)
--- NOTE | 2021-05-03 09:09 | NUR ---
spoke drea ASH, stated next on list and will be here in about an hour.
[2021-05-03 13:44] LABS: ABG BASE EXCESS 8.9 mmol/L (-2.0-2.0); ABG HCO3 35.4 mmol/L (22.0-26.0); ABG OXYGEN SATURATION 94.3 % (94-97); ABG PO2 (T) 69.8 mmHg (75.0-100.0); ALLEN'S TEST POSITIVE; FCOHb 1.2 % (0.0-3.9); FLOW 3 L/min; FMetHb 0.1 % (0.0-1.5); FO2Hb 93.1 % (94-97); PATIENT TEMPERATURE 36.5; TOTAL HEMOGLOBIN 12.6 G/dl (14.0-18.0)
[2021-05-03 14:31] LABS: BASOPHILS # (AUTO) 0.1 X10'3 (0-0.2); BASOPHILS % (AUTO) 1.3 % (0-1); EOSINOPHILS # (AUTO) 0.2 X10'3 (0-0.9); EOSINOPHILS % (AUTO) 5.1 % (0-6); HEMATOCRIT 37.2 % (42.0-52.0); HEMOGLOBIN 11.8 g/dl (14.0-17.9); LYMPHOCYTES % (AUTO) 23.6 % (21-51); MEAN CORPUSCULAR HEMOGLOBIN 22.1 PG (27.0-31.0); MEAN CORPUSCULAR HGB CONC 31.6 g/dL (33.0-36.5); MEAN CORPUSCULAR VOLUME 69.9 FL (78-98); MEAN PLATELET VOLUME 8.2 FL (7.4-10.4); MONOCYTES # (AUTO) 0.6 X10'3 (0-0.9); MONOCYTES % (AUTO) 13.3 % (2-12); NEUTROPHILS # (AUTO) 2.5 X10'3 (1.8-7.7); NEUTROPHILS % (AUTO) 56.7 % (42-75); PLATELET COUNT 375 X10'3 (140-440); RED BLOOD COUNT 5.31 X10'6 (4.70-6.10); RED CELL DISTRIBUTION WIDTH 21.3 % (11.5-14.5); WHITE BLOOD COUNT 4.4 X10'3 (4.5-11.0)
[2021-05-03 14:36] LABS: ALANINE AMINOTRANSFERASE 22 U/L (12-78); ALBUMIN 3.2 G/DL (3.4-5.0); ALKALINE PHOSPHATASE 88 IU/L (46-116); ANION GAP 8 (8-16); ASPARTATE AMINO TRANSFERASE 14 U/L (10-37); BILIRUBIN,TOTAL 0.5 MG/DL (0.1-1.0); BLOOD UREA NITROGEN 25 MG/DL (7-18); CALCIUM 8.7 MG/DL (8.5-10.1); CHLORIDE 101 MMOL/L (99-107); CREATININE 1.25 MG/DL (0.60-1.10); GLUCOSE 195 MG/DL (70-104); POTASSIUM 3.9 MMOL/L (3.5-5.1); SODIUM 144 MMOL/L (135-145); TOTAL CARBON DIOXIDE 35.3 MMOL/L (24-32); TOTAL PROTEIN 6.3 G/DL (6.4-8.2); eGFR 59 ML/MIN
[2021-05-03] MEDS ORDERED: insulin Lispro (HumaLOG) vial - multi-dose SQ SCH ×2 (15:20→17:55)
[2021-05-03] MEDS ORDERED: dextrose 50%-water 50ml dispensing syringe IV PRN ×4 (15:20→17:55)
[2021-05-03] MEDS ORDERED: glucagon, human recombinant 1mg kit SUBCUT PRN ×2 (15:20→17:55)
[2021-05-03] MEDS ORDERED: dextrose ORAL solution 15 GM/59 ML bottle PO PRN ×4 (15:20→17:55)
[2021-05-03] MEDS ORDERED: MESSAGE TO PHARMACY PO ONE ×2 (15:20→17:55)
[2021-05-03] MEDS ORDERED: gabapentin 100mg capsule PO PRN (15:25)
[2021-05-03] MEDS ORDERED: azithromycin 250mg tablet PO SCH (15:25)
[2021-05-03] MEDS ORDERED: sulfamethoxazole/trimethoprim SS (400mg/80mg) tablet (single-strength) PO SCH ×2 (15:36→16:00)
[2021-05-03] MEDS ORDERED: sulfamethoxazole/trimethoprim DS (800/160mg) tablet PO SCH (15:39)
[2021-05-03 15:46] LABS: ANISOCYTOSIS 3+; MICROCYTOSIS 2+; PLATELET ESTIMATE NORMAL
[2021-05-03 15:47] LABS: ELLIPTOCYTES FEW; HYPOCHROMASIA 1+; SCHISTOCYTES FEW; STOMATOCYTES 2+
[2021-05-03] MEDS: azithromycin 250mg tablet PO SCH (16:16)
[2021-05-03] MEDS: amLODIPine 2.5mg tablet PO SCH (16:17)
[2021-05-03] MEDS ORDERED: magnesium 4gm in 100ml NS 100 ML IV PRN (16:45)
[2021-05-03] MEDS ORDERED: acetaminophen 325mg tablet PO PRN (16:45)
[2021-05-03] MEDS ORDERED: ondansetron/PF 4mg/2ml inj IV PRN (16:45)
[2021-05-03] MEDS ORDERED: potassium Cl 20 mEq SR tablet PO PRN ×2 (16:45)
[2021-05-03] MEDS ORDERED: potassium Cl 40MEQ/1/2NS 520ml 520 ML IV PRN ×2 (16:45)
[2021-05-03] MEDS ORDERED: magnesium 2GM in 50ml NS 50 ML IV PRN (16:45)
[2021-05-03] MEDS ORDERED: magnesium Cl slow-release 64mg tablet PO PRN (16:45)
--- NOTE | 2021-05-03 17:40 | NUR ---
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
[2021-05-03] MEDS ORDERED: PERFLUTREN PROTEIN-A MICROSPHR (Optison) 0.22 MG/ML 3ML VIAL IV ONE (17:55)
[2021-05-03] MEDS: nystatin 500,000 unit/5ML UD oral suspension PO SCH (18:00)
[2021-05-03] MEDS: glipizide 5mg tablet PO SCH (18:07)
[2021-05-03] MEDS: K and/or MAG REPLACEMENT MC SCH (19:37)
[2021-05-03] MEDS: tacrolimus anhydrous 1mg capsule PO SCH (20:46)
[2021-05-03] MEDS: metoprolol tartrate 12.5mg (1/2 tablet) PO SCH (20:49)
[2021-05-03] MEDS: magnesium oxide 400mg tablet PO SCH (20:50)
[2021-05-03] MEDS: pantoprazole 40mg Tablet.DR PO SCH (20:50)
[2021-05-03] MEDS: predniSONE 5mg tablet PO SCH (20:51)
[2021-05-03] MEDS: hydrOXYzine 25 MG tablet PO PRN (20:52)
[2021-05-03] MEDS: traZODone 50mg tablet PO PRN (20:52)
[2021-05-03] MEDS: Melatonin 3mg tablet PO SCH (20:52)
[2021-05-03] MEDS: enoxaparin 60mg/0.6ml syringe SQ SCH (20:53)
[2021-05-03] MEDS: insulin glargine (Lantus) pen - multi-dose SQ SCH (21:00)
[2021-05-03] MEDS ORDERED: warfarin 1mg tablet PO ONE (21:00)
[2021-05-03] MEDS ORDERED: insulin glargine (Lantus) pen - multi-dose SQ SCH (21:00)
[2021-05-04] MEDS: K and/or MAG REPLACEMENT MC SCH ×2 (08:00→20:00)
--- NOTE | 2021-05-04 08:00 | NUR ---
CALLED PHARMACY FOR MISSING MORNING MEDICATIONS FOR PT. STATED READY NOW, SENT TECH TO [facility].
[2021-05-04] MEDS: magnesium oxide 400mg tablet PO SCH ×2 (08:16→21:07)
[2021-05-04] MEDS: metoprolol tartrate 12.5mg (1/2 tablet) PO SCH ×2 (08:16→21:10)
[2021-05-04] MEDS: sulfamethoxazole/trimethoprim DS (800/160mg) tablet PO SCH (08:16)
[2021-05-04] MEDS: azithromycin 250mg tablet PO SCH (08:16)
[2021-05-04] MEDS: multivitamins, therapeutics tablet PO SCH (08:16)
[2021-05-04] MEDS: predniSONE 5mg tablet PO SCH ×2 (08:16→21:06)
[2021-05-04] MEDS: pantoprazole 40mg Tablet.DR PO SCH ×2 (08:17→21:07)
[2021-05-04] MEDS: amLODIPine 2.5mg tablet PO SCH (08:17)
[2021-05-04] MEDS: cholecalciferol (vitamin D3) 1,000 unit (25mcg) tablet PO SCH (08:17)
[2021-05-04] MEDS: POSACONAZOLE PO SCH (08:18)
[2021-05-04] MEDS: enoxaparin 60mg/0.6ml syringe SQ SCH ×2 (08:18→21:15)
[2021-05-04] MEDS: tacrolimus anhydrous 0.5mg capsule PO SCH (08:25)
[2021-05-04] MEDS: glipizide 5mg tablet PO SCH (08:48)
[2021-05-04] MEDS: CefTRIAXone 2gm/D5W 50ml BAG 50 ML IV SCH (08:51)
[2021-05-04 08:55] LABS: BASOPHILS # (AUTO) 0.1 X10'3 (0-0.2); BASOPHILS % (AUTO) 1.1 % (0-1); EOSINOPHILS # (AUTO) 0.2 X10'3 (0-0.9); EOSINOPHILS % (AUTO) 4.8 % (0-6); HEMATOCRIT 38.6 % (42.0-52.0); HEMOGLOBIN 12.1 g/dl (14.0-17.9); LYMPHOCYTES # (AUTO) 1.1 X10'3 (1.1-4.8); LYMPHOCYTES % (AUTO) 23.4 % (21-51); MEAN CORPUSCULAR HGB CONC 31.4 g/dL (33.0-36.5); MEAN PLATELET VOLUME 8.3 FL (7.4-10.4); MONOCYTES # (AUTO) 0.7 X10'3 (0-0.9); MONOCYTES % (AUTO) 14.1 % (2-12); NEUTROPHILS # (AUTO) 2.8 X10'3 (1.8-7.7); NEUTROPHILS % (AUTO) 56.6 % (42-75); PLATELET COUNT 394 X10'3 (140-440); RED BLOOD COUNT 5.51 X10'6 (4.70-6.10); RED CELL DISTRIBUTION WIDTH 21.3 % (11.5-14.5); WHITE BLOOD COUNT 4.9 X10'3 (4.5-11.0)
[2021-05-04] MEDS: sertraline 25mg tablet PO SCH (08:56)
[2021-05-04 09:03] LABS: BLOOD UREA NITROGEN 30 MG/DL (7-18); BUN/CREATININE RATIO 26.3 (5.4-32.0); CHLORIDE 103 MMOL/L (99-107); CREATININE 1.14 MG/DL (0.60-1.10); GLUCOSE 123 MG/DL (70-104); SODIUM 143 MMOL/L (135-145); eGFR 65 ML/MIN
[2021-05-04 09:04] LABS: ALBUMIN 3.2 G/DL (3.4-5.0); ANION GAP 4 (8-16); MAGNESIUM 1.9 MG/DL (1.5-2.4); TOTAL CARBON DIOXIDE 35.9 MMOL/L (24-32)
--- NOTE | 2021-05-04 09:28 | NUR ---
CALLED PHARMACY ABOUT REMAINGING MEDS MISSING STATED WILL GET READY NOW.
[2021-05-04] MEDS: nystatin 500,000 unit/5ML UD oral suspension PO SCH ×2 (10:43→14:22)
--- NOTE | 2021-05-04 10:55 | NUR ---
PT PLACED ON HOSPITAL BED.
--- NOTE | 2021-05-04 11:33 | NUR ---
ECHO AT BEDSIDE.
[2021-05-04 11:39] LABS: TOTAL CELLS COUNTED 100
[2021-05-04 11:40] LABS: ANISOCYTOSIS 3+; MICROCYTOSIS 2+; PLATELET ESTIMATE NORMAL
[2021-05-04 11:41] LABS: ELLIPTOCYTES FEW; GIANT PLATELET FEW; HYPOCHROMASIA 2+; POLYCHROMASIA 1+; STOMATOCYTES 1+; TEAR DROP CELLS FEW
[2021-05-04] MEDS: hydrOXYzine 25 MG tablet PO PRN ×2 (11:58→21:08)
--- NOTE | 2021-05-04 18:16 | NUR ---
CALL FROM ROBERT AT [facility] WHO SPOKE WITH DR PURCELL AND AWARE PT IS NOW ADMITTED. STATED [facility] IS AWAITING ROOM STILL AND WILL TOUCH BASE AGAIN TOMORROW MORNING.
[2021-05-04] MEDS ORDERED: warfarin 2.5mg tablet PO ONE (21:00)
[2021-05-04] MEDS: insulin glargine (Lantus) pen - multi-dose SQ SCH (21:00)
[2021-05-04] MEDS: Melatonin 3mg tablet PO SCH (21:07)
[2021-05-04] MEDS: traZODone 50mg tablet PO PRN (21:08)
[2021-05-05] MEDS: tacrolimus anhydrous 1mg capsule PO SCH ×2 (00:19→21:02)
[2021-05-05] MEDS: nystatin 500,000 unit/5ML UD oral suspension PO SCH ×4 (00:20→20:56)
[2021-05-05 02:00] VITALS: BP 95/57
--- NOTE | 2021-05-05 05:18 | NUR ---
Patient in bed resting at this time. no signs of distress or discomfort noted. VSS throughout shift. Patient aware of plan of care. call light and personal belongings placed within reach. instructed to call for assistance. Report given to charge nurse.
[2021-05-05 06:09] LABS: BASOPHILS # (AUTO) 0.1 X10'3 (0-0.2); BASOPHILS % (AUTO) 1.2 % (0-1); EOSINOPHILS # (AUTO) 0.2 X10'3 (0-0.9); EOSINOPHILS % (AUTO) 4.7 % (0-6); HEMATOCRIT 35.4 % (42.0-52.0); HEMOGLOBIN 11.1 g/dl (14.0-17.9); LYMPHOCYTES # (AUTO) 0.9 X10'3 (1.1-4.8); LYMPHOCYTES % (AUTO) 19.4 % (21-51); MEAN CORPUSCULAR HEMOGLOBIN 21.8 PG (27.0-31.0); MEAN CORPUSCULAR HGB CONC 31.3 g/dL (33.0-36.5); MEAN CORPUSCULAR VOLUME 69.6 FL (78-98); MEAN PLATELET VOLUME 8.3 FL (7.4-10.4); MONOCYTES # (AUTO) 0.6 X10'3 (0-0.9); MONOCYTES % (AUTO) 13.4 % (2-12); NEUTROPHILS # (AUTO) 2.7 X10'3 (1.8-7.7); NEUTROPHILS % (AUTO) 61.3 % (42-75); PLATELET COUNT 366 X10'3 (140-440); RED BLOOD COUNT 5.08 X10'6 (4.70-6.10); RED CELL DISTRIBUTION WIDTH 20.9 % (11.5-14.5); WHITE BLOOD COUNT 4.4 X10'3 (4.5-11.0)
[2021-05-05 06:23] LABS: ALBUMIN 2.9 G/DL (3.4-5.0); ANION GAP 5 (8-16); BLOOD UREA NITROGEN 34 MG/DL (7-18); BUN/CREATININE RATIO 26.4 (5.4-32.0); CALCIUM 8.7 MG/DL (8.5-10.1); CHLORIDE 102 MMOL/L (99-107); CREATININE 1.29 MG/DL (0.60-1.10); GLUCOSE 127 MG/DL (70-104); POTASSIUM 4.6 MMOL/L (3.5-5.1); SODIUM 143 MMOL/L (135-145); TOTAL CARBON DIOXIDE 35.6 MMOL/L (24-32); eGFR 57 ML/MIN
[2021-05-05 07:00] VITALS: BP 101/70
[2021-05-05] MEDS: pantoprazole 40mg Tablet.DR PO SCH ×2 (07:57→20:59)
[2021-05-05] MEDS: predniSONE 5mg tablet PO SCH ×2 (07:57→20:58)
[2021-05-05] MEDS: metoprolol tartrate 12.5mg (1/2 tablet) PO SCH ×2 (07:58→20:57)
[2021-05-05] MEDS: multivitamins, therapeutics tablet PO SCH (07:59)
[2021-05-05] MEDS: cholecalciferol (vitamin D3) 1,000 unit (25mcg) tablet PO SCH (07:59)
[2021-05-05] MEDS: magnesium oxide 400mg tablet PO SCH ×2 (07:59→20:58)
[2021-05-05] MEDS: POSACONAZOLE PO SCH (08:00)
[2021-05-05] MEDS: sulfamethoxazole/trimethoprim DS (800/160mg) tablet PO SCH (08:00)
[2021-05-05] MEDS: enoxaparin 60mg/0.6ml syringe SQ SCH ×2 (08:01→20:59)
[2021-05-05] MEDS: CefTRIAXone 2gm/D5W 50ml BAG 50 ML IV SCH (08:01)
[2021-05-05] MEDS: amLODIPine 2.5mg tablet PO SCH (08:02)
[2021-05-05] MEDS: K and/or MAG REPLACEMENT MC SCH ×2 (08:11→20:00)
[2021-05-05 11:00] VITALS: BP 101/70
[2021-05-05] MEDS: hydrOXYzine 25 MG tablet PO PRN ×2 (13:12→21:03)
[2021-05-05] MEDS: sertraline 25mg tablet PO SCH (13:21)
[2021-05-05] MEDS: tacrolimus anhydrous 0.5mg capsule PO SCH (13:22)
--- NOTE | 2021-05-05 13:22 | NUR ---
Malnutrition/Diabetes consult: Pt admitted w/ hx of pulmonary fibrosis and lung transplant that occurred on September 2020. Pt states that he has had a decline in appetite over the last couple months and has subsequently lost "at least 35lb." Previous scaled wt from July of this year shows 81.8kg and current wt this admit is 68kg though not scaled. Pt mentioned he has been feeling depressed as well from having a decreased appetite. No visible signs of muscle or fat wasting observed at bedside, no edema noted. At this time pt does not meet minimum criteria for malnutrition. Pt requested easy to chew foods and whole milk w/ breakfast; communicated w/ dietary and RN. Noted current A1C 7, was 7.1 five months ago. Written DM education w/ RD contact info placed in pt chart. Will continue to monitor. Addendum: 05/05/21 at [address] Amended: Links added.
[2021-05-05] MEDS: ipratropium/albuterol 3ml nebule NEB PRN ×2 (16:43→20:50)
--- NOTE | 2021-05-05 18:51 | NUR ---
Patient in room PCU 3012. I have received report from Clemencia RN and had the opportunity to ask questions and assume patient care.
[2021-05-05 19:35] VITALS: BP 114/71
[2021-05-05] MEDS ORDERED: warfarin 2.5mg tablet PO ONE (21:00)
[2021-05-05] MEDS: insulin glargine (Lantus) pen - multi-dose SQ SCH (21:00)
[2021-05-05] MEDS: Melatonin 3mg tablet PO SCH (21:01)
[2021-05-05] MEDS: traZODone 50mg tablet PO PRN (21:03)
[2021-05-06 06:22] LABS: BASOPHILS % (AUTO) 1.2 % (0-1); EOSINOPHILS # (AUTO) 0.2 X10'3 (0-0.9); HEMOGLOBIN 10.9 g/dl (14.0-17.9); LYMPHOCYTES # (AUTO) 1.1 X10'3 (1.1-4.8); LYMPHOCYTES % (AUTO) 25.8 % (21-51); MEAN CORPUSCULAR HGB CONC 31.1 g/dL (33.0-36.5); MEAN CORPUSCULAR VOLUME 70.8 FL (78-98); MEAN PLATELET VOLUME 8.6 FL (7.4-10.4); MONOCYTES # (AUTO) 0.6 X10'3 (0-0.9); MONOCYTES % (AUTO) 14.4 % (2-12); NEUTROPHILS # (AUTO) 2.2 X10'3 (1.8-7.7); NEUTROPHILS % (AUTO) 53.6 % (42-75); PLATELET COUNT 366 X10'3 (140-440); RED BLOOD COUNT 4.95 X10'6 (4.70-6.10); RED CELL DISTRIBUTION WIDTH 21.6 % (11.5-14.5); WHITE BLOOD COUNT 4.2 X10'3 (4.5-11.0)
[2021-05-06 06:32] LABS: ALBUMIN 2.8 G/DL (3.4-5.0); ANION GAP 7 (8-16); BLOOD UREA NITROGEN 29 MG/DL (7-18); CALCIUM 8.6 MG/DL (8.5-10.1); CHLORIDE 103 MMOL/L (99-107); CREATININE 1.26 MG/DL (0.60-1.10); GLUCOSE 121 MG/DL (70-104); MAGNESIUM 1.8 MG/DL (1.5-2.4); POTASSIUM 4.1 MMOL/L (3.5-5.1); SODIUM 143 MMOL/L (135-145); eGFR 58 ML/MIN
--- NOTE | 2021-05-06 06:48 | NUR ---
Problems reprioritized. Patient report given, questions answered & plan of care reviewed with Анна CARLOS.
--- NOTE | 2021-05-06 06:57 | NUR ---
Patient in room PCU 3012. I have received report from Britney CARLOS and had the opportunity to ask questions and assume patient care.
[2021-05-06 07:00] VITALS: BP 86/55
[2021-05-06 07:56] LABS: ANISOCYTOSIS 3+; LARGE PLATELETS FEW; MICROCYTOSIS 1+; PLATELET ESTIMATE NORMAL
[2021-05-06] MEDS: K and/or MAG REPLACEMENT MC SCH ×2 (08:00→20:00)
[2021-05-06] MEDS: CefTRIAXone 2gm/D5W 50ml BAG 50 ML IV SCH (08:07)
[2021-05-06] MEDS: metoprolol tartrate 12.5mg (1/2 tablet) PO SCH ×2 (08:07→20:04)
[2021-05-06] MEDS: magnesium oxide 400mg tablet PO SCH ×2 (08:07→20:02)
[2021-05-06] MEDS: predniSONE 5mg tablet PO SCH ×2 (08:08→20:03)
[2021-05-06] MEDS: enoxaparin 60mg/0.6ml syringe SQ SCH ×2 (08:08→20:05)
[2021-05-06] MEDS: azithromycin 250mg tablet PO SCH (08:09)
[2021-05-06] MEDS: cholecalciferol (vitamin D3) 1,000 unit (25mcg) tablet PO SCH (08:09)
[2021-05-06] MEDS: multivitamins, therapeutics tablet PO SCH (08:10)
[2021-05-06] MEDS: amLODIPine 2.5mg tablet PO SCH (08:10)
[2021-05-06] MEDS: pantoprazole 40mg Tablet.DR PO SCH ×2 (08:11→20:03)
[2021-05-06] MEDS: sulfamethoxazole/trimethoprim DS (800/160mg) tablet PO SCH (08:11)
[2021-05-06] MEDS: POSACONAZOLE PO SCH (08:12)
[2021-05-06] MEDS: sertraline 25mg tablet PO SCH (08:18)
[2021-05-06] MEDS: tacrolimus anhydrous 0.5mg capsule PO SCH (08:19)
[2021-05-06] MEDS: nystatin 500,000 unit/5ML UD oral suspension PO SCH ×3 (10:16→20:00)
[2021-05-06 11:00] VITALS: BP 108/79
--- NOTE | 2021-05-06 12:46 | NUR ---
Paged Dr. Johnson per pt request of imodium. PAGER ID: [phone] MESSAGE: RE: Deangelo Caldera 12B, pt has had 3 diarrhea and is requesting Imodium. Анна PCKailey
[2021-05-06 15:00] VITALS: BP 109/73
[2021-05-06] MEDS: hydrOXYzine 25 MG tablet PO PRN (16:48)
[2021-05-06 18:00] VITALS: BP 107/67
--- NOTE | 2021-05-06 18:06 | NUR ---
Gilberto Johnson PAGER ID: [phone] MESSAGE: RE: Verenice Bright: O2 on 3 L 89%-91% when ambulating, dropped to 82% w/o oxygen, Анна DE LEÓN
--- NOTE | 2021-05-06 18:27 | NUR ---
Problems reprioritized. Patient report given, questions answered & plan of care reviewed with Alecia Madden.
--- NOTE | 2021-05-06 19:00 | NUR ---
Imodium Pt requested imodium for diarrhea. Dr Lewis prescribed 2mg PO once.
[2021-05-06] MEDS ORDERED: loperamide 2mg capsule PO ONE (19:30)
[2021-05-06] MEDS: ipratropium/albuterol 3ml nebule NEB PRN (19:35)
[2021-05-06] MEDS ORDERED: warfarin 4mg tablet PO ONE (21:00)
[2021-05-06] MEDS: insulin glargine (Lantus) pen - multi-dose SQ SCH (21:00)
[2021-05-06] MEDS: tacrolimus anhydrous 1mg capsule PO SCH (21:12)
[2021-05-06] MEDS: traZODone 50mg tablet PO PRN (21:12)
[2021-05-06] MEDS: Melatonin 3mg tablet PO SCH (21:12)
[2021-05-06 22:00] VITALS: BP 109/76
[2021-05-06] MEDS: piperacillin/tazo 3.375gm/50ml 50 ML IV SCH (23:55)
[2021-05-07 02:00] VITALS: BP 100/70
[2021-05-07] MEDS: ipratropium/albuterol 3ml nebule NEB PRN (04:23)
[2021-05-07 05:57] LABS: BASOPHILS % (AUTO) 1.1 % (0-1); EOSINOPHILS # (AUTO) 0.2 X10'3 (0-0.9); EOSINOPHILS % (AUTO) 5.6 % (0-6); HEMATOCRIT 32.1 % (42.0-52.0); HEMOGLOBIN 10.3 g/dl (14.0-17.9); LYMPHOCYTES # (AUTO) 0.8 X10'3 (1.1-4.8); LYMPHOCYTES % (AUTO) 23.3 % (21-51); MEAN CORPUSCULAR HEMOGLOBIN 22.7 PG (27.0-31.0); MEAN CORPUSCULAR VOLUME 71.2 FL (78-98); MEAN PLATELET VOLUME 8.1 FL (7.4-10.4); MONOCYTES # (AUTO) 0.5 X10'3 (0-0.9); MONOCYTES % (AUTO) 13.8 % (2-12); NEUTROPHILS % (AUTO) 56.2 % (42-75); PLATELET COUNT 330 X10'3 (140-440); RED BLOOD COUNT 4.51 X10'6 (4.70-6.10); RED CELL DISTRIBUTION WIDTH 21.4 % (11.5-14.5); WHITE BLOOD COUNT 3.6 X10'3 (4.5-11.0)
[2021-05-07 06:00] VITALS: BP 100/69
[2021-05-07 06:10] LABS: ALBUMIN 2.8 G/DL (3.4-5.0); ANION GAP 4 (8-16); BLOOD UREA NITROGEN 27 MG/DL (7-18); BUN/CREATININE RATIO 20.8 (5.4-32.0); CALCIUM 8.4 MG/DL (8.5-10.1); CHLORIDE 104 MMOL/L (99-107); GLUCOSE 132 MG/DL (70-104); MAGNESIUM 1.9 MG/DL (1.5-2.4); POTASSIUM 4.5 MMOL/L (3.5-5.1); SODIUM 142 MMOL/L (135-145); TOTAL CARBON DIOXIDE 34.3 MMOL/L (24-32); eGFR 56 ML/MIN
--- NOTE | 2021-05-07 06:16 | NUR ---
Patient in room [place] [id number]. I have received report from Richard and had the opportunity to ask questions and assume patient care. Addendum: 05/07/21 at 0617 by Анна Tapia RN Patient in room [place] [address]. I have received report from Alecia CARLOS and had the opportunity to ask questions and assume patient care.
--- NOTE | 2021-05-07 06:17 | NUR ---
Problems reprioritized. Patient report given, questions answered & plan of care reviewed with BREANNA Jj.
[2021-05-07] MEDS: K and/or MAG REPLACEMENT MC SCH ×2 (08:00→20:00)
[2021-05-07] MEDS: CefTRIAXone 2gm/D5W 50ml BAG 50 ML IV SCH (08:54)
[2021-05-07] MEDS: sulfamethoxazole/trimethoprim DS (800/160mg) tablet PO SCH (08:55)
[2021-05-07] MEDS: POSACONAZOLE PO SCH (08:56)
[2021-05-07] MEDS: tacrolimus anhydrous 0.5mg capsule PO SCH (08:56)
[2021-05-07] MEDS: cholecalciferol (vitamin D3) 1,000 unit (25mcg) tablet PO SCH (08:57)
[2021-05-07] MEDS: enoxaparin 60mg/0.6ml syringe SQ SCH ×2 (08:57→22:11)
[2021-05-07] MEDS: nystatin 500,000 unit/5ML UD oral suspension PO SCH ×3 (08:58→19:50)
[2021-05-07] MEDS: metoprolol tartrate 12.5mg (1/2 tablet) PO SCH ×2 (08:58→19:51)
[2021-05-07] MEDS: sertraline 25mg tablet PO SCH (08:59)
[2021-05-07] MEDS: multivitamins, therapeutics tablet PO SCH (09:00)
[2021-05-07] MEDS: amLODIPine 2.5mg tablet PO SCH (09:01)
[2021-05-07] MEDS: predniSONE 5mg tablet PO SCH ×2 (09:01→20:00)
[2021-05-07] MEDS: magnesium oxide 400mg tablet PO SCH ×2 (09:01→19:51)
[2021-05-07] MEDS: pantoprazole 40mg Tablet.DR PO SCH ×2 (09:02→19:52)
[2021-05-07 09:28] LABS: ANISOCYTOSIS 3+; ELLIPTOCYTES FEW; MICROCYTOSIS 1+; PLATELET ESTIMATE NORMAL
[2021-05-07] MEDS ORDERED: [UNRECOGNIZED DRUG - OTHER] NEB SCH (10:00)
--- NOTE | 2021-05-07 10:05 | NUR ---
Paged Dr. Jimenez regarding request for imodium. PAGER ID: [phone] MESSAGE: Re: Deangelo Caldera [id number]. Pt had one time dose for Imodium. He is requesting more. can we get a PRN for diarrhea? Анна DE LEÓN
[2021-05-07] MEDS: piperacillin/tazo 3.375gm/50ml 50 ML IV SCH ×2 (10:29→16:59)
[2021-05-07 11:00] VITALS: BP 108/66
[2021-05-07] MEDS: loperamide 2mg capsule PO PRN (11:10)
[2021-05-07 15:00] VITALS: BP 102/75
--- NOTE | 2021-05-07 15:05 | NUR ---
Paged Barbara re cdiff test PAGER ID: [phone] MESSAGE: Re: Deangelo Caldera 3020: c-diff sample cancelled by lab 2 times because it was too formed. Do you still want to test for cdiff/be in iso. [facility] Анна
--- NOTE | 2021-05-07 18:36 | NUR ---
Problems reprioritized. Patient report given, questions answered & plan of care reviewed with Lorenza CARLOS.
--- NOTE | 2021-05-07 18:38 | NUR ---
Patient in room PCU 3020. I have received report from BREANNA Jj and had the opportunity to ask questions and assume patient care.
[2021-05-07 19:00] VITALS: BP 107/78
[2021-05-07] MEDS: hydrOXYzine 25 MG tablet PO PRN (19:52)
[2021-05-07] MEDS: insulin glargine (Lantus) pen - multi-dose SQ SCH (21:00)
[2021-05-07] MEDS ORDERED: warfarin 4mg tablet PO ONE (21:00)
[2021-05-07] MEDS: Melatonin 3mg tablet PO SCH (21:00)
[2021-05-07] MEDS: tacrolimus anhydrous 1mg capsule PO SCH (22:12)
[2021-05-07] MEDS: traZODone 50mg tablet PO PRN (22:13)
[2021-05-07 23:00] VITALS: BP 111/75
[2021-05-08] MEDS: piperacillin/tazo 3.375gm/50ml 50 ML IV SCH ×2 (01:03→09:58)
[2021-05-08 03:00] VITALS: BP 94/65
[2021-05-08 05:58] LABS: BASOPHILS % (AUTO) 1.1 % (0-1); EOSINOPHILS # (AUTO) 0.3 X10'3 (0-0.9); HEMATOCRIT 32.8 % (42.0-52.0); HEMOGLOBIN 10.5 g/dl (14.0-17.9); LYMPHOCYTES # (AUTO) 0.9 X10'3 (1.1-4.8); LYMPHOCYTES % (AUTO) 21.5 % (21-51); MEAN CORPUSCULAR HEMOGLOBIN 22.5 PG (27.0-31.0); MEAN CORPUSCULAR VOLUME 70.5 FL (78-98); MEAN PLATELET VOLUME 8.1 FL (7.4-10.4); MONOCYTES # (AUTO) 0.5 X10'3 (0-0.9); NEUTROPHILS # (AUTO) 2.5 X10'3 (1.8-7.7); NEUTROPHILS % (AUTO) 59.4 % (42-75); PLATELET COUNT 343 X10'3 (140-440); RED BLOOD COUNT 4.65 X10'6 (4.70-6.10); WHITE BLOOD COUNT 4.2 X10'3 (4.5-11.0)
[2021-05-08 06:00] VITALS: BP 105/81
[2021-05-08 06:08] LABS: ALBUMIN 2.9 G/DL (3.4-5.0); ANION GAP 4 (8-16); BLOOD UREA NITROGEN 22 MG/DL (7-18); BUN/CREATININE RATIO 18.6 (5.4-32.0); CALCIUM 8.7 MG/DL (8.5-10.1); CHLORIDE 105 MMOL/L (99-107); CREATININE 1.18 MG/DL (0.60-1.10); GLUCOSE 134 MG/DL (70-104); POTASSIUM 4.9 MMOL/L (3.5-5.1); SODIUM 143 MMOL/L (135-145); TOTAL CARBON DIOXIDE 34.2 MMOL/L (24-32); eGFR 63 ML/MIN
--- NOTE | 2021-05-08 06:30 | NUR ---
Problems reprioritized. Patient report given, questions answered & plan of care reviewed with BREANNA Jj.
--- NOTE | 2021-05-08 06:42 | NUR ---
Patient in room PCU 3020. I have received report from Lorenza CARLOS and had the opportunity to ask questions and assume patient care.
[2021-05-08] MEDS: magnesium oxide 400mg tablet PO SCH ×2 (08:00→08:48)
[2021-05-08] MEDS: K and/or MAG REPLACEMENT MC SCH (08:00)
[2021-05-08] MEDS: CefTRIAXone 2gm/D5W 50ml BAG 50 ML IV SCH (08:44)
[2021-05-08] MEDS: sulfamethoxazole/trimethoprim DS (800/160mg) tablet PO SCH (08:45)
[2021-05-08] MEDS: POSACONAZOLE PO SCH (08:45)
[2021-05-08] MEDS: tacrolimus anhydrous 0.5mg capsule PO SCH (08:45)
[2021-05-08] MEDS: nystatin 500,000 unit/5ML UD oral suspension PO SCH (08:47)
[2021-05-08] MEDS: azithromycin 250mg tablet PO SCH (08:47)
[2021-05-08] MEDS: enoxaparin 60mg/0.6ml syringe SQ SCH (08:47)
[2021-05-08] MEDS: pantoprazole 40mg Tablet.DR PO SCH (08:48)
[2021-05-08] MEDS: amLODIPine 2.5mg tablet PO SCH (08:49)
[2021-05-08 08:50] VITALS: BP_SYST 105
[2021-05-08] MEDS: metoprolol tartrate 12.5mg (1/2 tablet) PO SCH (08:50)
[2021-05-08] MEDS: sertraline 25mg tablet PO SCH (08:51)
[2021-05-08] MEDS: loperamide 2mg capsule PO PRN (08:51)
[2021-05-08] MEDS: cholecalciferol (vitamin D3) 1,000 unit (25mcg) tablet PO SCH (08:52)
[2021-05-08] MEDS: multivitamins, therapeutics tablet PO SCH (08:52)
[2021-05-08] MEDS: predniSONE 5mg tablet PO SCH (08:54)
--- NOTE | 2021-05-08 09:39 | NUR ---
Initial: Pt admitted w/ increasing SOB w/ hx of lung transplant per EMR. Pt continues w/ SOB though currently able to eat 100% of meals on EC7/CCHO/Heart Healthy diet meeting needs. LBM 05/07 noted to be diarrhea, receiving PRN imodium. No nutrition intervention implemented at this time, will continue to monitor. Recs: 1. Continue EC7/CCHO/Heart Healthy diet as tolerated 2. Bowel care per rx 3. Weekly wts Addendum: 05/08/21 at [address] Amended: Links added.
[2021-05-08 11:20] LABS: TOTAL CELLS COUNTED 100
[2021-05-08 11:21] LABS: ANISOCYTOSIS 3+; ELLIPTOCYTES FEW; LARGE PLATELETS FEW; MICROCYTOSIS 1+; PLATELET ESTIMATE NORMAL
--- NOTE | 2021-05-08 12:03 | NUR ---
Pt stable for transfer to [facility] per MD order. PIV discontinued and cannula intact. Tele monitor discontinued. Belongings and medications from pharmacy sent with pt. Left on gurney with emt workers. Taking an ambulance to [facility].
[2021-05-08] MEDS ORDERED: warfarin 1mg tablet PO ONE (21:00)
== END 2021-05-08 11:55 | disposition short-term general hospital (02) | DRG 205 ==
LOC: ER 12:11 → ED HOLD 05-03 16:48 → EDBEDREQ 05-04 19:36 → PCU 3S 05-04 20:40
PROVIDERS: ADMIT Internal Medicine; ATTEND Internal Medicine
DX: T86.812 Lung transplant infection (principal); J18.9 Pneumonia, unspecified organism; J96.20 Acute and chronic respiratory failure, unspecified whether with hypoxia or hypercapnia; D84.9 Immunodeficiency, unspecified; J44.0 Chronic obstructive pulmonary disease with (acute) lower respiratory infection; J98.11 Atelectasis; N17.9 Acute kidney failure, unspecified; F41.9 Anxiety disorder, unspecified; Z20.822 Contact with and (suspected) exposure to COVID-19; K21.9 Gastro-esophageal reflux disease without esophagitis; E11.9 Type 2 diabetes mellitus without complications; E78.00 Pure hypercholesterolemia, unspecified; E78.5 Hyperlipidemia, unspecified; F32.A Depression, unspecified; I11.0 Hypertensive heart disease with heart failure; I50.9 Heart failure, unspecified; Z79.01 Long term (current) use of anticoagulants; Z79.52 Long term (current) use of systemic steroids; Z79.84 Long term (current) use of oral hypoglycemic drugs; Z99.81 Dependence on supplemental oxygen; Z98.49 Cataract extraction status, unspecified eye; Z79.899 Other long term (current) drug therapy
CPT/HCPCS: 36415; 36600; 71045; 71250; 80048; 80053; 80305; 80320; 82803; 82948; 83036; 83605; 83735; 83880; 84443; 84484; 85007; 85008; 85018; 85025; 85379; 85610; 87040; 87077; 87081; 87186; 87635; 92960; 93005; 93306; 94640; 94760; 96365; 96366; 96372; 96375; 99285; C9803; G0378; J0289; J0696; J1650; J1815; J1940; J2060; J2543; J7507; J7512; Q0177